=== PATIENT | female | born 1960 | race Caucasian/White ===

== ENCOUNTER 2023-12-21 09:52 | Inpatient (IN) | payer BC, MEDICARE ==
[2023-12-21 10:45] LABS: Anisocytosis Slight; Basophils # (A) 0.1 k/uL (0-0.2); Basophils % (A) 0 %; Eosinophils # (A) 0.1 k/uL (0-0.7); Eosinophils % (A) 1 %; HCT 49.1 % (34.0-46.0); HGB 14.2 gm/dL (11.4-16.0); Hypochromasia Marked; Lymphocytes # (A) 1.2 k/uL (1.0-4.8); Lymphocytes % (A) 9 %; MCH 24.4 pg (25.0-35.0); MCHC 28.9 g/dL (31.0-37.0); MCV 84.4 fL (80.0-100.0); Mean Platelet Volume 8.5; Monocytes # (A) 0.7 k/uL (0-1.0); Monocytes % (A) 5 %; Neutrophils % (A) 83 %; Platelet Count 255 k/uL (150-450); RBC 5.82 m/uL (3.80-5.40); RDW 16.3 % (11.5-15.5); WBC 13.3 k/uL (3.8-10.6)
[2023-12-21 11:00] LABS: ALT 11 U/L (4-34); AST 23 U/L (14-36); African American GFR (CKD) >90 (>60 ml/min/1.73 sqM); Albumin 3.6 g/dL (3.5-5.0); Alkaline Phosphatase 108 U/L (38-126); Anion Gap 3 mmol/L; Blood Urea Nitrogen 21 mg/dL (7-17); Calcium 8.9 mg/dL (8.4-10.2); Carbon Dioxide 36 mmol/L (22-30); Chloride 103 mmol/L (98-107); Glucose 134 mg/dL (74-99); Non-African American GFR(CKD) >90 (>60 ml/min/1.73 sqM); Potassium 4.2 mmol/L (3.5-5.1); Sodium 142 mmol/L (137-145); Total Bilirubin 0.7 mg/dL (0.2-1.3); Total Protein 6.9 g/dL (6.3-8.2)
[2023-12-21 11:03] LABS: INR 1.1 (<1.2)
[2023-12-21 11:04] LABS: Partial Thromboplastin Time 23.7 sec (22.0-30.0); Prothrombin Time 11.4 sec (10.0-12.5)
[2023-12-21 11:07] LABS: NT-Pro-B-Type Natriuretic Pept 2190 pg/mL
--- NOTE | 2023-12-21 11:08 | XR ---
EXAMINATION TYPE: XR chest 2V DATE OF EXAM: 12/21/2023 10:49 AM CLINICAL INDICATION:Female, 63 years old with history of difficulty breathing; [facility] COMPARISON: None TECHNIQUE: XR chest 2V Frontal and lateral views of the chest. FINDINGS: Lungs/Pleura: There is no evidence of pleural effusion, focal consolidation, or pneumothorax. Pulmonary vascularity: Pulmonary vascular congestion. Heart/mediastinum: Cardiomediastinal silhouette is enlarged and stable. Musculoskeletal: No acute osseous pathology. IMPRESSION: Cardiomegaly and mild pulmonary vascular congestion. Correlate with BNP for congestive heart failure.
--- NOTE | 2023-12-21 11:58 | XR ---
EXAMINATION TYPE: XR humerus LT DATE OF EXAM: 12/21/2023 11:45 AM CLINICAL INDICATION:Female, 63 years old with history of left arm pain; [facility] COMPARISON: None TECHNIQUE: XR humerus LT examined in frontal and lateral projections. FINDINGS: No evidence of acute osseous pathology, joint dislocation, or soft tissue swelling. The rem aining portions of the visualized chest are unremarkable. IMPRESSION: 1. No acute osseous pathology. 2. Mild left shoulder osteoarthrosis.
[2023-12-21] MEDS: LORazepam 2 MG/ML INJ IV STA ×2 (12:26→15:28)
--- NOTE | 2023-12-21 13:27 | CT ---
EXAMINATION TYPE: CT chest angio for PE DATE OF EXAM: 12/21/2023 COMPARISON: Radiograph same day HISTORY: 63-year-old female SOB, hypoxic 60% tachy. TECHNIQUE: Contiguous axial scanning of the chest performed with IV Contrast, patient injected with 1 00 mL of Isovue 300. Coronal and sagittal MIP reconstructions performed. CT DLP: 1176.4 mGycm Automated exposure control for dose reduction was used. FINDINGS: Partially visualized heterogeneous and nodular appearance to the thyroid gland. This can be further e valuated with dedicated thyroid ultrasound if indicated. There is generalized anasarca change. Heart is mildly enlarged without pericardial effusion. No flattening of the interventricular septum t brie there is refluxing contrast into the hepatic veins. Ascending aorta is ectatic at 3.9 cm with mild atherosclerotic arch calcifications and bovine configu ration to the aortic arch. Large caliber to the main right and left pulmonary arteries up to 3.1 cm suggesting underlying pulmon delma artery hypertension. No large central pulmonary embolus. No definite lobar branch pulmonary embol us. However, the exam is limited due to large body habitus, suboptimal contrast bolus, and breathing motion. Many of the segmental and more distal arterial branches are very limited to nondiagnostic emb addis in these locations cannot be adequately excluded on the basis of this exam. No thoracic lymphadenopathy by CT size criteria. Extensive dependent opacities in the lower lobes with additional reticular change. Additional septal lines in the upper lungs and dependent groundglass in the upper lobes. Prominent strandy areas of ate lectasis mid and lower lungs. Possible underlying fatty infiltration of the liver. Dependent sludge in the gallbladder. Mild diffus e thickening left adrenal gland without discrete nodularity. Advanced degenerative disc disease lower thoracic and upper lumbar spine. IMPRESSION: 1. A COMBINATION OF FACTORS INCLUDING LARGE BODY HABITUS, SUBOPTIMAL CONTRAST BOLUS, AND BREATHING MO TION LIMITS THE EXAM. NO LARGE PULMONARY EMBOLUS IS SEEN IN THE CENTRAL OR LOBAR BRANCHES. SEGMENTAL AND MORE DISTAL ARTERIAL BRANCHES ARE LIMITED TO NONDIAGNOSTIC AND EMBOLI IN THESE LOCATIONS CANNOT B E EXCLUDED ON THE BASIS OF THIS EXAM. 2. ANASARCA, MILD CARDIOMEGALY, PULMONARY ARTERIAL HYPERTENSION, AND UPPER LUNG SEPTAL LINES. CORRELA TE TO EXCLUDE MILD CHF. 3. PROMINENT DEPENDENT BIBASILAR OPACITIES. CORRELATE TO EXCLUDE INFECTIOUS OR ASPIRATION PNEUMONITIS .
--- NOTE | 2023-12-21 13:53 | ED ---
SOB HPI - General Chief Complaint: Shortness of Breath Stated Complaint: SOB Time Seen by Provider: 12/21/23 10:30 Source: patient Mode of arrival: ambulatory Limitations: no limitations - History of Present Illness Initial Comments: 63-year-old female with no reported past medical conditions who presents the emergency department short of breath. is at bedside and helps provide the history. States that the patient has not seen a doctor in years. She has been short of breath for the past couple of months that she does report to upper respiratory infections but states that her breathing got worse over the past couple of days. She denies any chest pain. Does admit to a nonproductive cough. Patient has lower extremity edema. Denies history of heart failure. No history of DVT or PE. No fevers. states that she has had some non sensical speech. upon arrival to the hospital the patient had an oxygen saturation of 63%. No other alleviating, precipitating or modifying factors - Related Data Home Medications Medication Instructions Recorded Confirmed Ascorbic Acid [Vitamin C] 1,000 mg PO DAILY 12/21/23 12/21/23 Ibuprofen [Motrin Ib] 200 - 400 mg PO Q8H PRN 12/21/23 12/21/23 Vitamin D3(Unknown Dose) 1 tab PO DAILY 12/21/23 12/21/23 Zinc Gluconate [Zinc] 50 mg PO DAILY 12/21/23 12/21/23 Previous Rx's Medication Instructions Recorded Apixaban [Eliquis] 5 mg PO BID #60 tab 12/23/23 Allergies Allergy/AdvReac Type Severity Reaction Status Date / Time No Known Allergies Allergy Verified 12/21/23 12:03 Review of Systems ROS Statement: Those systems with pertinent positive or pertinent negative responses have been documented in the HPI. ROS Other: All systems not noted in ROS Statement are negative. Past Medical History Past Medical History: No Reported History History of Any Multi-Drug Resistant Organisms: None Reported Past Surgical History: No Surgical Hx Reported Past Psychological History: No Psychological Hx Reported Smoking Status: Current every day smoker Past Alcohol Use History: None Reported Past Drug Use History: None Reported General Exam Limitations: no limitations General appearance: alert, in distress Head exam: Present: atraumatic, normocephalic, normal inspection Eye exam: Present: normal appearance, PERRL, EOMI. Absent: scleral icterus, conjunctival injection, periorbital swelling ENT exam: Present: normal exam, mucous membranes moist Neck exam: Present: normal inspection. Absent: tenderness, meningismus, lymphadenopathy Respiratory exam: Present: respiratory distress, rales, accessory muscle use Cardiovascular Exam: Present: normal rhythm, tachycardia, normal heart sounds. Absent: systolic murmur, diastolic murmur, rubs, gallop, clicks GI/Abdominal exam: Present: soft, normal bowel sounds. Absent: distended, tenderness, guarding, rebound, rigid Course Vital Signs 12/21/23 12/21/23 12/21/23 10:28 10:36 11:29 Temperature 98.0 F Pulse Rate 110 H 97 Respiratory 22 20 18 Rate Blood Pressure 126/71 111/93 O2 Sat by Pulse 63 L 98 Oximetry Fraction of Inspired Oxygen (FIO2) 12/21/23 12/21/23 12/21/23 12:00 14:00 14:31 Temperature Pulse Rate 93 110 H Respiratory 24 21 Rate Blood Pressure 135/92 153/105 O2 Sat by Pulse 97 92 L Oximetry Fraction of 100 Inspired Oxygen (FIO2) 12/21/23 12/21/23 12/21/23 15:00 15:45 16:02 Temperature Pulse Rate 98 105 H Respiratory 21 17 Rate Blood Pressure 134/107 122/72 O2 Sat by Pulse 95 96 Oximetry Fraction of 100 70 Inspired Oxygen (FIO2) 12/21/23 12/21/23 12/21/23 16:15 16:32 17:00 Temperature Pulse Rate 86 90 Respiratory 20 21 Rate Blood Pressure 149/62 97/52 O2 Sat by Pulse 92 L Oximetry Fraction of 70 100 Inspired Oxygen (FIO2) 12/21/23 12/21/23 17:45 18:00 Temperature 98.2 F Pulse Rate 100 98 Respiratory 21 21 Rate Blood Pressure 129/35 129/35 O2 Sat by Pulse 98 97 Oximetry Fraction of 100 Inspired Oxygen (FIO2) Procedures - ABG Interpretation Ph: 7.2 PCO2: 88 PO2: 46 Bicarbonate: 38 Interpretation: respiratory acidosis Medical Decision Making - Medical Decision Making Was pt. sent in by a medical professional or institution (, PA, AQUATIC HABITAT BIOLOGIST, urgent care, hospital, or custodial...) When possible be specific @ -No Did you speak to anyone other than the patient for history (EMS, parent, family, police, friend...)? What history was obtained from this source @ -Spoke with for history Did you review nursing and triage notes (agree or disagree)? Why? @ -I reviewed and agree with nursing and triage notes Were old charts reviewed (outside hosp., previous admission, EMS record, old EKG, old radiological studies, urgent care reports/EKG's, custodial records)? Report findings @ -No old charts were reviewed Differential Diagnosis (chest pain, altered mental status, abdominal pain women, abdominal pain men, vaginal bleeding, weakness, fever, dyspnea, syncope, headache, dizziness, GI bleed, back pain, seizure, CVA, palpatations, mental health, musculoskeletal)? @ -Differential Dyspnea: Coronary syndrome, arrhythmia, tamponade, asthma, COPD, pulmonary embolism, pneumonia, pneumothorax, pulmonary effusion, anaphylaxis, diabetic ketoacidosis, flailed chest, pulmonary contusion, diaphragmatic rupture, anemia, neuromuscular, this is not meant to be an all-inclusive list. EKG interpreted by me (3pts min.). @ -Yes and demonstrates sinus tachycardia with a rate of 109. PA interval 100. QRS 93. QTc of 395. No acute ST segment elevations or depression X-rays interpreted by me (1pt min.). @ -Yes and demonstrates pulmonary vascular congestion CT interpreted by me (1pt min.). @ -Yes and there is no large central PE U/S interpreted by me (1pt. min.). @ -None done What testing was considered but not performed or refused? (CT, X-rays, U/S, labs)? Why? @ -None What meds were considered but not given or refused? Why? @ -None Did you discuss the management of the patient with other professionals (professionals i.e. , PA, AQUATIC HABITAT BIOLOGIST, lab, RT, psych nurse, oncology social worker, beater and pulper feeder, teacher, highway patrol officer, field nurse case manager)? Give summary @ -Spoke with Sheet Was smoking cessation discussed for >3mins.? @ -No Was critical care preformed (if so, how long)? @ -40 minutes for BiPAP management Were there social determinants of health that impacted care today? How? (Homelessness, low income, unemployed, alcoholism, drug addiction, transportation, low edu. Level, literacy, decrease access to med. care, fdc, rehab)? @ -Patient refuses to see a doctor per the . Was there de-escalation of care discussed even if they declined (Discuss DNR or withdrawal of care, Hospice)? DNR status @ -No What co-morbidities impacted this encounter? (DM, HTN, Smoking, COPD, CAD, Cancer, CVA, ARF, Chemo, Hep., AIDS, mental health diagnosis, sleep apnea, morbid obesity)? @ -None known Was patient admitted / discharged? Hospital course, mention meds given and route, prescriptions, significant lab abnormalities, going to OR and other pertinent info. @ -Admitted. Upon arrival patient was placed in trauma two. She is saturating 63%. She was placed on a nonrebreather. IV is established. Laboratory studies are conducted. Chest x-ray was performed. Due to profound hypoxia, CTA was performed of the chest. Patient requesting sedating medications for procedure and therefore she did receive [address] demonstrates no central PE. Patient reevaluated and appears to be more encephalopathic. ABG performed which demonstrates high CO2. Because of this patient is placed on BiPAP. Patient remains anxious and continuing to ask for more sedation. 0.5 mg given as to not decrease respiratory drive but necessary to have patient keep the bipap on her face. Spoke with Dr. Miller for admission. Undiagnosed new problem with uncertain prognosis? @ -yes Drug Therapy requiring intensive monitoring for toxicity (Heparin, Nitro, Insulin, Cardizem)? @ -No Were any procedures done? @ -No Diagnosis/symptom? @ -acute bipap dependant resp failure, hypoxia, new onset chf Acute, or Chronic, or Acute on Chronic? @ -acute Uncomplicated (without systemic symptoms) or Complicated (systemic symptoms)? @ -complicated Side effects of treatment? @ -No Exacerbation, Progression, or Severe Exacerbation? @ -No Poses a threat to life or bodily function? How? (Chest pain, [place], [place], pneumonia, PE, COPD, DKA, ARF, appy, cholecystitis, CVA, Diverticulitis, Homicidal, Suicidal, threat to staff... and all critical care pts) @ -yes patient arrives significantly hypoxic - Lab Data Result diagrams: 12/23/23 04:05 12/23/23 04:05 Lab Results 12/21/23 12/21/23 12/21/23 Range/Units 10:28 10:28 10:28 WBC 13.3 H (3.8-10.6) k/uL RBC 5.82 H (3.80-5.40) m/uL Hgb 14.2 (11.4-16.0) gm/dL Hct 49.1 H (34.0-46.0) % MCV 84.4 (80.0-100.0) fL MCH 24.4 L (25.0-35.0) pg MCHC 28.9 L (31.0-37.0) g/dL RDW 16.3 H (11.5-15.5) % Plt Count 255 (150-450) k/uL MPV 8.5 Neutrophils % 83 % Lymphocytes % 9 % Monocytes % 5 % Eosinophils % 1 % Basophils % 0 % Neutrophils # 11.0 H (1.3-7.7) k/uL Lymphocytes # 1.2 (1.0-4.8) k/uL Monocytes # 0.7 (0-1.0) k/uL Eosinophils # 0.1 (0-0.7) k/uL Basophils # 0.1 (0-0.2) k/uL Hypochromasia Marked Anisocytosis Slight PT 11.4 (10.0-12.5) sec INR 1.1 (<1.2) APTT 23.7 (22.0-30.0) sec D-Dimer 0.92 H (<0.60) mg/L FEU Sample Site ABG pH (7.35-7.45) ABG pCO2 (35-45) mmHg ABG pO2 (83-108) mmHg ABG HCO3 (21-25) mmol/L ABG Total CO2 (19-24) mmol/L ABG O2 Saturation (94-97) % ABG Base Excess mmol/L Que Test FiO2 % Sodium 142 (137-145) mmol/L Potassium 4.2 (3.5-5.1) mmol/L Chloride 103 (98-107) mmol/L Carbon Dioxide 36 H (22-30) mmol/L Anion Gap 3 mmol/L BUN 21 H (7-17) mg/dL Creatinine 0.54 (0.52-1.04) mg/dL Est GFR (CKD-EPI)AfAm >90 (>60 ml/min/1.73 sqM) Est GFR (CKD-EPI)NonAf >90 (>60 ml/min/1.73 sqM) Glucose 134 H (74-99) mg/dL Plasma Lactic Acid Sher (0.7-2.0) mmol/L Calcium 8.9 (8.4-10.2) mg/dL Total Bilirubin 0.7 (0.2-1.3) mg/dL AST 23 (14-36) U/L ALT 11 (4-34) U/L Alkaline Phosphatase 108 (38-126) U/L Troponin I (0.000-0.034) ng/mL NT-Pro-B Natriuret Pep 2190 pg/mL Total Protein 6.9 (6.3-8.2) g/dL Albumin 3.6 (3.5-5.0) g/dL Influenza Type A (PCR) (Not Detectd) Influenza Type B (PCR) (Not Detectd) RSV (PCR) (Not Detectd) SARS-CoV-2 (PCR) (Not Detectd) 12/21/23 12/21/23 12/21/23 Range/Units 10:28 10:28 10:28 WBC (3.8-10.6) k/uL RBC (3.80-5.40) m/uL Hgb (11.4-16.0) gm/dL Hct (34.0-46.0) % MCV (80.0-100.0) fL MCH (25.0-35.0) pg MCHC (31.0-37.0) g/dL RDW (11.5-15.5) % Plt Count (150-450) k/uL MPV Neutrophils % % Lymphocytes % % Monocytes % % Eosinophils % % Basophils % % Neutrophils # (1.3-7.7) k/uL Lymphocytes # (1.0-4.8) k/uL Monocytes # (0-1.0) k/uL Eosinophils # (0-0.7) k/uL Basophils # (0-0.2) k/uL Hypochromasia Anisocytosis PT (10.0-12.5) sec INR (<1.2) APTT (22.0-30.0) sec D-Dimer (<0.60) mg/L FEU Sample Site ABG pH (7.35-7.45) ABG pCO2 (35-45) mmHg ABG pO2 (83-108) mmHg ABG HCO3 (21-25) mmol/L ABG Total CO2 (19-24) mmol/L ABG O2 Saturation (94-97) % ABG Base Excess mmol/L Que Test FiO2 % Sodium (137-145) mmol/L Potassium (3.5-5.1) mmol/L Chloride (98-107) mmol/L Carbon Dioxide (22-30) mmol/L Anion Gap mmol/L BUN (7-17) mg/dL Creatinine (0.52-1.04) mg/dL Est GFR (CKD-EPI)AfAm (>60 ml/min/1.73 sqM) Est GFR (CKD-EPI)NonAf (>60 ml/min/1.73 sqM) Glucose (74-99) mg/dL Plasma Lactic Acid Sher 1.4 (0.7-2.0) mmol/L Calcium (8.4-10.2) mg/dL Total Bilirubin (0.2-1.3) mg/dL AST (14-36) U/L ALT (4-34) U/L Alkaline Phosphatase (38-126) U/L Troponin I 0.022 (0.000-0.034) ng/mL NT-Pro-B Natriuret Pep pg/mL Total Protein (6.3-8.2) g/dL Albumin (3.5-5.0) g/dL Influenza Type A (PCR) Not Detected (Not Detectd) Influenza Type B (PCR) Not Detected (Not Detectd) RSV (PCR) Not Detected (Not Detectd) SARS-CoV-2 (PCR) Not Detected (Not Detectd) 12/21/23 Range/Units 14:16 WBC (3.8-10.6) k/uL RBC (3.80-5.40) m/uL Hgb (11.4-16.0) gm/dL Hct (34.0-46.0) % MCV (80.0-100.0) fL MCH (25.0-35.0) pg MCHC (31.0-37.0) g/dL RDW (11.5-15.5) % Plt Count (150-450) k/uL MPV Neutrophils % % Lymphocytes % % Monocytes % % Eosinophils % % Basophils % % Neutrophils # (1.3-7.7) k/uL Lymphocytes # (1.0-4.8) k/uL Monocytes # (0-1.0) k/uL Eosinophils # (0-0.7) k/uL Basophils # (0-0.2) k/uL Hypochromasia Anisocytosis PT (10.0-12.5) sec INR (<1.2) APTT (22.0-30.0) sec D-Dimer (<0.60) mg/L FEU Sample Site Right Radial ABG pH 7.24 L (7.35-7.45) ABG pCO2 88 H* (35-45) mmHg ABG pO2 47 L* (83-108) mmHg ABG HCO3 38 H (21-25) mmol/L ABG Total CO2 41 H (19-24) mmol/L ABG O2 Saturation 77.4 L (94-97) % ABG Base Excess 10.9 mmol/L Que Test Yes FiO2 100 % Sodium (137-145) mmol/L Potassium (3.5-5.1) mmol/L Chloride (98-107) mmol/L Carbon Dioxide (22-30) mmol/L Anion Gap mmol/L BUN (7-17) mg/dL Creatinine (0.52-1.04) mg/dL Est GFR (CKD-EPI)AfAm (>60 ml/min/1.73 sqM) Est GFR (CKD-EPI)NonAf (>60 ml/min/1.73 sqM) Glucose (74-99) mg/dL Plasma Lactic Acid Sher (0.7-2.0) mmol/L Calcium (8.4-10.2) mg/dL Total Bilirubin (0.2-1.3) mg/dL AST (14-36) U/L ALT (4-34) U/L Alkaline Phosphatase (38-126) U/L Troponin I (0.000-0.034) ng/mL NT-Pro-B Natriuret Pep pg/mL Total Protein (6.3-8.2) g/dL Albumin (3.5-5.0) g/dL Influenza Type A (PCR) (Not Detectd) Influenza Type B (PCR) (Not Detectd) RSV (PCR) (Not Detectd) SARS-CoV-2 (PCR) (Not Detectd) Critical Care Time Critical Care Time: Yes Disposition Clinical Impression: Hypoxia, BiPAP (biphasic positive airway pressure) dependence, New onset of congestive heart failure Disposition: ADMITTED IP TO THIS HOSP Condition: Serious Is patient prescribed a controlled substance at d/c from ED?: No Time of Disposition: 14:32 Decision to Admit Reason: Admit from EC Decision Date: 12/21/23 Decision Time: 14:32
[2023-12-21] MEDS: FUROSEMIDE 10 MG/ML 4 ML VIAL IV STA (14:00)
[2023-12-21 14:18] LABS: ABG Base Excess 10.9 mmol/L; ABG HCO3 38 mmol/L (21-25); ABG PH 7.24 (7.35-7.45); ABG TCO2 41 mmol/L (19-24); Allen Test Performed? Yes
[2023-12-21] MEDS ORDERED: NALOXONE 0.4 MG/ML 1 ML VIAL IV PRN (14:32)
--- NOTE | 2023-12-21 16:49 | CA ---
Transthoracic Echo Report Name: Karen Chew Age: 63 Gender: F : 1960 Exam Date: 12/21/2023 15:08 Exam Location: [facility] Ht (in): 62 Wt (lb): 225 Ordering Physician: Carole Frazier DO Attending/Referring Phys: [id number], Karin Tobacco Stripping Machine Operator Melissa Dunn RCS Procedure CPT: Indications: sob, new onset heart failure Cardiac Hx: Technical Quality: Very technically difficult study Contrast 1: Definity Total Dose (mL): 2 Contrast 2: Total Dose (mL): MEASUREMENTS (Male / Female) Normal Values FINDINGS Left Ventricle Left ventricular ejection fraction is estimated at 50-55 %. Left ventricle not well visualized. Right Ventricle Right ventricle not well visualized. Right Atrium Right atrium not well visualized. Left Atrium Left atrium not well visualized. Mitral Valve Mitral valve not well visualized. Aortic Valve Aortic valve not well visualized. Tricuspid Valve Tricuspid valve not well visualized. Pulmonic Valve Pulmonic valve not well visualized. Pericardium No pericardial effusion. Aorta Aortic root and proximal ascending aorta not well visualized. CONCLUSIONS Technically suboptimal study Left ventricular systolic function appears normal Previewed by: Dr. Agustín Moon MD (Electronically Signed) Final Date: 21 December 2023 16:48
[2023-12-21 17:11] LABS: ABG Base Excess 11.3 mmol/L; ABG HCO3 38 mmol/L (21-25); ABG Oxygen Saturation 97.1 % (94-97); ABG PH 7.28 (7.35-7.45); ABG PO2 104 mmHg (83-108); ABG TCO2 41 mmol/L (19-24); Allen Test Performed? Yes
[2023-12-21 17:17] LABS: ABG PCO2 81 mmHg (35-45)
[2023-12-21 17:19] LABS: ABG Oxygen Saturation 77.4 % (94-97); ABG PCO2 88 mmHg (35-45); ABG PO2 47 mmHg (83-108)
[2023-12-21 18:17] LABS: Glucose,Whole Blood 133 mg/dL (70-110)
[2023-12-21] MEDS ORDERED: Potassium Replacement Protocol 1 EACH MISC MISCELLANE PRN (18:22)
[2023-12-21] MEDS ORDERED: Magnesium Replacement Protocol 1 EACH MISC MISCELLANE PRN (18:22)
[2023-12-21] MEDS ORDERED: DEXTROSE 50% SYRINGE 50 ML IVP PRN ×2 (20:49)
[2023-12-21] MEDS ORDERED: HEPARIN SODIUM,PORCINE 5,000 UNIT/ML 1 ML VIAL SQ SCH (21:00)
--- NOTE | 2023-12-21 21:05 | P.HPIM ---
History of Present Illness This is a pleasant 63 years of with past medical history of multiple medical problems Presents emergency room because of dyspnea, she received 1 dose of Ativan to help her get through the CAT scan. After the test patient becomes more encephalopathic and required more respiratory support and she was placed on BiPAP. Patient provided information. She follows simple commands. She has decreased breath sounds on both sides with scattered wheezing. No chest pain. Abdomen soft. Tachypneic but afebrile Labs showed mild leukocytosis of 13.3. Patient with rest of CBC is unremarkable, INR 1.1 BMP and liver function tests are unremarkable as well. pH is low 7.24 and elevated pCO2 of 81. proBNP is elevated to 190. Troponin -0.02 Influenza A and type B, RSV, SARS (coronavirus) are and detected On the preserved normal left ventricle ejection fraction of 50 to 55% but other than that it was of suboptimal study and right ventricle could not be visualized CTA of the chest showing no pulmonary embolism. Bilateral basal consolidation suspicious for infectious process. Also with evidence of CHF and cardiomegaly. With pulmonary hypertension. Patient was started on Unasyn, IV vancomycin and Solu-Medrol. Review of Systems ROS unobtainable: due to mental status Past Medical History Past Medical History: No Reported History History of Any Multi-Drug Resistant Organisms: None Reported Past Surgical History: No Surgical Hx Reported Past Psychological History: No Psychological Hx Reported Smoking Status: Current every day smoker Past Alcohol Use History: None Reported Past Drug Use History: None Reported Medications and Allergies Home Medications Medication Instructions Recorded Confirmed Type Ascorbic Acid [Vitamin C] 1,000 mg PO DAILY 12/21/23 12/21/23 History Ibuprofen [Motrin Ib] 200 - 400 mg PO Q8H PRN 12/21/23 12/21/23 History Vitamin D3(Unknown Dose) 1 tab PO DAILY 12/21/23 12/21/23 History Zinc Gluconate [Zinc] 50 mg PO DAILY 12/21/23 12/21/23 History Allergies Allergy/AdvReac Type Severity Reaction Status Date / Time No Known Allergies Allergy Verified 12/21/23 12:03 Physical Exam Vitals: Vital Signs Temp Pulse Resp BP Pulse Ox FiO2 12/21/23 20:54 40 12/21/23 19:00 101 H 22 138/95 95 12/21/23 18:00 98.2 F 98 21 129/35 97 100 12/21/23 17:45 100 21 129/35 98 12/21/23 17:00 90 21 97/52 12/21/23 16:32 100 12/21/23 16:15 86 20 149/62 92 L 70 12/21/23 16:02 70 12/21/23 15:45 105 H 17 122/72 96 100 12/21/23 15:00 98 21 134/107 95 12/21/23 14:31 100 12/21/23 14:00 110 H 21 153/105 92 L 12/21/23 12:00 93 24 135/92 97 12/21/23 11:29 97 18 111/93 98 12/21/23 10:36 20 12/21/23 10:28 98.0 F 110 H 22 126/71 63 L Intake and Output 12/21/23 12/21/23 12/21/23 06:59 14:59 22:59 Output Total 1250 Balance -1250 Output: Urine 1250 Other: Weight 102.058 kg 102.058 kg -GENERAL: The patient is, awake on BiPAP machine and cannot provide information. Obese HEENT: Pupils are round and equally reacting to light. EOMI. No scleral icterus. No conjunctival pallor. Normocephalic, atraumatic. No pharyngeal erythema. No thyromegaly. CARDIOVASCULAR: S1 and S2 present. No murmurs, rubs, or gallops. -PULMONARY: Chest is clear to auscultation, no wheezing , no crackles. Decreased air entry on both sides ABDOMEN: Soft, nontender, nondistended, normoactive bowel sounds. No palpable organomegaly. MUSCULOSKELETAL: No joint swelling or deformity. EXTREMITIES: No cyanosis, clubbing, or pedal edema. NEUROLOGICAL: Gross neurological examination did not reveal any focal deficits. SKIN: No rashes. no petechiae. Results CBC & Chem 7: 12/21/23 10:28 12/21/23 10:28 Labs: Abnormal Lab Results - Last 24 Hours (Table) 12/21/23 12/21/23 12/21/23 Range/Units 10:28 10: 10:28 WBC 13.3 H (3.8-10.6) k/uL RBC 5.82 H (3.80-5.40) m/uL Hct 49.1 H (34.0-46.0) % MCH 24.4 L (25.0-35.0) pg MCHC 28.9 L (31.0-37.0) g/dL RDW 16.3 H (11.5-15.5) % Neutrophils # 11.0 H (1.3-7.7) k/uL D-Dimer 0.92 H (<0.60) mg/L FEU ABG pH (7.35-7.45) ABG pCO2 (35-45) mmHg ABG pO2 (83-108) mmHg ABG HCO3 (21-25) mmol/L ABG Total CO2 (19-24) mmol/L ABG O2 Saturation (94-97) % Carbon Dioxide 36 H (22-30) mmol/L BUN 21 H (7-17) mg/dL Glucose 134 H (74-99) mg/dL POC Glucose (mg/dL) (70-110) mg/dL 12/21/23 12/21/23 12/21/23 Range/Units 14:16 17:04 18:15 WBC (3.8-10.6) k/uL RBC (3.80-5.40) m/uL Hct (34.0-46.0) % MCH (25.0-35.0) pg MCHC (31.0-37.0) g/dL RDW (11.5-15.5) % Neutrophils # (1.3-7.7) k/uL D-Dimer (<0.60) mg/L FEU ABG pH 7.24 L 7.28 L (7.35-7.45) ABG pCO2 88 H* 81 H* (35-45) mmHg ABG pO2 47 L* (83-108) mmHg ABG HCO3 38 H 38 H (21-25) mmol/L ABG Total CO2 41 H 41 H (19-24) mmol/L ABG O2 Saturation 77.4 L 97.1 H (94-97) % Carbon Dioxide (22-30) mmol/L BUN (7-17) mg/dL Glucose (74-99) mg/dL POC Glucose (mg/dL) 133 H (70-110) mg/dL Assessment and Plan Assessment: Acute diastolic CHF with preserved ejection fraction Acute COPD exacerbation Bilateral basal pneumonia Obesity hypoventilation syndrome Pulmonary hypertension Metabolic encephalopathy Aspiratory failure Morbid obesity with BMI of more than 40 Respiratory acidosis Plan: Ortho Continue with antibiotic, Unasyn Continue with IV Solu-Medrol Continue with Lasix IV pulmonary team consult Labs and medication were reviewed.. Continue same treatment. Continue with symptomatic treatment. Resume home medication. Monitor labs and vitals. DVT and GI prophylaxis. Further recommendations as per clinical course of the patient DVT prophylaxis: Subcutaneous heparin GI Prophylaxis: Ppi Prognosis is guarded
[2023-12-21 21:11] LABS: Glucose,Whole Blood 106 mg/dL (70-110)
--- NOTE | 2023-12-21 21:16 | P.CNPUL ---
History of Present Illness Consult date: 12/21/23 Reason for consult: dyspnea, hypoxemia History of present illness: This is a morbidly obese 63-year-old female patient with typical features of obstructive sleep apnea and obesity hypoventilation syndrome. The patient came in to the emergency department because of worsening shortness of breath. While undergoing a CAT scan of the chest, the patient also was given a dose of Ativan. Subsequently, the patient became obtunded, lethargic and sleepy. Blood gas showed hypercapnic respiratory failure probably a component of an acute on top of chronic hypercapnic respiratory failure with a pH of 7.24 with a pCO2 of 88 and pO2 of 47. Based on that, the patient was placed on a BiPAP at a pressure of 12 over 5 cm of water. Currently, the BiPAP is running and the patient is on FiO2 100% which is gradually being weaned off. Most recent blood gas showed a pH of 7.28 with a pCO2 of 81 and pO2 of 104. She is able to generate a tidal volume of 3 50-400. She underwent a CT angiogram of the chest that was suboptimal and there was no evidence of any central pulmonary embolism. There was anasarca with mild cardiomegaly and pulmonary arterial hypertension and mild component of CHF as the patient had upper lung septal lines being more prominent and thickened. The patient also had some atelectatic changes and early pneumonitis in the lower lobes bilaterally. Echocardiogram was again suboptimal due to her body habitus. The patient had a preserved LV function without any valvular abnormalities. Blood work shows chronic metabolic alkalosis with a serum bicarb of 36 and a sodium level of 142 and a potassium level of 4.2. WBC count of 13.3 with a hemoglobin 14.2 and a platelet count of 255. The viral panel has been negative. proBNP level is 2190. Troponins are 0.02. Smoking status is not known. Review of Systems ROS unobtainable: due to mental status Past Medical History Past Medical History: No Reported History History of Any Multi-Drug Resistant Organisms: None Reported Past Surgical History: No Surgical Hx Reported, Unable to Obtain Past Anesthesia/Blood Transfusion Reactions: Unable to Obtain Past Psychological History: No Psychological Hx Reported Smoking Status: Current every day smoker Past Alcohol Use History: None Reported Past Drug Use History: None Reported Medications and Allergies Home Medications Medication Instructions Recorded Confirmed Type Ascorbic Acid [Vitamin C] 1,000 mg PO DAILY 12/21/23 12/21/23 History Ibuprofen [Motrin Ib] 200 - 400 mg PO Q8H PRN 12/21/23 12/21/23 History Vitamin D3(Unknown Dose) 1 tab PO DAILY 12/21/23 12/21/23 History Zinc Gluconate [Zinc] 50 mg PO DAILY 12/21/23 12/21/23 History Allergies Allergy/AdvReac Type Severity Reaction Status Date / Time No Known Allergies Allergy Verified 12/21/23 12:03 Physical Exam Vitals: Vital Signs Temp Pulse Resp BP Pulse Ox FiO2 12/21/23 20:54 40 12/21/23 19:00 101 H 22 138/95 95 12/21/23 18:00 98.2 F 98 21 129/35 97 100 12/21/23 17:45 100 21 129/35 98 12/21/23 17:00 90 21 97/52 12/21/23 16:32 100 12/21/23 16:15 86 20 149/62 92 L 70 12/21/23 16:02 70 12/21/23 15:45 105 H 17 122/72 96 100 12/21/23 15:00 98 21 134/107 95 12/21/23 14:31 100 12/21/23 14:00 110 H 21 153/105 92 L 12/21/23 12:00 93 24 135/92 97 12/21/23 11:29 97 18 111/93 98 12/21/23 10:36 20 12/21/23 10:28 98.0 F 110 H 22 126/71 63 L Intake and Output 12/21/23 12/21/23 12/21/23 06:59 14:59 22:59 Output Total 1250 Balance -1250 Output: Urine 1250 Other: Weight 102.058 kg 102.058 kg Morbidly obese with a BMI of 41.2, lethargic, sleepy and she is able to tolerate the BiPAP without having any major difficulties. Head exam was generally normal. There was no scleral icterus or corneal arcus. Mucous membranes were moist. Neck was supple and without jugular venous distension, thyromegaly, or carotid bruits. Carotids were easily palpable bilaterally. There was no adenopathy. Carotid a posterior pharynx with a Mallampati class IV Lung sounds are diminished bilaterally along with prolongation of the expiratory phase of breathing as Per wheezes Heart sounds are distant, positive S1-S2, no significant murmurs could be appreciated. Abdomen is obese and nontender. Organs cannot be accurately felt. No direct tenderness. No rebound tenderness. No guarding. Extremities reveal +1 pitting edema and there is no cyanosis or clubbing. Examination of the skin revealed no evidence of significant rashes, suspicious appearing nevi or other concerning lesions. Neurologic exam reveals that the patient is withdrawing only to painful stimulation. She is still encephalopathic related to hypercapnic respiratory failure and CO2 narcosis. Pupils are equal reactive to light. No focal neurological deficits. Results - Laboratory Findings CBC and BMP: 12/21/23 10:28 12/21/23 10:28 ABG ABG pH 7.28 (7.35-7.45) L 12/21/23 17:04 ABG pCO2 81 mmHg (35-45) H* 12/21/23 17:04 ABG pO2 104 mmHg (83-108) 12/21/23 17:04 ABG O2 Saturation 97.1 % (94-97) H 12/21/23 17:04 PT/INR, D-dimer PT 11.4 sec (10.0-12.5) 12/21/23 10:28 INR 1.1 (<1.2) 12/21/23 10:28 D-Dimer 0.92 mg/L FEU (<0.60) H 12/21/23 10:28 Abnormal lab findings: Abnormal Labs 12/21/23 12/21/23 12/21/23 10:28 10:28 10:28 WBC 13.3 H RBC 5.82 H Hct 49.1 H MCH 24.4 L MCHC 28.9 L RDW 16.3 H Neutrophils # 11.0 H D-Dimer 0.92 H ABG pH ABG pCO2 ABG pO2 ABG HCO3 ABG Total CO2 ABG O2 Saturation Carbon Dioxide 36 H BUN 21 H Glucose 134 H POC Glucose (mg/dL) 12/21/23 12/21/23 12/21/23 14:16 17:04 18:15 WBC RBC Hct MCH MCHC RDW Neutrophils # D-Dimer ABG pH 7.24 L 7.28 L ABG pCO2 88 H* 81 H* ABG pO2 47 L* ABG HCO3 38 H 38 H ABG Total CO2 41 H 41 H ABG O2 Saturation 77.4 L 97.1 H Carbon Dioxide BUN Glucose POC Glucose (mg/dL) 133 H - Diagnostic Findings Chest x-ray: image reviewed CT scan - chest: image reviewed Assessment and Plan Plan: Acute on chronic hypercapnic and hypoxic respiratory failure, currently on a BiPAP pressure of 12 over 8 cm of water and FiO2 is being titrated. Blood gas was noted. CT of the chest was noted Morbid obesity with a BMI of 41.2 Obstructive sleep apnea along with a component of obesity hypoventilation syndrome, clinically suspected and the patient has chronic metabolic alkalosis suggestive of chronic hypercapnic respiratory failure COPD with prolongation of exhalation of breathing is Explained wheezes CHF with preserved LV function and the patient is interstitial edema, pulmonary arterial hypertension with prominent pulmonary arteries on the CT of the chest and the patient is increased edema lower extremities. The proBNP level has been mildly elevated at 2190 CO2 narcosis with diminished level of consciousness secondary to above Plan Will start the patient on DuoNeb nebulized treatments [id number] Will continue BiPAP therapy at the same pressures and will wean down FiO2 as tolerated and will monitor the blood gases Will put the patient on Lasix 40 mg IV every 8 hours and monitor the fluid balance Will start the patient on IV Solu-Medrol 60 mg every 6 hours Cover the patient empiric antibiotic with Unasyn Will monitor mental status anticipate recovery of the patient's recovery from hypercapnic respiratory failure Will continue to follow up this patient closely in the intensive care unit. Avoid narcotics. Avoid benzodiazepines. Lovenox 40 mg subcu for DVT prophylaxis Aspiration precautions and keep the patient n.p.o. for now Sliding scale insulin coverage Will obtain further history once the patient is more alert and awake. Outpatient polysomnography and treatment accordingly at the later stage. Time with Patient: Greater than 30
[2023-12-21] MEDS: INSULIN ASPART (NovoLOG) 100 UNIT/ML VIAL SQ SCH ×2 (21:21→23:55)
[2023-12-21] MEDS: NICOTINE 21MG/24HR PATCH TRANSDERM SCH (21:22)
[2023-12-21] MEDS: AMPICILLIN-SULBACTAM 3 GM in SODIUM CHLORIDE 0.9% 100 ML IVPB SCH (23:36)
[2023-12-21] MEDS: FUROSEMIDE 10 MG/ML 4 ML VIAL IV SCH (23:37)
[2023-12-21] MEDS: methylPREDNISolone SOD SUCCI 125 MG/2 ML VIAL IV SCH (23:37)
[2023-12-21 23:54] LABS: Glucose,Whole Blood 105 mg/dL (70-110)
[2023-12-22] MEDS: IPRATROPIUM-ALBUTEROL 3 ML NEB INHALATION SCH (01:32)
[2023-12-22 04:34] LABS: Basophils % (A) 0 %; Eosinophils # (A) 0.1 k/uL (0-0.7); Eosinophils % (A) 0 %; HCT 47.5 % (34.0-46.0); HGB 13.6 gm/dL (11.4-16.0); Hypochromasia Marked; Lymphocytes # (A) 0.3 k/uL (1.0-4.8); Lymphocytes % (A) 2 %; MCH 24.9 pg (25.0-35.0); MCHC 28.6 g/dL (31.0-37.0); MCV 87.4 fL (80.0-100.0); Mean Platelet Volume 9.1; Monocytes # (A) 0.6 k/uL (0-1.0); Monocytes % (A) 4 %; Neutrophils # (A) 15.3 k/uL (1.3-7.7); Neutrophils % (A) 94 %; Platelet Count 207 k/uL (150-450); RBC 5.44 m/uL (3.80-5.40); WBC 16.3 k/uL (3.8-10.6)
[2023-12-22 05:00] LABS: African American GFR (CKD) >90 (>60 ml/min/1.73 sqM); Blood Urea Nitrogen 21 mg/dL (7-17); Calcium 8.3 mg/dL (8.4-10.2); Chloride 102 mmol/L (98-107); Glucose 124 mg/dL (74-99); Magnesium 1.8 mg/dL (1.6-2.3); Non-African American GFR(CKD) >90 (>60 ml/min/1.73 sqM); Potassium 4.7 mmol/L (3.5-5.1); Sodium 143 mmol/L (137-145)
[2023-12-22 05:07] LABS: Anion Gap 6 mmol/L; Carbon Dioxide 35 mmol/L (22-30)
[2023-12-22 05:13] LABS: Glucose,Whole Blood 131 mg/dL (70-110)
[2023-12-22] MEDS: PANTOPRAZOLE 40 MG/10 ML VIAL IV SCH (07:48)
[2023-12-22] MEDS: ENOXAPARIN 40 MG/0.4 ML SYRINGE SQ SCH (07:58)
--- NOTE | 2023-12-22 07:59 | P.CRDCN ---
History of Present Illness Consult date: 12/22/23 Chief complaint: SOB History of present illness: This is a 63-year-old female patient with a past medical history significant for smoking and COPD and morbid obesity. No prior history of coronary artery disease or congestive heart failure or cardiac arrhythmia. She is also morbidly obese. The patient is currently in the intensive care unit. She is on BiPAP and she is extremely poor historian and lethargic. History was taken from the chart as well as from the nurse taking care of the patient. The patient presented to the hospital with a few weeks progressive shortness of breath associated with bilateral lower extremities edema. No cough and no sputum production. No fever and no chills. No indication of any chest pain or chest d iscomfort. She was hypoxic when she presented with oxygen saturation in the 60s. She was started on BiPAP and she was admitted to the intensive care unit. Currently she is hemodynamically stable. She underwent further workup including an EKG and that showed sinus mechanism with no significant ST or T wave abnormalities and chest x-ray showed pulmonary vascular congestions and pleural effusion. CT scan of the chest came in to be unremarkable for pulmonary embolism after D-dimer came in to be abnormal. Beside that her WBC was elevated. Renal function and electrolytes were within normal limits. No troponin was performed. In the morning she was noted to be in "atrial fibrillation". Reviewing the EKG showed only sinus mechanism with PACs. The echo revealed normal LV systolic function but the echo was technically very difficult. On examination she has distant heart sounds with regular rhythm and diminished breathing sounds bilaterally and bilateral lower extremities edema. Currently she is on Lasix IV. Assessment Acute hypoxic respiratory failure likely secondary to COPD and CHF Heart failure exacerbation secondary to heart failure with a preserved ejection fraction Morbid obesity Cardiac arrhythmia with PACs at this point No atrial fibrillation was noted Multiple comorbid conditions Plan Continue the current dose of Lasix IV Continue monitoring the kidney function and electrolytes The echo was reviewed as described above Rule out acute coronary syndrome by obtaining serial cardiac enzymes Follow-up with the pt Past Medical History Past Medical History: No Reported History History of Any Multi-Drug Resistant Organisms: None Reported Past Surgical History: No Surgical Hx Reported, Unable to Obtain Past Anesthesia/Blood Transfusion Reactions: Unable to Obtain Past Psychological History: No Psychological Hx Reported Smoking Status: Current every day smoker Past Alcohol Use History: None Reported Past Drug Use History: None Reported Medications and Allergies Home Medications Medication Instructions Recorded Confirmed Type Ascorbic Acid [Vitamin C] 1,000 mg PO DAILY 12/21/23 12/21/23 History Ibuprofen [Motrin Ib] 200 - 400 mg PO Q8H PRN 12/21/23 12/21/23 History Vitamin D3(Unknown Dose) 1 tab PO DAILY 12/21/23 12/21/23 History Zinc Gluconate [Zinc] 50 mg PO DAILY 12/21/23 12/21/23 History Allergies Allergy/AdvReac Type Severity Reaction Status Date / Time No Known Allergies Allergy Verified 12/21/23 12:03 Physical Exam Vitals: Vital Signs Temp Pulse Resp BP Pulse Ox FiO2 12/22/23 07:00 98.6 F 111 H 24 136/69 88 L 12/22/23 06:00 110 H 15 127/76 88 L 100 12/22/23 05:14 110 H 12/22/23 05:00 101 H 18 120/84 89 L 100 12/22/23 04:00 98.9 F 106 H 23 123/67 90 L 40 12/22/23 03:00 94 27 H 115/61 93 L 12/22/23 02:00 99.3 F 94 25 H 127/70 90 L 12/22/23 01:43 90 12/22/23 01:32 93 90 12/22/23 01:00 109 H 25 H 135/67 91 L 12/22/23 00:01 94 27 H 135/67 93 L 12/22/23 00:00 112 H 27 H 126/70 94 L 90 12/21/23 23:00 100.0 F H 96 27 H 127/71 93 L 90 12/21/23 22:00 90 23 132/71 93 L 12/21/23 21:37 90 12/21/23 21:00 88 21 140/96 94 L 12/21/23 20:54 40 12/21/23 20:00 97.7 F 91 24 140/95 95 100 12/21/23 19:00 101 H 22 138/95 95 12/21/23 18:00 98.2 F 98 21 129/35 97 100 12/21/23 17:45 100 21 129/35 98 12/21/23 17:00 90 21 97/52 12/21/23 16:32 100 12/21/23 16:15 86 20 149/62 92 L 70 02/28/24 16:02 70 12/21/23 15:45 105 H 17 122/72 96 100 12/21/23 15:00 98 21 134/107 95 12/21/23 14:31 100 12/21/23 14:00 110 H 21 153/105 92 L 12/21/23 12:00 93 24 135/92 97 12/21/23 11:29 97 18 111/93 98 12/21/23 10:36 20 12/21/23 10:28 98.0 F 110 H 22 126/71 63 L Intake and Output 12/21/23 12/22/23 12/22/23 22:59 06:59 14:59 Intake Total 200 Output Total 1500 1445 50 Balance -1500 -1245 -50 Intake: Intake, IV Titration 200 Amount Ampicillin-Sulbactam 3 gm 200 In Sodium Chloride 0.9% 100 ml @ 200 mls/hr IVPB Q8HR [facility] Rx#:[id number] Output: Urine 1500 1445 50 Other: Voiding Method Indwelling Catheter Indwelling Catheter Weight 102.058 kg 117.8 kg Results 12/22/23 04:01 12/22/23 04:01 Cardiac Enzymes 12/21/23 12/21/23 Range/Units 10: 10: AST 23 (14-36) U/L Troponin I 0.022 (0.000-0.034) ng/mL Coagulation 12/21/23 Range/Units 10: PT 11.4 (10.0-12.5) sec APTT 23.7 (22.0-30.0) sec CBC 12/21/23 12/22/23 Range/Units 10:28 04:01 WBC 13.3 H 16.3 H (3.8-10.6) k/uL RBC 5.82 H 5.44 H (3.80-5.40) m/uL Hgb 14.2 13.6 (11.4-16.0) gm/dL Hct 49.1 H 47.5 H (34.0-46.0) % Plt Count 255 207 (150-450) k/uL Comprehensive Metabolic Panel 12/21/23 12/22/23 Range/Units 10:28 04:01 Sodium 142 143 (137-145) mmol/L Potassium 4.2 4.7 (3.5-5.1) mmol/L Chloride 103 102 (98-107) mmol/L Carbon Dioxide 36 H 35 H (22-30) mmol/L BUN 21 H 21 H (7-17) mg/dL Creatinine 0.54 0.62 (0.52-1.04) mg/dL Glucose 134 H 124 H (74-99) mg/dL Calcium 8.9 8.3 L (8.4-10.2) mg/dL AST 23 (14-36) U/L ALT 11 (4-34) U/L Alkaline Phosphatase 108 (38-126) U/L Total Protein 6.9 (6.3-8.2) g/dL Albumin 3.6 (3.5-5.0) g/dL Current Medications Generic Name Dose Route Start Last Admin Trade Name Freq PRN Reason Stop Dose Admin Albuterol/Ipratropium 3 ml 12/22/23 00:00 12/22/23 04:59 Ipratropium-Albuterol 3 Ml Neb INHALATION 3 ml RT-Q4H LUKASZ Administration Dextrose/Water 25 ml 12/21/23 20:49 Dextrose 50% Syringe 50 Ml IVP PER PROTOCOL PRN Hypoglycemia Protocol Dextrose/Water 50 ml 12/21/23 20:49 Dextrose 50% Syringe 50 Ml IVP PER PROTOCOL PRN Hypoglycemia Protocol Enoxaparin Sodium 40 mg 12/22/23 09:00 Enoxaparin 40 Mg/0.4 Ml Syringe SQ DAILY LUKASZ Furosemide 40 mg 12/22/23 00:00 12/22/23 07:45 Furosemide 10 Mg/Ml 4 Ml Vial IV 40 mg Q8HR LUKASZ Administration Ampicillin Sodium/Sulbactam 100 mls @ 200 mls/hr 12/22/23 00:00 12/21/23 23:36 Sodium 3 gm/ Sodium Chloride IVPB 200 mls/hr Q8HR LUKASZ Administration Protocol Insulin Aspart 0 unit 12/22/23 00:00 12/22/23 05:21 Insulin Aspart (Novolog) 100 Unit/Ml Vial SQ Not Given Q6H LUKASZ Protocol Methylprednisolone Sodium Succinate 60 mg 12/22/23 00:00 12/22/23 05:35 Methylprednisolone Sod Succi 125 Mg/2 Ml Vial IV 60 mg Q6HR [facility]UKAS[facility] Administration Miscellaneous Information 1 each 12/21/23 18:22 Potassium Replacement Protocol 1 Each Misc MISCELLANE DAILY PRN Per Protocol Miscellaneous Information 1 each 12/21/23 18:22 Magnesium Replacement Protocol 1 Each Mis MISCELLANE DAILY PRN Per Protocol Protocol Naloxone HCl 0.2 mg 12/21/23 14:32 Naloxone 0.4 Mg/Ml 1 Ml Vial IV Q2M PRN Opioid Reversal Nicotine 1 patch 12/21/23 20:45 12/21/23 21:22 Nicotine 21mg/24hr Patch TRANSDERM 1 patch DAILY LUKASZ Administration Pantoprazole Sodium 40 mg 12/22/23 09:00 12/22/23 07:48 Pantoprazole 40 Mg/10 Ml Vial IV 40 mg DAILY LUKASZ Administration Intake and Output 12/21/23 12/22/23 12/22/23 22:59 06:59 14:59 Intake Total 200 Output Total 1500 1445 50 Balance -1500 -1245 -50 Intake: Intake, IV Titration 200 Amount Ampicillin-Sulbactam 3 gm 200 In Sodium Chloride 0.9% 100 ml @ 200 mls/hr IVPB Q8HR [facility] Rx#:[id number] Output: Urine 1500 1445 50 Other: Voiding Method Indwelling Catheter Indwelling Catheter Weight 102.058 kg 117.8 kg 12/22/23 04:01 12/22/23 04:01
--- NOTE | 2023-12-22 08:42 | XR ---
EXAMINATION TYPE: XR chest 1V portable DATE OF EXAM: 12/22/2023 8:03 AM CLINICAL INDICATION:Female, 63 years old with history of on bipap, chf; [facility] COMPARISON: Chest radiographs from 12/13/2023 TECHNIQUE: XR chest 1V portable Frontal view of the chest. FINDINGS: Lungs/Pleura: No evidence of focal consolidation or pneumothorax. Blunting of the costophrenic angles is present. Pulmonary vascularity: Pulmonary vascular congestion. Heart/mediastinum: Cardiomediastinal silhouette is enlarged and stable. Musculoskeletal: No acute osseous pathology. Other findings: None IMPRESSION: Cardiomegaly, pulmonary vascular congestion and bilateral pleural effusions. Correlate with BNP for c ongestive heart failure.
[2023-12-22 09:21] LABS: ABG Base Excess 13.5 mmol/L; ABG HCO3 37 mmol/L (21-25); ABG Oxygen Saturation 92.3 % (94-97); ABG PCO2 51 mmHg (35-45); ABG PH 7.47 (7.35-7.45); ABG TCO2 39 mmol/L (19-24)
[2023-12-22 09:23] LABS: ABG PO2 56 mmHg (83-108); Allen Test Performed? y
--- NOTE | 2023-12-22 09:56 | P.PN ---
Subjective This is a pleasant 63 years of with past medical history of multiple medical problems Presents emergency room because of dyspnea, she received 1 dose of Ativan to help her get through the CAT scan. After the test patient becomes more encephalopathic and required more respiratory support and she was placed on BiPAP. Patient provided information. She follows simple commands. She has decreased breath sounds on both sides with scattered wheezing. No chest pain. Abdomen soft. Tachypneic but afebrile Labs showed mild leukocytosis of 13.3. Patient with rest of CBC is unremarkable, INR 1.1 BMP and liver function tests are unremarkable as well. pH is low 7.24 and elevated pCO2 of 81. proBNP is elevated to 190. Troponin -0.02 Influenza A and type B, RSV, SARS (coronavirus) are and detected On the preserved normal left ventricle ejection fraction of 50 to 55% but other than that it was of suboptimal study and right ventricle could not be visualized CTA of the chest showing no pulmonary embolism. Bilateral basal consolidation suspicious for infectious process. Also with evidence of CHF and cardiomegaly. With pulmonary hypertension. Patient was started on Unasyn, IV vancomycin and Solu-Medrol. 12/22/2023 Patient remains in the ICU in critical condition but improving Today his mentation improved significantly and she is awake alert but drowsy and is still mildly confused but she follows commands. She remains on BiPAP this morning with mild tachycardia and tachypnea, heart rate was 124 and a breathing rate 24. Her acidotic pH improved 7.48 and pCO2 back to reference range at 51. Repeat troponin this morning is -0.019. Chest x-ray showing cardiomegaly with CHF and pleural effusion. WBC 16.3 but patient is on steroids BMP is unremarkable Remains on Unasyn, IV Lasix 40 mg every 8 hours and Solu-Medrol 60 mg Review of systems CONSTITUTIONAL: No fever, no malaise, no fatigue. HEENT: No recent visual problems or hearing problems. Denied any sore throat. CARDIOVASCULAR: No orthopnea, PND, no palpitations, no syncope. GASTROINTESTINAL: No diarrhea, no nausea, no vomiting, no abdominal pain. Normoactive bowel sounds. MUSCULOSKELETAL/RHEUMATOLOGICAL: Denies any joint pain, swelling, or any muscle pain. ENDOCRINE: Denies any polyuria or polydipsia. Active Medications Generic Name Dose Route Start Last Admin Trade Name Freq PRN Reason Stop Dose Admin Albuterol/Ipratropium 3 ml 12/22/23 00:00 12/22/23 08:23 Ipratropium-Albuterol 3 Ml Neb INHALATION 3 ml RT-Q4H LUKASZ Administration Dextrose/Water 25 ml 12/21/23 20:49 Dextrose 50% Syringe 50 Ml IVP PER PROTOCOL PRN Hypoglycemia Protocol Dextrose/Water 50 ml 12/21/23 20:49 Dextrose 50% Syringe 50 Ml IVP PER PROTOCOL PRN Hypoglycemia Protocol Enoxaparin Sodium 40 mg 12/22/23 09:00 12/22/23 07:58 Enoxaparin 40 Mg/0.4 Ml Syringe SQ 40 mg DAILY LUKASZ Administration Furosemide 40 mg 12/22/23 00:00 12/22/23 07:45 Furosemide 10 Mg/Ml 4 Ml Vial IV 40 mg Q8HR LUKASZ Administration Ampicillin Sodium/Sulbactam 100 mls @ 200 mls/hr 12/22/23 00:00 12/22/23 07:58 Sodium 3 gm/ Sodium Chloride IVPB 200 mls/hr Q8HR LUKASZ Administration Protocol Insulin Aspart 0 unit 12/22/23 00:00 12/22/23 05:21 Insulin Aspart (Novolog) 100 Unit/Ml Vial SQ Not Given Q6H LUKASZ Protocol Methylprednisolone Sodium Succinate 60 mg 12/22/23 00:00 12/22/23 05:35 Methylprednisolone Sod Succi 125 Mg/2 Ml Vial IV 60 mg Q6HR LUKASZ Administration Miscellaneous Information 1 each 12/21/23 18:22 Potassium Replacement Protocol 1 Each Misc MISCELLANE DAILY PRN Per Protocol Miscellaneous Information 1 each 12/21/23 18:22 Magnesium Replacement Protocol 1 Each Misc MISCELLANE DAILY PRN Per Protocol Protocol Naloxone HCl 0.2 mg 12/21/23 14:32 Naloxone 0.4 Mg/Ml 1 Ml Vial IV Q2M PRN Opioid Reversal Nicotine 1 patch 12/21/23 20:45 12/22/23 07:59 Nicotine 21mg/24hr Patch TRANSDERM 1 patch DAILY LUKASZ Administration Pantoprazole Sodium 40 mg 12/22/23 09:00 12/22/23 07:48 Pantoprazole 40 Mg/10 Ml Vial IV 40 mg DAILY LUKASZ Administration Objective - Vital Signs Vital signs: Vital Signs Temp 99.3 F 12/22/23 08:00 Pulse 124 H 12/22/23 09:00 Resp 24 12/22/23 09:00 BP 126/74 12/22/23 09:00 Pulse Ox 87 L 12/22/23 09:00 FiO2 100 12/22/23 08:24 Intake & Output 12/21/23 12/22/23 12/22/23 18:59 06:59 18:59 Intake Total 200 110 Output Total 1200 1745 550 Balance -4990 -1545 -215 Weight 102.058 kg 117.8 kg Intake: IV 10 .9NS 10 Intake, IV Titration 200 100 Amount Ampicillin-Sulbactam 3 gm 200 100 In Sodium Chloride 0.9% 100 ml @ 200 mls/hr IVPB Q8HR [facility] Rx#:[id number] Output: Urine 1200 1745 550 Other: Voiding Method Indwelling Catheter - Exam -GENERAL: The patient is alert and oriented x3, not in any acute distress. Obese HEENT: Pupils are round and equally reacting to light. EOMI. No scleral icterus. No conjunctival pallor. Normocephalic, atraumatic. No pharyngeal erythema. No thyromegaly. CARDIOVASCULAR: S1 and S2 present. No murmurs, rubs, or gallops. -PULMONARY: Chest is clear to auscultation, bilateral scattered wheezing , no crackles. Decreased air entry on both sides ABDOMEN: Soft, nontender, nondistended, normoactive bowel sounds. No palpable o rganomegaly. MUSCULOSKELETAL: No joint swelling or deformity. EXTREMITIES: No cyanosis, clubbing, or pedal edema. NEUROLOGICAL: Gross neurological examination did not reveal any focal deficits. SKIN: No rashes. no petechiae. - Labs CBC & Chem 7: 12/22/23 04:01 12/22/23 04:01 Labs: Abnormal Lab Results - Last 24 Hours (Table) 12/21/23 12/21/23 12/21/23 Range/Units 10:28 10:28 10:28 WBC 13.3 H (3.8-10.6) k/uL RBC 5.82 H (3.80-5.40) m/uL Hct 49.1 H (34.0-46.0) % MCH 24.4 L (25.0-35.0) pg MCHC 28.9 L (31.0-37.0) g/dL RDW 16.3 H (11.5-15.5) % Neutrophils # 11.0 H (1.3-7.7) k/uL Lymphocytes # (1.0-4.8) k/uL D-Dimer 0.92 H (<0.60) mg/L FEU ABG pH (7.35-7.45) ABG pCO2 (35-45) mmHg ABG pO2 (83-108) mmHg ABG HCO3 (21-25) mmol/L ABG Total CO2 (19-24) mmol/L ABG O2 Saturation (94-97) % Carbon Dioxide 36 H (22-30) mmol/L BUN 21 H (7-17) mg/dL Glucose 134 H (74-99) mg/dL POC Glucose (mg/dL) (70-110) mg/dL Hemoglobin A1c (<=6.0) % Calcium (8.4-10.2) mg/dL 12/21/23 12/21/23 12/21/23 Range/Units 14:16 17:04 18:15 WBC (3.8-10.6) k/uL RBC (3.80-5.40) m/uL Hct (34.0-46.0) % MCH (25.0-35.0) pg MCHC (31.0-37.0) g/dL RDW (11.5-15.5) % Neutrophils # (1.3-7.7) k/uL Lymphocytes # (1.0-4.8) k/uL D-Dimer (<0.60) mg/L FEU ABG pH 7.24 L 7.28 L (7.35-7.45) ABG pCO2 88 H* 81 H* (35-45) mmHg ABG pO2 47 L* (83-108) mmHg ABG HCO3 38 H 38 H (21-25) mmol/L ABG Total CO2 41 H 41 H (19-24) mmol/L ABG O2 Saturation 77.4 L 97.1 H (94-97) % Carbon Dioxide (22-30) mmol/L BUN (7-17) mg/dL Glucose (74-99) mg/dL POC Glucose (mg/dL) 133 H (70-110) mg/dL Hemoglobin A1c (<=6.0) % Calcium (8.4-10.2) mg/dL 12/22/23 12/22/23 12/22/23 Range/Units 04:01 04:01 04:01 WBC 16.3 H (3.8-10.6) k/uL RBC 5.44 H (3.80-5.40) m/uL Hct 47.5 H (34.0-46.0) % MCH 24.9 L (25.0-35.0) pg MCHC 28.6 L (31.0-37.0) g/dL RDW 16.0 H (11.5-15.5) % Neutrophils # 15.3 H (1.3-7.7) k/uL Lymphocytes # 0.3 L (1.0-4.8) k/uL D-Dimer (<0.60) mg/L FEU ABG pH (7.35-7.45) ABG pCO2 (35-45) mmHg ABG pO2 (83-108) mmHg ABG HCO3 (21-25) mmol/L ABG Total CO2 (19-24) mmol/L ABG O2 Saturation (94-97) % Carbon Dioxide 35 H (22-30) mmol/L BUN 21 H (7-17) mg/dL Glucose 124 H (74-99) mg/dL POC Glucose (mg/dL) (70-110) mg/dL Hemoglobin A1c 6.7 H (<=6.0) % Calcium 8.3 L (8.4-10.2) mg/dL 12/22/23 12/22/23 Range/Units 05:12 09:18 WBC (3.8-10.6) k/uL RBC (3.80-5.40) m/uL Hct (34.0-46.0) % MCH (25.0-35.0) pg MCHC (31.0-37.0) g/dL RDW (11.5-15.5) % Neutrophils # (1.3-7.7) k/uL Lymphocytes # (1.0-4.8) k/uL D-Dimer (<0.60) mg/L FEU ABG pH 7.47 H (7.35-7.45) ABG pCO2 51 H (35-45) mmHg ABG pO2 56 L* (83-108) mmHg ABG HCO3 37 H (21-25) mmol/L ABG Total CO2 39 H (19-24) mmol/L ABG O2 Saturation 92.3 L (94-97) % Carbon Dioxide (22-30) mmol/L BUN (7-17) mg/dL Glucose (74-99) mg/dL POC Glucose (mg/dL) 131 H (70-110) mg/dL Hemoglobin A1c (<=6.0) % Calcium (8.4-10.2) mg/dL Assessment and Plan Assessment: Acute diastolic CHF with preserved ejection fraction Acute COPD exacerbation Bilateral basal pneumonia is suspected Obesity hypoventilation syndrome Pulmonary hypertension Metabolic encephalopathy Acute hypoxemic hypercapnic failure Morbid obesity with BMI of more than 40 Respiratory acidosis Plan: Continue with antibiotic, Unasyn Continue with IV Solu-Medrol Continue with Lasix IV Cardiology and pulmonary team consult Labs and medication were reviewed.. Continue same treatment. Continue with symptomatic treatment. Resume home medication. Monitor labs and vitals. DVT and GI prophylaxis. Further recommendations as per clinical course of the patient DVT prophylaxis: Subcutaneous heparin GI Prophylaxis: Ppi Prognosis is guarded
[2023-12-22 12:19] LABS: Glucose,Whole Blood 149 mg/dL (70-110)
--- NOTE | 2023-12-22 14:08 | P.PN ---
Subjective Progress Note Date: 12/22/23 This is a morbidly obese 63-year-old female patient with typical features of obstructive sleep apnea and obesity hypoventilation syndrome. The patient came in to the emergency department because of worsening shortness of breath. While undergoing a CAT scan of the chest, the patient also was given a dose of Ativan. Subsequently, the patient became obtunded, lethargic and sleepy. Blood gas showed hypercapnic respiratory failure probably a component of an acute on top of chronic hypercapnic respiratory failure with a pH of 7.24 with a pCO2 of 88 and pO2 of 47. Based on that, the patient was placed on a BiPAP at a pressure of 12 over 5 cm of water. Currently, the BiPAP is running and the patient is on FiO2 100% which is gradually being weaned off. Most recent blood gas showed a pH of 7.28 with a pCO2 of 81 and pO2 of 104. She is able to generate a tidal volume of 3 50-400. She underwent a CT angiogram of the chest that was suboptimal and there was no evidence of any central pulmonary embolism. There was anasarca with mild cardiomegaly and pulmonary arterial hypertension and mild component of CHF as the patient had upper lung septal lines being more prominent and thickened. The patient also had some atelectatic changes and early pneumonitis in the lower lobes bilaterally. Echocardiogram was again suboptimal due to her body habitus. The patient had a preserved LV function without any valvular abnormalities. Blood work shows chronic metabolic alkalosis with a serum bicarb of 36 and a sodium level of 142 and a potassium level of 4.2. WBC count of 13.3 with a hemoglobin 14.2 and a platelet count of 255. The viral panel has been negative. proBNP level is 2190. Troponins are 0.02. Smoking status is not known. On today's evaluation of 12/22/2023, the patient is being seen for a follow-up. The patient is more alert compared to yesterday. Overnight, the patient was kept on a BiPAP essentially on the same setting of 14 over 8 cm of water. FiO2 remains at 100% and the patient is not showing significant improvement in oxygenation. Nevertheless, neurologically she is more awake compared to yesterday. Follow-up blood gas was done And this was on the current BiPAP setting and it showed a pH of 7.47 with a pCO2 of 51 and a pO2 of 56 and there is improvement in the patient's hypercapnia. The patient is able to follow simple commands. She is able to communicate. The repeat chest x-ray from today was reviewed and there is cardiomegaly and pulm vascular congestion and small bilateral pleural effusion. The patient remains on diuretics and she is on Lasix 40 mg IV every 8 hours. Overall fluid balance is -2.7 L over the past 24 hours. Her white cell count today is at 16.3 with hemoglobin 15.6 and a platelet count of 207. Sodium is at 143, BUN is at 21 with a creatinine of 0.6 and a potassium level is at 4.7 and a serum bicarb is at 35. As mentioned, troponins are negative and the is at 0.02 and 0.01 respectively. The viral panel has been negative. She remains on bronchodilators. She remains on IV Solu-Medrol 60 mg every 6 hours and she is also on empiric antibiotic coverage with IV Unasyn. Objective - Vital Signs Vital signs: Vital Signs Temp 99.3 F 12/22/23 08:00 Pulse 100 12/22/23 08:37 Resp 20 12/22/23 08:37 BP 104/85 12/22/23 07:40 Pulse Ox 88 L 12/22/23 08:24 FiO2 100 12/22/23 08:24 Intake & Output 12/21/23 12/22/23 12/22/23 18:59 06:59 18:59 Intake Total 200 105 Output Total 1200 1745 400 Balance -1200 -1545 -295 Weight 102.058 kg 117.8 kg Intake: IV 5 .9NS 5 Intake, IV Titration 200 100 Amount Ampicillin-Sulbactam 3 gm 200 100 In Sodium Chloride 0.9% 100 ml @ 200 mls/hr IVPB Q8HR [facility] Rx#:[id number] Output: Urine 1200 1745 400 Other: Voiding Method Indwelling Catheter - Exam Morbidly obese with a BMI of 41.2, lethargic, sleepy and she is able to tolerate the BiPAP without having any major difficulties. The patient is currently on a BiPAP at a pressure of 14 over 8 cm of water with an FiO2 of 100% Head exam was generally normal. There was no scleral icterus or corneal arcus. Mucous membranes were moist. Neck was supple and without jugular venous distension, thyromegaly, or carotid bruits. Carotids were easily palpable bilaterally. There was no adenopathy. Carotid a posterior pharynx with a Mallampati class IV Lung sounds are diminished bilaterally along with prolongation of the expiratory phase of breathing as Per wheezes Heart sounds are distant, positive S1-S2, no significant murmurs could be appreciated. Abdomen is obese and nontender. Organs cannot be accurately felt. No direct tenderness. No rebound tenderness. No guarding. Extremities reveal +1 pitting edema and there is no cyanosis or clubbing. Examination of the skin revealed no evidence of significant rashes, suspicious appearing nevi or other concerning lesions. Neurologic exam reveals that the patient is arousable and more awake compared to yesterday and the patient continues to improve Pupils are equal reactive to light. No focal neurological deficits. She is following simple commands and moving all 4 extremities without any limitation - Labs CBC & Chem 7: 12/22/23 04:01 12/22/23 04:01 Labs: Abnormal Lab Results - Last 24 Hours (Table) 12/21/23 12/21/23 12/21/23 Range/Units 10:28 10:28 10:28 WBC 13.3 H (3.8-10.6) k/uL RBC 5.82 H (3.80-5.40) m/uL Hct 49.1 H (34.0-46.0) % MCH 24.4 L (25.0-35.0) pg MCHC 28.9 L (31.0-37.0) g/dL RDW 16.3 H (11.5-15.5) % Neutrophils # 11.0 H (1.3-7.7) k/uL Lymphocytes # (1.0-4.8) k/uL D-Dimer 0.92 H (<0.60) mg/L FEU ABG pH (7.35-7.45) ABG pCO2 (35-45) mmHg ABG pO2 (83-108) mmHg ABG HCO3 (21-25) mmol/L ABG Total CO2 (19-24) mmol/L ABG O2 Saturation (94-97) % Carbon Dioxide 36 H (22-30) mmol/L BUN 21 H (7-17) mg/dL Glucose 134 H (74-99) mg/dL POC Glucose (mg/dL) (70-110) mg/dL Hemoglobin A1c (<=6.0) % Calcium (8.4-10.2) mg/dL 12/21/23 12/21/23 12/21/23 Range/Units 14:16 17:04 18:15 WBC (3.8-10.6) k/uL RBC (3.80-5.40) m/uL Hct (34.0-46.0) % MCH (25.0-35.0) pg MCHC (31.0-37.0) g/dL RDW (11.5-15.5) % Neutrophils # (1.3-7.7) k/uL Lymphocytes # (1.0-4.8) k/uL D-Dimer (<0.60) mg/L FEU ABG pH 7.24 L 7.28 L (7.35-7.45) ABG pCO2 88 H* 81 H* (35-45) mmHg ABG pO2 47 L* (83-108) mmHg ABG HCO3 38 H 38 H (21-25) mmol/L ABG Total CO2 41 H 41 H (19-24) mmol/L ABG O2 Saturation 77.4 L 97.1 H (94-97) % Carbon Dioxide (22-30) mmol/L BUN (7-17) mg/dL Glucose (74-99) mg/dL POC Glucose (mg/dL) 133 H (70-110) mg/dL Hemoglobin A1c (<=6.0) % Calcium (8.4-10.2) mg/dL 12/22/23 12/22/23 12/22/23 Range/Units 04:01 04:01 04:01 WBC 16.3 H (3.8-10.6) k/uL RBC 5.44 H (3.80-5.40) m/uL Hct 47.5 H (34.0-46.0) % MCH 24.9 L (25.0-35.0) pg MCHC 28.6 L (31.0-37.0) g/dL RDW 16.0 H (11.5-15.5) % Neutrophils # 15.3 H (1.3-7.7) k/uL Lymphocytes # 0.3 L (1.0-4.8) k/uL D-Dimer (<0.60) mg/L FEU ABG pH (7.35-7.45) ABG pCO2 (35-45) mmHg ABG pO2 (83-108) mmHg ABG HCO3 (21-25) mmol/L ABG Total CO2 (19-24) mmol/L ABG O2 Saturation (94-97) % Carbon Dioxide 35 H (22-30) mmol/L BUN 21 H (7-17) mg/dL Glucose 124 H (74-99) mg/dL POC Glucose (mg/dL) (70-110) mg/dL Hemoglobin A1c 6.7 H (<=6.0) % Calcium 8.3 L (8.4-10.2) mg/dL 12/22/23 Range/Units 05:12 WBC (3.8-10.6) k/uL RBC (3.80-5.40) m/uL Hct (34.0-46.0) % MCH (25.0-35.0) pg MCHC (31.0-37.0) g/dL RDW (11.5-15.5) % Neutrophils # (1.3-7.7) k/uL Lymphocytes # (1.0-4.8) k/uL D-Dimer (<0.60) mg/L FEU ABG pH (7.35-7.45) ABG pCO2 (35-45) mmHg ABG pO2 (83-108) mmHg ABG HCO3 (21-25) mmol/L ABG Total CO2 (19-24) mmol/L ABG O2 Saturation (94-97) % Carbon Dioxide (22-30) mmol/L BUN (7-17) mg/dL Glucose (74-99) mg/dL POC Glucose (mg/dL) 131 H (70-110) mg/dL Hemoglobin A1c (<=6.0) % Calcium (8.4-10.2) mg/dL Assessment and Plan Plan: Acute on chronic hypercapnic and hypoxic respiratory failure, currently on a BiPAP pressure of 1 14/8 cm of water and FiO2 is being titrated. Blood gas was noted. CT of the chest was noted. The patient remains on FiO2 of 100%. The patient is still showing signs of hypoxemia on today's blood gas although the hypercapnia and acid-base status is improved on BiPAP therapy. She is also being treated with bronchodilators, steroids and diuretics. She is also on empiric antibiotic coverage with IV Unasyn suspecting bibasilar pneumonia. Morbid obesity with a BMI of 41.2 Obstructive sleep apnea along with a component of obesity hypoventilation syndrome, clinically suspected and the patient has chronic metabolic alkalosis suggestive of chronic hypercapnic respiratory failure COPD with prolongation of exhalation of breathing is Explained wheezes, currently on a combination of bronchodilators and steroids. CHF with preserved LV function and the patient is interstitial edema, pulmonary arterial hypertension with prominent pulmonary arteries on the CT of the chest and the patient is increased edema lower extremities. The proBNP level has been mildly elevated at 2190 CO2 narcosis with diminished level of consciousness secondary to above Smoker, 1 PPD Plan Continue BiPAP at the same setting, attempt to wean down FiO2 allowing the pulse ox as low as 88%. Continue DuoNeb nebulized treatments [id number] Continue diuresis with Lasix 40 mg IV every 8 hours and monitor the fluid balance Continue IV Solu-Medrol 60 mg every 6 hours Continue empiric antibiotic with Unasyn Will monitor mental status anticipate recovery of the patient's recovery from hypercapnic respiratory failure Will continue to follow up this patient closely in the intensive care unit. Avoid narcotics. Avoid benzodiazepines. Lovenox 40 mg subcu for DVT prophylaxis Neurologically more awake compared to yesterday. Will keep the patient n.p.o. for now as the patient is receiving continuous BiPAP therapy. Sliding scale insulin coverage Will keep the patient in the intensive care unit. Will continue to follow.
[2023-12-22] MEDS: MAGNESIUM SULFATE-D5W PMX 1 GM in DEXTROSE/WATER 1 100ML.BAG IVPB ONE (15:43)
[2023-12-22 17:55] LABS: Glucose,Whole Blood 154 mg/dL (70-110)
[2023-12-22] MEDS: DILTIAZEM 125 MG in SODIUM CHLORIDE 0.9% 100 ML IV SCH (18:32)
[2023-12-22] MEDS: DILTIAZEM DRIP BOLUS FROM BAG 1 MG SOLN IV STA (18:32)
[2023-12-22] MEDS: HEPARIN SOD,PORK IN 0.45% NACL 25,000 UNIT in 0.45% NACL 1 250ML.BAG IV SCH (18:39)
[2023-12-22] MEDS: HEPARIN SODIUM 1,000 UN/ML (10ML VL) IV ONE (18:43)
[2023-12-22 18:47] LABS: Anisocytosis Slight; Basophils % (A) 0 %; Eosinophils # (A) 0.1 k/uL (0-0.7); Eosinophils % (A) 0 %; HCT 47.7 % (34.0-46.0); HGB 13.7 gm/dL (11.4-16.0); Hypochromasia Marked; Lymphocytes # (A) 0.4 k/uL (1.0-4.8); Lymphocytes % (A) 2 %; MCH 24.4 pg (25.0-35.0); MCHC 28.8 g/dL (31.0-37.0); MCV 84.8 fL (80.0-100.0); Mean Platelet Volume 8.4; Monocytes # (A) 0.5 k/uL (0-1.0); Monocytes % (A) 3 %; Neutrophils # (A) 13.3 k/uL (1.3-7.7); Neutrophils % (A) 93 %; Platelet Count 208 k/uL (150-450); RBC 5.62 m/uL (3.80-5.40); RDW 16.2 % (11.5-15.5); WBC 14.3 k/uL (3.8-10.6)
[2023-12-22 19:44] LABS: INR 1.1 (<1.2); Partial Thromboplastin Time 23.9 sec (22.0-30.0); Prothrombin Time 12.1 sec (10.0-12.5)
[2023-12-22 23:17] LABS: Glucose,Whole Blood 170 mg/dL (70-110)
[2023-12-23] MEDS: HEPARIN SODIUM 1,000 UN/ML (10ML VL) IV PRN (01:37)
[2023-12-23 04:29] LABS: Anisocytosis Slight; Basophils % (A) 0 %; Eosinophils % (A) 0 %; HCT 44.7 % (34.0-46.0); Hypochromasia Marked; Lymphocytes # (A) 0.3 k/uL (1.0-4.8); Lymphocytes % (A) 2 %; MCH 24.4 pg (25.0-35.0); MCHC 29.1 g/dL (31.0-37.0); MCV 83.9 fL (80.0-100.0); Mean Platelet Volume 8.5; Monocytes # (A) 0.8 k/uL (0-1.0); Monocytes % (A) 6 %; Neutrophils # (A) 13.2 k/uL (1.3-7.7); Neutrophils % (A) 92 %; Platelet Count 180 k/uL (150-450); RBC 5.32 m/uL (3.80-5.40); RDW 16.4 % (11.5-15.5); WBC 14.4 k/uL (3.8-10.6)
[2023-12-23 04:37] LABS: African American GFR (CKD) >90 (>60 ml/min/1.73 sqM); Blood Urea Nitrogen 36 mg/dL (7-17); Calcium 8.2 mg/dL (8.4-10.2); Chloride 97 mmol/L (98-107); Glucose 164 mg/dL (74-99); Magnesium 2.1 mg/dL (1.6-2.3); Non-African American GFR(CKD) >90 (>60 ml/min/1.73 sqM); Potassium 3.9 mmol/L (3.5-5.1); Sodium 140 mmol/L (137-145)
[2023-12-23 04:38] LABS: INR 1.2 (<1.2); Partial Thromboplastin Time 51.3 sec (22.0-30.0); Prothrombin Time 12.5 sec (10.0-12.5)
[2023-12-23 05:16] LABS: Anion Gap 8 mmol/L; Carbon Dioxide 35 mmol/L (22-30)
[2023-12-23 05:28] LABS: Glucose,Whole Blood 162 mg/dL (70-110)
[2023-12-23] MEDS: POTASSIUM CHLORIDE ER 20 MEQ TAB.ER PO SCH (05:38)
--- NOTE | 2023-12-23 07:45 | P.PN ---
Subjective Progress Note Date: 12/23/23 Principal diagnosis: CHF This is a 63-year-old female patient with a past medical history significant for smoking and COPD and morbid obesity. No prior history of coronary artery disease or congestive heart failure or cardiac arrhythmia. She is also morbidly obese. The patient is currently in the intensive care unit. She is on BiPAP and she is extremely poor historian and lethargic. History was taken from the chart as well as from the nurse taking care of the patient. The patient presented to the hospital with a few weeks progressive shortness of breath associated with bilateral lower extremities edema. No cough and no sputum production. No fever and no chills. No indication of any chest pain or chest discomfort. She was hypoxic when she presented with oxygen saturation in the 60s. She was started on BiPAP and she was admitted to the intensive care unit. Currently she is hemodynamically stable. She underwent further workup including an EKG and that showed sinus mechanism with no significant ST or T wave abnormalities and chest x-ray showed pulmonary vascular congestions and pleural effusion. CT scan of the chest came in to be unremarkable for pulmonary embolism after D-dimer came in to be abnormal. Beside that her WBC was elevated. Renal function and electrolytes were within normal limits. No troponin was performed. In the morning she was noted to be in "atrial fibrillation". Reviewing the EKG showed only sinus mechanism with PACs. The echo revealed normal LV systolic function but the echo was technically very difficult. On examination she has distant heart sounds with regular rhythm and diminished breathing sounds bilaterally and bilateral lower extremities edema. Currently she is on Lasix IV. December 23, 2023 The patient was seen and evaluated this morning. She is on BiPAP at this point. She is hemodynamically stable. She went into atrial fibrillation/atrial flutter with overall controlled heart rate on the current dose of Cardizem IV. Beside that she is on heparin IV. She has been diuresing well on the current dose of Lasix IV. From the cardiovascular standpoint of view, we will continue the current medical regimen and continue heparin IV and consider switching the patient to oral anticoagulation down the line as well as start the patient on beta-silvia and try to wean her from Cardizem IV. The examination is remarkable for bilateral lower extremities edema with diminished breathing sounds bilaterally and irregular rhythm. Assessment Acute hypoxic respiratory failure likely secondary to COPD and CHF Heart failure exacerbation secondary to heart failure with a preserved ejection fraction Morbid obesity Cardiac arrhythmia with PACs at this point Atrial fibrillation which is new Multiple comorbid cond She has been diuresing well on the current dose of Lasix IV.itions Plan Continue the current dose of Lasix IV Continue monitoring the kidney function and electrolytes The echo was reviewed as described above Continue heparin IV and consider switching the patient to oral anticoagulation Start beta-silvia and try to wean the patient from Cardizem IV Follow-up with the patient Objective - Vital Signs Vital signs: Vital Signs Temp 98.6 F 12/23/23 00:00 Pulse 79 12/23/23 07:00 Resp 18 12/23/23 07:00 BP 132/68 12/23/23 07:00 Pulse Ox 88 L 12/23/23 07:00 FiO2 70 12/23/23 04:53 Intake & Output 12/22/23 12/23/23 12/23/23 18:59 06:59 18:59 Intake Total 255 322.833 Output Total 1210 975 Balance -195 -732.167 Weight 144.2 kg Intake: IV 55 165 .9NS 55 65 Ampicillin-Sulbactam 3 gm 100 In Sodium Chloride 0.9% 100 ml @ 200 mls/hr IVPB Q8HR [facility] Rx#:[id number] Intake, IV Titration 200 157.833 Amount Ampicillin-Sulbactam 3 gm 100 In Sodium Chloride 0.9% 100 ml @ 200 mls/hr IVPB Q8HR [facility] Rx#:[id number] Diltiazem 125 mg In 88 Sodium Chloride 0.9% 100 ml @ 10 MG/HR 10 mls/hr IV .[id number] [facility] Rx#: [id number] Heparin Sod,Pork in 0.45% 69.833 NaCl 25,000 unit In 0.45 % NaCl 1 250ml.bag @ 8.49 UNITS/KG/HR 10.001 mls/ hr IV .Q24H [facility] Rx#: [id number] Magnesium Sulfate-D5w Pmx 100 1 gm In Dextrose/Water 1 100ml.bag @ 100 mls/hr IVPB ONCE ONE Rx#: [id number] Output: Urine 1210 975 Other: Voiding Method Indwelling Catheter Indwelling Catheter - Labs CBC & Chem 7: 12/23/23 04:05 12/23/23 04:05 Labs: Abnormal Lab Results - Last 24 Hours (Table) 12/22/23 12/22/23 12/22/23 Range/Units 04:01 09:18 12:17 WBC (3.8-10.6) k/uL RBC (3.80-5.40) m/uL Hct (34.0-46.0) % MCH (25.0-35.0) pg MCHC (31.0-37.0) g/dL RDW (11.5-15.5) % Neutrophils # (1.3-7.7) k/uL Lymphocytes # (1.0-4.8) k/uL INR (<1.2) APTT (22.0-30.0) sec ABG pH 7.47 H (7.35-7.45) ABG pCO2 51 H (35-45) mmHg ABG pO2 56 L* (83-108) mmHg ABG HCO3 37 H (21-25) mmol/L ABG Total CO2 39 H (19-24) mmol/L ABG O2 Saturation 92.3 L (94-97) % Chloride (98-107) mmol/L Carbon Dioxide (22-30) mmol/L BUN (7-17) mg/dL Glucose (74-99) mg/dL POC Glucose (mg/dL) 149 H (70-110) mg/dL Hemoglobin A1c 6.7 H (<=6.0) % Calcium (8.4-10.2) mg/dL 12/22/23 12/22/23 12/22/23 Range/Units 17:53 18:22 23:16 WBC 14.3 H (3.8-10.6) k/uL RBC 5.62 H (3.80-5.40) m/uL Hct 47.7 H (34.0-46.0) % MCH 24.4 L (25.0-35.0) pg MCHC 28.8 L (31.0-37.0) g/dL RDW 16.2 H (11.5-15.5) % Neutrophils # 13.3 H (1.3-7.7) k/uL Lymphocytes # 0.4 L (1.0-4.8) k/uL INR (<1.2) APTT (22.0-30.0) sec ABG pH (7.35-7.45) ABG pCO2 (35-45) mmHg ABG pO2 (83-108) mmHg ABG HCO3 (21-25) mmol/L ABG Total CO2 (19-24) mmol/L ABG O2 Saturation (94-97) % Chloride (98-107) mmol/L Carbon Dioxide (22-30) mmol/L BUN (7-17) mg/dL Glucose (74-99) mg/dL POC Glucose (mg/dL) 154 H 170 H (70-110) mg/dL Hemoglobin A1c (<=6.0) % Calcium (8.4-10.2) mg/dL 12/23/23 12/23/23 12/23/23 Range/Units 04:05 04:05 04:05 WBC 14.4 H (3.8-10.6) k/uL RBC (3.80-5.40) m/uL Hct (34.0-46.0) % MCH 24.4 L (25.0-35.0) pg MCHC 29.1 L (31.0-37.0) g/dL RDW 16.4 H (11.5-15.5) % Neutrophils # 13.2 H (1.3-7.7) k/uL Lymphocytes # 0.3 L (1.0-4.8) k/uL INR 1.2 H (<1.2) APTT 51.3 H (22.0-30.0) sec ABG pH (7.35-7.45) ABG pCO2 (35-45) mmHg ABG pO2 (83-108) mmHg ABG HCO3 (21-25) mmol/L ABG Total CO2 (19-24) mmol/L ABG O2 Saturation (94-97) % Chloride 97 L (98-107) mmol/L Carbon Dioxide 35 H (22-30) mmol/L BUN 36 H (7-17) mg/dL Glucose 164 H (74-99) mg/dL POC Glucose (mg/dL) (70-110) mg/dL Hemoglobin A1c (<=6.0) % Calcium 8.2 L (8.4-10.2) mg/dL 12/23/23 Range/Units 05:27 WBC (3.8-10.6) k/uL RBC (3.80-5.40) m/uL Hct (34.0-46.0) % MCH (25.0-35.0) pg MCHC (31.0-37.0) g/dL RDW (11.5-15.5) % Neutrophils # (1.3-7.7) k/uL Lymphocytes # (1.0-4.8) k/uL INR (<1.2) APTT (22.0-30.0) sec ABG pH (7.35-7.45) ABG pCO2 (35-45) mmHg ABG pO2 (83-108) mmHg ABG HCO3 (21-25) mmol/L ABG Total CO2 (19-24) mmol/L ABG O2 Saturation (94-97) % Chloride (98-107) mmol/L Carbon Dioxide (22-30) mmol/L BUN (7-17) mg/dL Glucose (74-99) mg/dL POC Glucose (mg/dL) 162 H (70-110) mg/dL Hemoglobin A1c (<=6.0) % Calcium (8.4-10.2) mg/dL
[2023-12-23] MEDS: METOPROLOL TARTRATE 25 MG TAB PO SCH (08:50)
--- NOTE | 2023-12-23 08:51 | XR ---
EXAMINATION TYPE: XR chest 1V portable DATE OF EXAM: 12/23/2023 4:25 AM CLINICAL INDICATION:Female, 63 years old with history of assess lungs; [facility] COMPARISON: Chest radiographs from 12/22/2023 TECHNIQUE: XR chest 1V portable Frontal view of the chest. FINDINGS: Lungs/Pleura: There is no evidence of pleural effusion, focal consolidation, or pneumothorax. Pulmonary vascularity: Pulmonary vascular congestion. Heart/mediastinum: Cardiomediastinal silhouette is enlarged and stable. Musculoskeletal: No acute osseous pathology. Other findings: None IMPRESSION: Cardiomegaly and mild pulmonary vascular congestion. Correlate with BNP for congestive heart failure.
--- NOTE | 2023-12-23 14:30 | P.PN ---
Subjective Progress Note Date: 12/23/23 This is a morbidly obese 63-year-old female patient with typical features of obstructive sleep apnea and obesity hypoventilation syndrome. The patient came in to the emergency department because of worsening shortness of breath. While undergoing a CAT scan of the chest, the patient also was given a dose of Ativan. Subsequently, the patient became obtunded, lethargic and sleepy. Blood gas showed hypercapnic respiratory failure probably a component of an acute on top of chronic hypercapnic respiratory failure with a pH of 7.24 with a pCO2 of 88 and pO2 of 47. Based on that, the patient was placed on a BiPAP at a pressure of 12 over 5 cm of water. Currently, the BiPAP is running and the patient is on FiO2 100% which is gradually being weaned off. Most recent blood gas showed a pH of 7.28 with a pCO2 of 81 and pO2 of 104. She is able to generate a tidal volume of 3 50-400. She underwent a CT angiogram of the chest that was suboptimal and there was no evidence of any central pulmonary embolism. There was anasarca with mild cardiomegaly and pulmonary arterial hypertension and mild component of CHF as the patient had upper lung septal lines being more prominent and thickened. The patient also had some atelectatic changes and early pneumonitis in the lower lobes bilaterally. Echocardiogram was again suboptimal due to her body habitus. The patient had a preserved LV function without any valvular abnormalities. Blood work shows chronic metabolic alkalosis with a serum bicarb of 36 and a sodium level of 142 and a potassium level of 4.2. WBC count of 13.3 with a hemoglobin 14.2 and a platelet count of 255. The viral panel has been negative. proBNP level is 2190. Troponins are 0.02. Smoking status is not known. On today's evaluation of 12/22/2023, the patient is being seen for a follow-up. The patient is more alert compared to yesterday. Overnight, the patient was kept on a BiPAP essentially on the same setting of 14 over 8 cm of water. FiO2 remains at 100% and the patient is not showing significant improvement in oxygenation. Nevertheless, neurologically she is more awake compared to yesterday. Follow-up blood gas was done And this was on the current BiPAP setting and it showed a pH of 7.47 with a pCO2 of 51 and a pO2 of 56 and there is improvement in the patient's hypercapnia. The patient is able to follow simple commands. She is able to communicate. The repeat chest x-ray from today was reviewed and there is cardiomegaly and pulm vascular congestion and small bilateral pleural effusion. The patient remains on diuretics and she is on Lasix 40 mg IV every 8 hours. Overall fluid balance is -2.7 L over the past 24 hours. Her white cell count today is at 16.3 with hemoglobin 15.6 and a platelet count of 207. Sodium is at 143, BUN is at 21 with a creatinine of 0.6 and a potassium level is at 4.7 and a serum bicarb is at 35. As mentioned, troponins are negative and the is at 0.02 and 0.01 respectively. The viral panel has been negative. She remains on bronchodilators. She remains on IV Solu-Medrol 60 mg every 6 hours and she is also on empiric antibiotic coverage with IV Unasyn. On today's evaluation of 12/23/2023, I am seeing the patient for a follow-up. The patient is awake and alert and communicating at this point in time. Note that she was in hypercapnic respiratory failure and initially the patient was treated with a BiPAP at a pressure of 14 over 8 cm of water and subsequently the patient was transitioned to high flow oxygen at 15 L/min nasal cannula. Her current pulse ox is around 87 to 88%. She remains on diuretics and the patient remains in negative fluid balance of 2.7 L over the past 24 hours. She remains also on bronchodilators and steroids. She seems to be less bronchospastic and wheezy. She is arousable and she is communicating at this point in time. Note that the patient also had an episode of A-fib RVR at around 5 PM yesterday afternoon. The patient was started on Cardizem and the patient is currently on metoprolol for rate control and the dose of 25 mg p.o. twice a day. The patient was also started on IV heparin. The patient remains on IV Unasyn. WBC count is 14.5 with hemoglobin 13 and a platelet count of 180. BUN is 36 with a creatinine of 0.69 and his sodium levels at 140. Procalcitonin level was at 0.06, essentially nonelevated. Echocardiogram that was limited showed a preserved LV function. No signs of any hypercapnic respiratory failure. She is awake and alert and c ommunicating at this point in time. Objective - Vital Signs Vital signs: Vital Signs Temp 98 F 12/23/23 12:00 Pulse 106 H 12/23/23 13:08 Resp 16 12/23/23 13:00 BP 117/84 12/23/23 13:00 Pulse Ox 88 L 12/23/23 13:00 FiO2 70 12/23/23 10:00 Intake & Output 12/22/23 12/23/23 12/23/23 18:59 06:59 18:59 Intake Total 255 322.833 746.334 Output Total 1210 975 430 Balance -955 -652.167 316.334 Weight 144.2 kg Intake: IV 55 165 185 .9NS 55 65 85 Ampicillin-Sulbactam 3 gm 100 100 In Sodium Chloride 0.9% 100 ml @ 200 mls/hr IVPB Q8HR [facility] Rx#:[id number] Intake, IV Titration 200 157.833 61.334 Amount Ampicillin-Sulbactam 3 gm 100 In Sodium Chloride 0.9% 100 ml @ 200 mls/hr IVPB Q8HR [facility] Rx#:[id number] Diltiazem 125 mg In 88 61.334 Sodium Chloride 0.9% 100 ml @ 10 MG/HR 10 mls/hr IV .[id number] [facility] Rx#: [id number] Heparin Sod,Pork in 0.45% 69.833 NaCl 25,000 unit In 0.45 % NaCl 1 250ml.bag @ 8.49 UNITS/KG/HR 10.001 mls/ hr IV .Q24H [facility] Rx#: [id number] Magnesium Sulfate-D5w Pmx 100 1 gm In Dextrose/Water 1 100ml.bag @ 100 mls/hr IVPB ONCE ONE Rx#: [id number] Oral 500 Output: Urine 1210 975 430 Other: Voiding Method Indwelling Catheter Indwelling Catheter Indwelling Catheter - Exam Morbidly obese with a BMI of 41.2, awake and alert and communicating on 15 L of oxygen by nasal cannula Head exam was generally normal. There was no scleral icterus or corneal arcus. Mucous membranes were moist. Neck was supple and without jugular venous distension, thyromegaly, or carotid bruits. Carotids were easily palpable bilaterally. There was no adenopathy. Carotid a posterior pharynx with a Mallampati class IV Lung sounds are diminished bilaterally along with prolongation of the expiratory phase of breathing as Per wheezes Heart sounds are distant, positive S1-S2, no significant murmurs could be appreciated. Abdomen is obese and nontender. Organs cannot be accurately felt. No direct tenderness. No rebound tenderness. No guarding. Extremities reveal +1 pitting edema and there is no cyanosis or clubbing. Examination of the skin revealed no evidence of significant rashes, suspicious appearing nevi or other concerning lesions. Neurologic exam reveals that the patient is arousable and more awake compared to yesterday and the patient continues to improve Pupils are equal reactive to light. No focal neurological deficits. Awake and alert and communicating and the patient is alert and awake x 3 - Labs CBC & Chem 7: 12/23/23 04:05 12/23/23 04:05 Labs: Abnormal Lab Results - Last 24 Hours (Table) 12/22/23 12/22/23 12/22/23 Range/Units 17:53 18:22 23:16 WBC 14.3 H (3.8-10.6) k/uL RBC 5.62 H (3.80-5.40) m/uL Hct 47.7 H (34.0-46.0) % MCH 24.4 L (25.0-35.0) pg MCHC 28.8 L (31.0-37.0) g/dL RDW 16.2 H (11.5-15.5) % Neutrophils # 13.3 H (1.3-7.7) k/uL Lymphocytes # 0.4 L (1.0-4.8) k/uL INR (<1.2) APTT (22.0-30.0) sec Chloride (98-107) mmol/L Carbon Dioxide (22-30) mmol/L BUN (7-17) mg/dL Glucose (74-99) mg/dL POC Glucose (mg/dL) 154 H 170 H (70-110) mg/dL Calcium (8.4-10.2) mg/dL 12/23/23 12/23/23 12/23/23 Range/Units 04:05 04:05 04:05 WBC 14.4 H (3.8-10.6) k/uL RBC (3.80-5.40) m/uL Hct (34.0-46.0) % MCH 24.4 L (25.0-35.0) pg MCHC 29.1 L (31.0-37.0) g/dL RDW 16.4 H (11.5-15.5) % Neutrophils # 13.2 H (1.3-7.7) k/uL Lymphocytes # 0.3 L (1.0-4.8) k/uL INR 1.2 H (<1.2) APTT 51.3 H (22.0-30.0) sec Chloride 97 L (98-107) mmol/L Carbon Dioxide 35 H (22-30) mmol/L BUN 36 H (7-17) mg/dL Glucose 164 H (74-99) mg/dL POC Glucose (mg/dL) (70-110) mg/dL Calcium 8.2 L (8.4-10.2) mg/dL 12/23/23 Range/Units 05:27 WBC (3.8-10.6) k/uL RBC (3.80-5.40) m/uL Hct (34.0-46.0) % MCH (25.0-35.0) pg MCHC (31.0-37.0) g/dL RDW (11.5-15.5) % Neutrophils # (1.3-7.7) k/uL Lymphocytes # (1.0-4.8) k/uL INR (<1.2) APTT (22.0-30.0) sec Chloride (98-107) mmol/L Carbon Dioxide (22-30) mmol/L BUN (7-17) mg/dL Glucose (74-99) mg/dL POC Glucose (mg/dL) 162 H (70-110) mg/dL Calcium (8.4-10.2) mg/dL Assessment and Plan Plan: Acute on chronic hypercapnic and hypoxic respiratory failure, currently off BiPAP and the patient has been transitioned to 15 L of oxygen by nasal cannula. Respiratory failure is multifactorial. The patient has chronic hypercapnic and hypoxic jaylon failure due to COPD/obesity hypoventilation syndrome and obstructive sleep apnea. Obstructive sleep apnea has not been officially diagnosed on this patient. Nevertheless, she has atypical features. She was supported with BiPAP and the patient is currently on 15 L nasal cannula. She was treated with a combination of bronchodilators and steroids and antibiotic and the patient is also on Lasix as the patient has obvious signs of fluid overload. Morbid obesity with a BMI of 41.2 Obstructive sleep apnea along with a component of obesity hypoventilation syndrome, clinically suspected and the patient has chronic metabolic alkalosis suggestive of chronic hypercapnic respiratory failure COPD with prolongation of exhalation of breathing is Explained wheezes, currently on a combination of bronchodilators and steroids. CHF with preserved LV function and the patient is interstitial edema, pulmonary arterial hypertension with prominent pulmonary arteries on the CT of the chest and the patient is increased edema lower extremities. The proBNP level has been mildly elevated at 2190 CO2 narcosis with diminished level of consciousness secondary to above Smoker, 1 PPD New onset A-fib with RVR, rate is controlled and the patient is currently on metoprolol off Cardizem drip and the patient is also on IV heparin. Plan Continue oxygen and high flow at 15 L/min nasal cannula. May utilize Airvo if needed. Continue DuoNeb nebulized treatments [id number] Continue diuresis with Lasix 40 mg IV every 8 hours and monitor the fluid balance, the patient remains in negative fluid balance. Continue IV Solu-Medrol 60 mg every 6 hours Continue empiric antibiotic with Unasyn Management of atrial fibrillation per cardiology. The patient is currently on metoprolol and IV heparin. She would likely be transition to Eliquis within the next 24 to 48 hours, will wean off the Cardizem drip and discontinue Labs were noted Echo was noted Neurologically more awake compared to yesterday. Sliding scale insulin coverage Smoking cessation counseling Will keep the patient in the intensive care unit. Will continue to follow.
[2023-12-23 17:57] LABS: Glucose,Whole Blood 204 mg/dL (70-110)
[2023-12-23] MEDS: CHLORHEXIDINE GLUCONATE 15 ML CUP MUCOUS MEM SCH (18:02)
--- NOTE | 2023-12-23 21:20 | P.PN ---
Subjective This is a pleasant 63 years of with past medical history of multiple medical problems Presents emergency room because of dyspnea, she received 1 dose of Ativan to help her get through the CAT scan. After the test patient becomes more encephalopathic and required more respiratory support and she was placed on BiPAP. Patient provided information. She follows simple commands. She has decreased breath sounds on both sides with scattered wheezing. No chest pain. Abdomen soft. Tachypneic but afebrile Labs showed mild leukocytosis of 13.3. Patient with rest of CBC is unremarkable, INR 1.1 BMP and liver function tests are unremarkable as well. pH is low 7.24 and elevated pCO2 of 81. proBNP is elevated to 190. Troponin -0.02 Influenza A and type B, RSV, SARS (coronavirus) are and detected On the preserved normal left ventricle ejection fraction of 50 to 55% but other than that it was of suboptimal study and right ventricle could not be visualized CTA of the chest showing no pulmonary embolism. Bilateral basal consolidation suspicious for infectious process. Also with evidence of CHF and cardiomegaly. With pulmonary hypertension. Patient was started on Unasyn, IV vancomycin and Solu-Medrol. 12/22/2023 Patient remains in the ICU in critical condition but improving Today his mentation improved significantly and she is awake alert but drowsy and is still mildly confused but she follows commands. She remains on BiPAP this morning with mild tachycardia and tachypnea, heart rate was 124 and a breathing rate 24. Her acidotic pH improved 7.48 and pCO2 back to reference range at 51. Repeat troponin this morning is -0.019. Chest x-ray showing cardiomegaly with CHF and pleural effusion. WBC 16.3 but patient is on steroids BMP is unremarkable Remains on Unasyn, IV Lasix 40 mg every 8 hours and Solu-Medrol 60 mg She is still on BiPAP machine 40/8 with FiO2 of 70% Patient is getting more awake she follows commands. She denies chest pain. She developed atrial fibrillation, which is a new onset. Monitor showing atrial flutter with a 3-1 block Patient currently on Cardizem drip at 10 mg and heparin drip Patient eventually oxygen saturation improved and she switched to 15 L/min via high flow nasal cannula and patient was transferred out of the ICU to the third floor at [facility] Patient remains on IV Solu-Medrol and IV Lasix and Unasyn Review of systems CONSTITUTIONAL: No fever, no malaise, no fatigue. HEENT: No recent visual problems or hearing problems. Denied any sore throat. CARDIOVASCULAR: No orthopnea, PND, no palpitations, no syncope. GASTROINTESTINAL: No diarrhea, no nausea, no vomiting, no abdominal pain. Normoactive bowel sounds. MUSCULOSKELETAL/RHEUMATOLOGICAL: Denies any joint pain, swelling, or any muscle pain. ENDOCRINE: Denies any polyuria or polydipsia. Active Medications Generic Name Dose Route Start Last Admin Trade Name Rahulq PRN Reason Stop Dose Admin Albuterol/Ipratropium 3 ml 12/22/23 00:00 12/23/23 16:16 Ipratropium-Albuterol 3 Ml Neb INHALATION 3 ml RT-Q4H [facility] Administration Dextrose/Water 25 ml 12/21/23 20:49 Dextrose 50% Syringe 50 Ml IVP PER PROTOCOL PRN Hypoglycemia Protocol Dextrose/Water 50 ml 12/21/23 20:49 Dextrose 50% Syringe 50 Ml IVP PER PROTOCOL PRN Hypoglycemia Protocol Furosemide 40 mg 12/22/23 00:00 12/23/23 15:44 Furosemide 10 Mg/Ml 4 Ml Vial IV 40 mg Q8HR [facility] Administration Heparin Sodium (Porcine) 0 unit 12/22/23 17:56 12/23/23 01:37 Heparin Sodium 1,000 Un/Ml (10ml Vl) IV 4,000 unit PER PROTOCOL PRN Administration Low PTT Protocol Ampicillin Sodium/Sulbactam 100 mls @ 200 mls/hr 12/22/23 00:00 12/23/23 15:44 Sodium 3 gm/ Sodium Chloride IVPB 200 mls/hr Q8HR [facility] Administration Protocol Heparin Sodium/Sodium Chloride 250 mls @ 10.001 mls/hr 12/22/23 18:00 12/23/23 16:38 25,000 unit/ Sodium Chloride IV 11.49 units/kg/hr .Q24H [facility] 13.535 mls/hr Administration Protocol 8.49 UNITS/KG/HR Diltiazem HCl 125 mg/ Sodium 125 mls @ 10 mls/hr 12/22/23 18:15 12/23/23 09:50 Chloride IV 0 mg/hr .[id number] [facility] 0 mls/hr Infusion 10 MG/HR Insulin Aspart 0 unit 12/22/23 00:00 12/23/23 17:59 Insulin Aspart (Novolog) 100 Unit/Ml Vial SQ 4 unit Q6H [facility] Administration Protocol Methylprednisolone Sodium Succinate 60 mg 12/22/23 00:00 12/23/23 17:55 Methylprednisolone Sod Succi 125 Mg/2 Ml Vial IV 60 mg Q6HR [facility] Administration Metoprolol Tartrate 25 mg 12/23/23 09:00 12/23/23 20:10 Metoprolol Tartrate 25 Mg Tab PO 25 mg BID [facility] Administration Miscellaneous Information 1 each 12/21/23 18:22 Potassium Replacement Protocol 1 Each Misc MISCELLANE DAILY PRN Per Protocol Miscellaneous Information 1 each 12/21/23 18:22 Magnesium Replacement Protocol 1 Each Misc MISCELLANE DAILY PRN Per Protocol Protocol Naloxone HCl 0.2 mg 12/21/23 14:32 Naloxone 0.4 Mg/Ml 1 Ml Vial IV Q2M PRN Opioid Reversal Nicotine 1 patch 12/21/23 20:45 12/23/23 08:49 Nicotine 21mg/24hr Patch TRANSDERM 1 patch DAILY [facility] Administration Pantoprazole Sodium 40 mg 12/22/23 09:00 12/23/23 08:49 Pantoprazole 40 Mg/10 Ml Vial IV 40 mg DAILY [facility] Administration Objective - Vital Signs Vital signs: Vital Signs Temp 98.1 F 12/23/23 16:00 Pulse 67 12/23/23 20:00 Resp 20 12/23/23 20:00 BP 117/77 12/23/23 20:00 Pulse Ox 89 L 12/23/23 20:00 FiO2 70 12/23/23 10:00 Intake & Output 12/23/23 12/23/23 12/24/23 06:59 18:59 06:59 Intake Total 377.354 1531.501 Output Total 975 780 Balance -652.167 246.501 Weight 144.2 kg Intake: IV 165 285 .9NS 65 185 Ampicillin-Sulbactam 3 gm 100 100 In Sodium Chloride 0.9% 100 ml @ 200 mls/hr IVPB Q8HR [facility] Rx#:[id number] Intake, IV Titration 157.833 241.501 Amount Diltiazem 125 mg In 88 61.334 Sodium Chloride 0.9% 100 ml @ 10 MG/HR 10 mls/hr IV .[id number] [facility] Rx#: [id number] Heparin Sod,Pork in 0.45% 69.833 180.167 NaCl 25,000 unit In 0.45 % NaCl 1 250ml.bag @ 8.49 UNITS/KG/HR 10.001 mls/ hr IV .Q24H [facility] Rx#: [id number] Oral 500 Output: Urine 975 780 Other: Voiding Method Indwelling Catheter Indwelling Catheter Indwelling Catheter - Exam -GENERAL: The patient is alert and oriented x3, not in any acute distress. Obese HEENT: Pupils are round and equally reacting to light. EOMI. No scleral icterus. No conjunctival pallor. Normocephalic, atraumatic. No pharyngeal erythema. No thyromegaly. CARDIOVASCULAR: S1 and S2 present. No murmurs, rubs, or gallops. -PULMONARY: Chest is clear to auscultation, bilateral scattered wheezing , no crackles. Decreased air entry on both sides ABDOMEN: Soft, nontender, nondistended, normoactive bowel sounds. No palpable organomegaly. MUSCULOSKELETAL: No joint swelling or deformity. EXTREMITIES: No cyanosis, clubbing, or pedal edema. NEUROLOGICAL: Gross neurological examination did not reveal any focal deficits. SKIN: No rashes. no petechiae. - Labs CBC & Chem 7: 12/23/23 04:05 12/23/23 04:05 Labs: Abnormal Lab Results - Last 24 Hours (Table) 12/22/23 12/23/23 12/23/23 Range/Units 23:16 04:05 04:05 WBC 14.4 H (3.8-10.6) k/uL MCH 24.4 L (25.0-35.0) pg MCHC 29.1 L (31.0-37.0) g/dL RDW 16.4 H (11.5-15.5) % Neutrophils # 13.2 H (1.3-7.7) k/uL Lymphocytes # 0.3 L (1.0-4.8) k/uL INR (<1.2) APTT (22.0-30.0) sec Chloride 97 L (98-107) mmol/L Carbon Dioxide 35 H (22-30) mmol/L BUN 36 H (7-17) mg/dL Glucose 164 H (74-99) mg/dL POC Glucose (mg/dL) 170 H (70-110) mg/dL Calcium 8.2 L (8.4-10.2) mg/dL 12/23/23 12/23/23 12/23/23 Range/Units 04:05 05:27 17:56 WBC (3.8-10.6) k/uL MCH (25.0-35.0) pg MCHC (31.0-37.0) g/dL RDW (11.5-15.5) % Neutrophils # (1.3-7.7) k/uL Lymphocytes # (1.0-4.8) k/uL INR 1.2 H (<1.2) APTT 51.3 H (22.0-30.0) sec Chloride (98-107) mmol/L Carbon Dioxide (22-30) mmol/L BUN (7-17) mg/dL Glucose (74-99) mg/dL POC Glucose (mg/dL) 162 H 204 H (70-110) mg/dL Calcium (8.4-10.2) mg/dL Assessment and Plan Assessment: Acute diastolic CHF with preserved ejection fraction Atrial fibrillation/Flutter, new onset Acute COPD exacerbation Bilateral basal pneumonia is suspected Obesity hypoventilation syndrome Pulmonary hypertension Metabolic encephalopathy Acute hypoxemic hypercapnic failure Morbid obesity with BMI of more than 40 Respiratory acidosis Plan: continue with Cardizem, anticoagulation heparin and switch to oral when appropriate Continue with antibiotic, Unasyn Continue with IV Solu-Medrol Continue with Lasix IV Cardiology and pulmonary team consult Labs and medication were reviewed.. Continue same treatment. Continue with symptomatic treatment. Resume home medication. Monitor labs and vitals. DVT and GI prophylaxis. Further recommendations as per clinical course of the patient DVT prophylaxis: Subcutaneous heparin GI Prophylaxis: Ppi Prognosis is guarded
[2023-12-23 23:28] LABS: Glucose,Whole Blood 183 mg/dL (70-110)
[2023-12-24 05:34] LABS: Anisocytosis Slight; Basophils % (A) 0 %; Eosinophils # (A) 0.1 k/uL (0-0.7); Eosinophils % (A) 1 %; HCT 45.9 % (34.0-46.0); HGB 13.2 gm/dL (11.4-16.0); Hypochromasia Marked; Lymphocytes # (A) 0.3 k/uL (1.0-4.8); Lymphocytes % (A) 2 %; MCH 24.1 pg (25.0-35.0); MCHC 28.7 g/dL (31.0-37.0); MCV 83.8 fL (80.0-100.0); Mean Platelet Volume 8.7; Monocytes # (A) 0.8 k/uL (0-1.0); Monocytes % (A) 5 %; Neutrophils # (A) 15.5 k/uL (1.3-7.7); Neutrophils % (A) 92 %; Platelet Count 152 k/uL (150-450); RBC 5.48 m/uL (3.80-5.40); RDW 16.2 % (11.5-15.5); WBC 16.9 k/uL (3.8-10.6)
[2023-12-24 06:02] LABS: Glucose,Whole Blood 156 mg/dL (70-110)
--- NOTE | 2023-12-24 09:44 | P.PN ---
Subjective Progress Note Date: 12/24/23 Principal diagnosis: CHF This is a 63-year-old female patient with a past medical history significant for smoking and COPD and morbid obesity. No prior history of coronary artery disease or congestive heart failure or cardiac arrhythmia. She is also morbidly obese. The patient is currently in the intensive care unit. She is on BiPAP and she is extremely poor historian and lethargic. History was taken from the chart as well as from the nurse taking care of the patient. The patient presented to the hospital with a few weeks progressive shortness of breath associated with bilateral lower extremities edema. No cough and no sputum production. No fever and no chills. No indication of any chest pain or chest discomfort. She was hypoxic when she presented with oxygen saturation in the 60s. She was started on BiPAP and she was admitted to the intensive care unit. Currently she is hemodynamically stable. She underwent further workup including an EKG and that showed sinus mechanism with no significant ST or T wave abnormalities and chest x-ray showed pulmonary vascular congestions and pleural effusion. CT scan of the chest came in to be unremarkable for pulmonary embolism after D-dimer came in to be abnormal. Beside that her WBC was elevated. Renal function and electrolytes were within normal limits. No troponin was performed. In the morning she was noted to be in "atrial fibrillation". Reviewing the EKG showed only sinus mechanism with PACs. The echo revealed normal LV systolic function but the echo was technically very difficult. On examination she has distant heart sounds with regular rhythm and diminished breathing sounds bilaterally and bilateral lower extremities edema. Currently she is on Lasix IV. December 23, 2023 The patient was seen and evaluated this morning. She is on BiPAP at this point. She is hemodynamically stable. She went into atrial fibrillation/atrial flutter with overall controlled heart rate on the current dose of Cardizem IV. Beside that she is on heparin IV. She has been diuresing well on the current dose of Lasix IV. From the cardiovascular standpoint of view, we will continue the current medical regimen and continue heparin IV and consider switching the patient to oral anticoagulation down the line as well as start the patient on beta-silvia and try to wean her from Cardizem IV. The examination is remarkable for bilateral lower extremities edema with diminished breathing sounds bilaterally and irregular rhythm. December 24, 2023 The patient was seen and evaluated this morning. She continues to be hypoxic requiring high flow oxygen. She continues to be in failure in addition to COPD exacerbation. She is in sinus mechanism. The echo showed normal LV systolic function with examination showed distant heart sounds with diminished breathing sounds bilaterally and bilateral lower extremities edema Assessment Acute hypoxic respiratory failure likely secondary to COPD and CHF Heart failure exacerbation secondary to heart failure with a preserved ejection fraction Morbid obesity Cardiac arrhythmia with PACs at this point Atrial fibrillation which is new Multiple comorbid cond She has been diuresing well on the current dose of Lasix IV.itions Plan Continue the current dose of Lasix IV Continue monitoring the kidney function and electrolytes The echo was reviewed as described above DC heparin and switch the patient to oral anticoagulation Objective - Vital Signs Vital signs: Vital Signs Temp 97.9 F 12/24/23 08:15 Pulse 58 L 12/24/23 08:15 Resp 20 12/24/23 08:15 BP 148/84 12/24/23 08:15 Pulse Ox 91 L 12/24/23 08:15 FiO2 70 12/24/23 02:37 Intake & Output 12/23/23 12/24/23 12/24/23 18:59 06:59 18:59 Intake Total 1026.501 719.339 Output Total 780 1600 Balance 246.501 -880.661 Weight 140 kg Intake: IV 285 .9NS 185 Ampicillin-Sulbactam 3 gm 100 In Sodium Chloride 0.9% 100 ml @ 200 mls/hr IVPB Q8HR [facility] Rx#:[id number] Intake, IV Titration 241.501 179.339 Amount Diltiazem 125 mg In 61.334 Sodium Chloride 0.9% 100 ml @ 10 MG/HR 10 mls/hr IV .[id number] [facility] Rx#: [id number] Heparin Sod,Pork in 0.45% 180.167 179.339 NaCl 25,000 unit In 0.45 % NaCl 1 250ml.bag @ 8.49 UNITS/KG/HR 10.001 mls/ hr IV .Q24H [facility] Rx#: [id number] Oral 500 540 Output: Urine 780 1600 Uretheral (Watkins) 600 Other: Voiding Method Indwelling Catheter Indwelling Catheter - Labs CBC & Chem 7: 12/24/23 05:21 12/23/23 04:05 Labs: Abnormal Lab Results - Last 24 Hours (Table) 12/23/23 12/23/23 12/24/23 Range/Units 17:56 23:25 05:16 WBC (3.8-10.6) k/uL RBC (3.80-5.40) m/uL MCH (25.0-35.0) pg MCHC (31.0-37.0) g/dL RDW (11.5-15.5) % Neutrophils # (1.3-7.7) k/uL Lymphocytes # (1.0-4.8) k/uL APTT 123.4 H* (22.0-30.0) sec POC Glucose (mg/dL) 204 H 183 H (70-110) mg/dL TSH (0.465-4.680) mIU/L 12/24/23 12/24/23 12/24/23 Range/Units 05:21 05:21 06:01 WBC 16.9 H (3.8-10.6) k/uL RBC 5.48 H (3.80-5.40) m/uL MCH 24.1 L (25.0-35.0) pg MCHC 28.7 L (31.0-37.0) g/dL RDW 16.2 H (11.5-15.5) % Neutrophils # 15.5 H (1.3-7.7) k/uL Lymphocytes # 0.3 L (1.0-4.8) k/uL APTT (22.0-30.0) sec POC Glucose (mg/dL) 156 H (70-110) mg/dL TSH <0.015 L (0.465-4.680) mIU/L
[2023-12-24] MEDS: APIXABAN 5 MG TAB PO SCH (09:58)
--- NOTE | 2023-12-24 11:29 | P.PN ---
Subjective This is a pleasant 63 years of with past medical history of multiple medical problems Presents emergency room because of dyspnea, she received 1 dose of Ativan to help her get through the CAT scan. After the test patient becomes more encephalopathic and required more respiratory support and she was placed on BiPAP. Patient provided information. She follows simple commands. She has decreased breath sounds on both sides with scattered wheezing. No chest pain. Abdomen soft. Tachypneic but afebrile Labs showed mild leukocytosis of 13.3. Patient with rest of CBC is unremarkable, INR 1.1 BMP and liver function tests are unremarkable as well. pH is low 7.24 and elevated pCO2 of 81. proBNP is elevated to 190. Troponin -0.02 Influenza A and type B, RSV, SARS (coronavirus) are and detected On the preserved normal left ventricle ejection fraction of 50 to 55% but other than that it was of suboptimal study and right ventricle could not be visualized CTA of the chest showing no pulmonary embolism. Bilateral basal consolidation suspicious for infectious process. Also with evidence of CHF and cardiomegaly. With pulmonary hypertension. Patient was started on Unasyn, IV vancomycin and Solu-Medrol. 12/22/2023 Patient remains in the ICU in critical condition but improving Today his mentation improved significantly and she is awake alert but drowsy and is still mildly confused but she follows commands. She remains on BiPAP this morning with mild tachycardia and tachypnea, heart rate was 124 and a breathing rate 24. Her acidotic pH improved 7.48 and pCO2 back to reference range at 51. Repeat troponin this morning is -0.019. Chest x-ray showing cardiomegaly with CHF and pleural effusion. WBC 16.3 but patient is on steroids BMP is unremarkable Remains on Unasyn, IV Lasix 40 mg every 8 hours and Solu-Medrol 60 mg She is still on BiPAP machine 40/8 with FiO2 of 70% Patient is getting more awake she follows commands. She denies chest pain. She developed atrial fibrillation, which is a new onset. Monitor showing atrial flutter with a 3-1 block Patient currently on Cardizem drip at 10 mg and heparin drip Patient eventually oxygen saturation improved and she switched to 15 L/min via high flow nasal cannula and patient was transferred out of the ICU to the third floor at [facility] Patient remains on IV Solu-Medrol and IV Lasix and Unasyn 12/24/2023 Patient breathing stable since yesterday on 15 L oxygen via nasal cannula She is coughing a lot and Robitussin added today No chest pain She feels a little anxious and Xanax are provided for her Heart rate is better controlled and Cardizem drip was stopped and heparin drip was switched to Eliquis. Her TSH is low, we added T4 Objective - Vital Signs Vital signs: Vital Signs Temp 97.9 F 12/24/23 08:15 Pulse 57 L 12/24/23 11:16 Resp 19 12/24/23 11:16 BP 129/77 12/24/23 11:16 Pulse Ox 87 L 12/24/23 11:16 FiO2 70 12/24/23 08:25 Intake & Output 12/23/23 12/24/23 12/24/23 18:59 06:59 18:59 Intake Total 1026.501 719.339 120 Output Total 780 1600 Balance 246.501 -880.661 120 Weight 140 kg Intake: IV 285 .9NS 185 Ampicillin-Sulbactam 3 gm 100 In Sodium Chloride 0.9% 100 ml @ 200 mls/hr IVPB Q8HR [facility] Rx#:[id number] Intake, IV Titration 241.501 179.339 Amount Diltiazem 125 mg In 61.334 Sodium Chloride 0.9% 100 ml @ 10 MG/HR 10 mls/hr IV .[id number] [facility] Rx#: [id number] Heparin Sod,Pork in 0.45% 180.167 179.339 NaCl 25,000 unit In 0.45 % NaCl 1 250ml.bag @ 8.49 UNITS/KG/HR 10.001 mls/ hr IV .Q24H [facility] Rx#: [id number] Oral 500 540 120 Output: Urine 780 1600 Uretheral (Watkins) 600 Other: Voiding Method Indwelling Catheter Indwelling Catheter Indwelling Catheter - Exam -GENERAL: The patient is alert and oriented x3, not in any acute distress. Obese HEENT: Pupils are round and equally reacting to light. EOMI. No scleral icterus. No conjunctival pallor. Normocephalic, atraumatic. No pharyngeal erythema. No thyromegaly. CARDIOVASCULAR: S1 and S2 present. No murmurs, rubs, or gallops. -PULMONARY: Chest is clear to auscultation, bilateral scattered wheezing , no crackles. Decreased air entry on both sides ABDOMEN: Soft, nontender, nondistended, normoactive bowel sounds. No palpable organomegaly. MUSCULOSKELETAL: No joint swelling or deformity. EXTREMITIES: No cyanosis, clubbing, or pedal edema. NEUROLOGICAL: Gross neurological examination did not reveal any focal deficits. SKIN: No rashes. no petechiae. - Labs CBC & Chem 7: 12/24/23 05:21 12/23/23 04:05 Labs: Abnormal Lab Results - Last 24 Hours (Table) 12/23/23 12/23/23 12/24/23 Range/Units 17:56 23:25 05:16 WBC (3.8-10.6) k/uL RBC (3.80-5.40) m/uL MCH (25.0-35.0) pg MCHC (31.0-37.0) g/dL RDW (11.5-15.5) % Neutrophils # (1.3-7.7) k/uL Lymphocytes # (1.0-4.8) k/uL APTT 123.4 H* (22.0-30.0) sec POC Glucose (mg/dL) 204 H 183 H (70-110) mg/dL TSH (0.465-4.680) mIU/L 12/24/23 12/24/23 12/24/23 Range/Units 05:21 05:21 06:01 WBC 16.9 H (3.8-10.6) k/uL RBC 5.48 H (3.80-5.40) m/uL MCH 24.1 L (25.0-35.0) pg MCHC 28.7 L (31.0-37.0) g/dL RDW 16.2 H (11.5-15.5) % Neutrophils # 15.5 H (1.3-7.7) k/uL Lymphocytes # 0.3 L (1.0-4.8) k/uL APTT (22.0-30.0) sec POC Glucose (mg/dL) 156 H (70-110) mg/dL TSH <0.015 L (0.465-4.680) mIU/L Assessment and Plan Assessment: Acute diastolic CHF with preserved ejection fraction Atrial fibrillation/Flutter, new onset Acute COPD exacerbation Bilateral basal pneumonia is suspected Obesity hypoventilation syndrome Pulmonary hypertension Metabolic encephalopathy Acute hypoxemic hypercapnic failure Morbid obesity with BMI of more than 40 Respiratory acidosis Plan: continue with metoprolol and Eliquis a Continue with antibiotic, Unasyn Change IV Solu-Medrol to prednisone Continue with Lasix IV into prednisone Cardiology and pulmonary team consult Labs and medication were reviewed.. Continue same treatment. Continue with symptomatic treatment. Resume home medication. Monitor labs and vitals. DVT and GI prophylaxis. Further recommendations as per clinical course of the p atient DVT prophylaxis: Subcutaneous heparin GI Prophylaxis: Ppi Prognosis is guarded
[2023-12-24 11:44] LABS: Glucose,Whole Blood 144 mg/dL (70-110)
--- NOTE | 2023-12-24 11:44 | P.PN ---
Subjective Progress Note Date: 12/24/23 This is a morbidly obese 63-year-old female patient with typical features of obstructive sleep apnea and obesity hypoventilation syndrome. The patient came in to the emergency department because of worsening shortness of breath. While undergoing a CAT scan of the chest, the patient also was given a dose of Ativan. Subsequently, the patient became obtunded, lethargic and sleepy. Blood gas showed hypercapnic respiratory failure probably a component of an acute on top of chronic hypercapnic respiratory failure with a pH of 7.24 with a pCO2 of 88 and pO2 of 47. Based on that, the patient was placed on a BiPAP at a pressure of 12 over 5 cm of water. Currently, the BiPAP is running and the patient is on FiO2 100% which is gradually being weaned off. Most recent blood gas showed a pH of 7.28 with a pCO2 of 81 and pO2 of 104. She is able to generate a tidal volume of 3 50-400. She underwent a CT angiogram of the chest that was suboptimal and there was no evidence of any central pulmonary embolism. There was anasarca with mild cardiomegaly and pulmonary arterial hypertension and mild component of CHF as the patient had upper lung septal lines being more prominent and thickened. The patient also had some atelectatic changes and early pneumonitis in the lower lobes bilaterally. Echocardiogram was again suboptimal due to her body habitus. The patient had a preserved LV function without any valvular abnormalities. Blood work shows chronic metabolic alkalosis with a serum bicarb of 36 and a sodium level of 142 and a potassium level of 4.2. WBC count of 13.3 with a hemoglobin 14.2 and a platelet count of 255. The viral panel has been negative. proBNP level is 2190. Troponins are 0.02. Smoking status is not known. On today's evaluation of 12/22/2023, the patient is being seen for a follow-up. The patient is more alert compared to yesterday. Overnight, the patient was kept on a BiPAP essentially on the same setting of 14 over 8 cm of water. FiO2 remains at 100% and the patient is not showing significant improvement in oxygenation. Nevertheless, neurologically she is more awake compared to yesterday. Follow-up blood gas was done And this was on the current BiPAP setting and it showed a pH of 7.47 with a pCO2 of 51 and a pO2 of 56 and there is improvement in the patient's hypercapnia. The patient is able to follow simple commands. She is able to communicate. The repeat chest x-ray from today was reviewed and there is cardiomegaly and pulm vascular congestion and small bilateral pleural effusion. The patient remains on diuretics and she is on Lasix 40 mg IV every 8 hours. Overall fluid balance is -2.7 L over the past 24 hours. Her white cell count today is at 16.3 with hemoglobin 15.6 and a platelet count of 207. Sodium is at 143, BUN is at 21 with a creatinine of 0.6 and a potassium level is at 4.7 and a serum bicarb is at 35. As mentioned, troponins are negative and the is at 0.02 and 0.01 respectively. The viral panel has been negative. She remains on bronchodilators. She remains on IV Solu-Medrol 60 mg every 6 hours and she is also on empiric antibiotic coverage with IV Unasyn. On today's evaluation of 12/23/2023, I am seeing the patient for a follow-up. The patient is awake and alert and communicating at this point in time. Note that she was in hypercapnic respiratory failure and initially the patient was treated with a BiPAP at a pressure of 14 over 8 cm of water and subsequently the patient was transitioned to high flow oxygen at 15 L/min nasal cannula. Her current pulse ox is around 87 to 88%. She remains on diuretics and the patient remains in negative fluid balance of 2.7 L over the past 24 hours. She remains also on bronchodilators and steroids. She seems to be less bronchospastic and wheezy. She is arousable and she is communicating at this point in time. Note that the patient also had an episode of A-fib RVR at around 5 PM yesterday afternoon. The patient was started on Cardizem and the patient is currently on metoprolol for rate control and the dose of 25 mg p.o. twice a day. The patient was also started on IV heparin. The patient remains on IV Unasyn. WBC count is 14.5 with hemoglobin 13 and a platelet count of 180. BUN is 36 with a creatinine of 0.69 and his sodium levels at 140. Procalcitonin level was at 0.06, essentially nonelevated. Echocardiogram that was limited showed a preserved LV function. No signs of any hypercapnic respiratory failure. She is awake and alert and c ommunicating at this point in time. On today's evaluation of 12/24/2023, the patient is being seen for a follow-up. Awake and alert. No signs of any CO2 narcosis. She remains on high flow oxygen at 15 L with a pulse ox barely above 88%. She continues to have lower extremity edema. She did have bouts of delirium and hallucinations yesterday. This is attributed to systemic steroids and the patient will be taken off the IV Solu- Medrol and started on a prednisone burst taper. She remains on Unasyn. She remains on Lasix 40 mg IV every 8 hours. She is also on beta-blockers with metoprolol 25 mg p.o. twice daily. Blood work from today shows a WBC count of 16.9 with a hemoglobin 13 and a platelet count of 152. Her TSH was also low. Will need to check a free T4. Her cardiac rhythm is sinus at this point in time. LV function was normal. She reports some improvement in lower extremity edema. She is obviously this bronchospastic and wheezy. Objective - Vital Signs Vital signs: Vital Signs Temp 97.9 F 12/24/23 08:15 Pulse 58 L 12/24/23 08:15 Resp 20 12/24/23 08:15 BP 148/84 12/24/23 08:15 Pulse Ox 91 L 12/24/23 08:15 FiO2 70 12/24/23 02:37 Intake & Output 12/23/23 12/24/23 12/24/23 18:59 06:59 18:59 Intake Total 1026.501 719.339 Output Total 780 1600 Balance 246.501 -880.661 Weight 140 kg Intake: IV 285 .9NS 185 Ampicillin-Sulbactam 3 gm 100 In Sodium Chloride 0.9% 100 ml @ 200 mls/hr IVPB Q8HR [facility] Rx#:[id number] Intake, IV Titration 241.501 179.339 Amount Diltiazem 125 mg In 61.334 Sodium Chloride 0.9% 100 ml @ 10 MG/HR 10 mls/hr IV .[id number] [facility] Rx#: [id number] Heparin Sod,Pork in 0.45% 180.167 179.339 NaCl 25,000 unit In 0.45 % NaCl 1 250ml.bag @ 8.49 UNITS/KG/HR 10.001 mls/ hr IV .Q24H [facility] Rx#: [id number] Oral 500 540 Output: Urine 780 1600 Uretheral (Watkins) 600 Other: Voiding Method Indwelling Catheter Indwelling Catheter - Exam Morbidly obese with a BMI of 41.2, awake and alert and communicating on 15 L of oxygen by nasal cannula Head exam was generally normal. There was no scleral icterus or corneal arcus. Mucous membranes were moist. Neck was supple and without jugular venous distension, thyromegaly, or carotid bruits. Carotids were easily palpable bilaterally. There was no adenopathy. Carotid a posterior pharynx with a Mallampati class IV Lung sounds are diminished bilaterally along with prolongation of the expiratory phase of breathing as Per wheezes Heart sounds are distant, positive S1-S2, no significant murmurs could be appreciated. Abdomen is obese and nontender. Organs cannot be accurately felt. No direct tenderness. No rebound tenderness. No guarding. Extremities reveal +1 pitting edema and there is no cyanosis or clubbing. Examination of the skin revealed no evidence of significant rashes, suspicious appearing nevi or other concerning lesions. Neurologic exam reveals that the patient is arousable and more awake compared to yesterday and the patient continues to improve Pupils are equal reactive to light. No focal neurological deficits. Awake and alert and communicating and the patient is alert and awake x 3 - Labs CBC & Chem 7: 12/24/23 05:21 12/23/23 04:05 Labs: Abnormal Lab Results - Last 24 Hours (Table) 12/23/23 12/23/23 12/24/23 Range/Units 17:56 23:25 05:16 WBC (3.8-10.6) k/uL RBC (3.80-5.40) m/uL MCH (25.0-35.0) pg MCHC (31.0-37.0) g/dL RDW (11.5-15.5) % Neutrophils # (1.3-7.7) k/uL Lymphocytes # (1.0-4.8) k/uL APTT 123.4 H* (22.0-30.0) sec POC Glucose (mg/dL) 204 H 183 H (70-110) mg/dL TSH (0.465-4.680) mIU/L 12/24/23 12/24/23 12/24/23 Range/Units 05:21 05:21 06:01 WBC 16.9 H (3.8-10.6) k/uL RBC 5.48 H (3.80-5.40) m/uL MCH 24.1 L (25.0-35.0) pg MCHC 28.7 L (31.0-37.0) g/dL RDW 16.2 H (11.5-15.5) % Neutrophils # 15.5 H (1.3-7.7) k/uL Lymphocytes # 0.3 L (1.0-4.8) k/uL APTT (22.0-30.0) sec POC Glucose (mg/dL) 156 H (70-110) mg/dL TSH <0.015 L (0.465-4.680) mIU/L Assessment and Plan Plan: Acute on chronic hypercapnic and hypoxic respiratory failure, currently off BiPAP and the patient has been transitioned to 15 L of oxygen by nasal cannula. Respiratory failure is multifactorial. The patient has chronic hypercapnic and hypoxic jaylon failure due to COPD/obesity hypoventilation syndrome and obstructive sleep apnea. Obstructive sleep apnea has not been officially diagnosed on this patient. Nevertheless, she has atypical features. She was supported with BiPAP and the patient is currently on 15 L nasal cannula. She was treated with a combination of bronchodilators and steroids and antibiotic and the patient is also on Lasix as the patient has obvious signs of fluid overload. Oxygenation remains unchanged since yesterday and the patient continues to have some hypoxemia even on 15 L of O2 nasal cannula. Morbid obesity with a BMI of 41.2 Obstructive sleep apnea along with a component of obesity hypoventilation syndrome, clinically suspected and the patient has chronic metabolic alkalosis suggestive of chronic hypercapnic respiratory failure COPD with prolongation of exhalation of breathing is Explained wheezes, currently on a combination of bronchodilators and steroids. CHF with preserved LV function and the patient is interstitial edema, pulmonary arterial hypertension with prominent pulmonary arteries on the CT of the chest and the patient is increased edema lower extremities. The proBNP level has been mildly elevated at 2190 CO2 narcosis with diminished level of consciousness secondary to above Smoker, 1 PPD New onset A-fib with RVR, converted to normal sinus mechanism the patient is currently on oral metoprolol and anticoagulation with Eliquis. Plan Continue oxygen and high flow at 15 L/min nasal cannula. May utilize Airvo if needed. Continue DuoNeb nebulized treatments [id number] Continue diuresis with Lasix 40 mg IV every 8 hours and monitor the fluid balance, the patient remains in negative fluid balance. Discontinue IV Solu-Medrol and start the patient on prednisone burst taper Continue empiric antibiotic with Unasyn Management of atrial fibrillation per cardiology. The patient is currently on metoprolol and anticoagulation with Eliquis. IV heparin has been discontinued. Cardiac rhythm is sinus Labs were noted Echo was noted Neurologically more awake compared to yesterday. Sliding scale insulin coverage Smoking cessation counseling
[2023-12-24] MEDS: guaiFENesin-DM 100-10MG/5ML 10 ML CUP PO PRN (17:47)
[2023-12-24 17:58] LABS: Glucose,Whole Blood 185 mg/dL (70-110)
[2023-12-24] MEDS ORDERED: IPRATROPIUM-ALBUTEROL 3 ML NEB INHALATION PRN (21:12)
[2023-12-24 23:21] LABS: Glucose,Whole Blood 168 mg/dL (70-110)
[2023-12-24] MEDS: ALPRAZolam 0.5 MG TAB PO PRN (23:24)
[2023-12-25 06:05] LABS: Glucose,Whole Blood 138 mg/dL (70-110)
[2023-12-25] MEDS: predniSONE 20 MG TAB PO SCH (08:00)
[2023-12-25] MEDS: IPRATROPIUM-ALBUTEROL 3 ML NEB INHALATION SCH (08:58)
--- NOTE | 2023-12-25 10:35 | P.PN ---
Subjective Progress Note Date: 12/25/23 Principal diagnosis: CHF This is a 63-year-old female patient with a past medical history significant for smoking and COPD and morbid obesity. No prior history of coronary artery disease or congestive heart failure or cardiac arrhythmia. She is also morbidly obese. The patient is currently in the intensive care unit. She is on BiPAP and she is extremely poor historian and lethargic. History was taken from the chart as well as from the nurse taking care of the patient. The patient presented to the hospital with a few weeks progressive shortness of breath associated with bilateral lower extremities edema. No cough and no sputum production. No fever and no chills. No indication of any chest pain or chest discomfort. She was hypoxic when she presented with oxygen saturation in the 60s. She was started on BiPAP and she was admitted to the intensive care unit. Currently she is hemodynamically stable. She underwent further workup including an EKG and that showed sinus mechanism with no significant ST or T wave abnormalities and chest x-ray showed pulmonary vascular congestions and pleural effusion. CT scan of the chest came in to be unremarkable for pulmonary embolism after D-dimer came in to be abnormal. Beside that her WBC was elevated. Renal function and electrolytes were within normal limits. No troponin was performed. In the morning she was noted to be in "atrial fibrillation". Reviewing the EKG showed only sinus mechanism with PACs. The echo revealed normal LV systolic function but the echo was technically very difficult. On examination she has distant heart sounds with regular rhythm and diminished breathing sounds bilaterally and bilateral lower extremities edema. Currently she is on Lasix IV. December 23, 2023 The patient was seen and evaluated this morning. She is on BiPAP at this point. She is hemodynamically stable. She went into atrial fibrillation/atrial flutter with overall controlled heart rate on the current dose of Cardizem IV. Beside that she is on heparin IV. She has been diuresing well on the current dose of Lasix IV. From the cardiovascular standpoint of view, we will continue the current medical regimen and continue heparin IV and consider switching the patient to oral anticoagulation down the line as well as start the patient on beta-silvia and try to wean her from Cardizem IV. The examination is remarkable for bilateral lower extremities edema with diminished breathing sounds bilaterally and irregular rhythm. December 24, 2023 The patient was seen and evaluated this morning. She continues to be hypoxic requiring high flow oxygen. She continues to be in failure in addition to COPD exacerbation. She is in sinus mechanism. The echo showed normal LV systolic function with examination showed distant heart sounds with diminished breathing sounds bilaterally and bilateral lower extremities edema December 25, 2023 The patient was seen and evaluated this morning. She continues to be hypoxic. Her shortness of breath has been somewhat better. No pain in the chest. She did have an episode of A-fib with RVR yesterday and subsequently converted to normal sinus mechanism. She has been maintaining normal sinus mechanism. She has been on oral anticoagulation with I am going to increase the dose of metoprolol to 50 mg p.o. twice daily. Meanwhile continue the current dose of Lasix IV and consider obtaining a blood work in the morning. The examination is remarkable for regular rhythm with a distant heart sounds and mild bilateral expiratory wheezing and mild bilateral upper and lower extremities edema. Assessment Acute hypoxic respiratory failure likely secondary to COPD and CHF Heart failure exacerbation secondary to heart failure with a preserved ejection fraction Morbid obesity Cardiac arrhythmia with PACs at this point Atrial fibrillation which is new Multiple comorbid cond She has been diuresing well on the current dose of Lasix IV.itions Plan Continue the current dose of Lasix IV Continue monitoring the kidney function and electrolytes Increase the dose of beta-silvia Objective - Vital Signs Vital signs: Vital Signs Temp 98.2 F 12/25/23 07:58 Pulse 64 12/25/23 09:19 Resp 18 12/25/23 09:12 BP 130/83 12/25/23 07:58 Pulse Ox 92 L 12/25/23 08:58 FiO2 70 12/25/23 03:58 Intake & Output 12/24/23 12/25/23 12/25/23 18:59 06:59 18:59 Intake Total 660 540 240 Output Total 1475 1000 Balance -815 -460 240 Weight 135.5 kg Intake: Oral 660 540 240 Output: Urine 1475 1000 Other: Voiding Method Indwelling Catheter Indwelling Catheter Indwelling Catheter - Labs CBC & Chem 7: 12/24/23 05:21 12/23/23 04:05 Labs: Abnormal Lab Results - Last 24 Hours (Table) 12/24/23 12/24/23 12/24/23 Range/Units 11:43 17:56 23:20 POC Glucose (mg/dL) 144 H 185 H 168 H (70-110) mg/dL 12/25/23 Range/Units 06:03 POC Glucose (mg/dL) 138 H (70-110) mg/dL
[2023-12-25 11:59] LABS: Glucose,Whole Blood 138 mg/dL (70-110)
[2023-12-25 12:44] LABS: African American GFR (CKD) 89 (>60 ml/min/1.73 sqM); Anion Gap 7 mmol/L; Blood Urea Nitrogen 42 mg/dL (7-17); Calcium 8.3 mg/dL (8.4-10.2); Chloride 95 mmol/L (98-107); Glucose 138 mg/dL (74-99); Non-African American GFR(CKD) 77 (>60 ml/min/1.73 sqM); Potassium 3.7 mmol/L (3.5-5.1); Sodium 142 mmol/L (137-145)
[2023-12-25 12:52] LABS: Carbon Dioxide 40 mmol/L (22-30)
--- NOTE | 2023-12-25 15:39 | P.PN ---
Subjective This is a pleasant 63 years of with past medical history of multiple medical problems Presents emergency room because of dyspnea, she received 1 dose of Ativan to help her get through the CAT scan. After the test patient becomes more encephalopathic and required more respiratory support and she was placed on BiPAP. Patient provided information. She follows simple commands. She has decreased breath sounds on both sides with scattered wheezing. No chest pain. Abdomen soft. Tachypneic but afebrile Labs showed mild leukocytosis of 13.3. Patient with rest of CBC is unremarkable, INR 1.1 BMP and liver function tests are unremarkable as well. pH is low 7.24 and elevated pCO2 of 81. proBNP is elevated to 190. Troponin -0.02 Influenza A and type B, RSV, SARS (coronavirus) are and detected On the preserved normal left ventricle ejection fraction of 50 to 55% but other than that it was of suboptimal study and right ventricle could not be visualized CTA of the chest showing no pulmonary embolism. Bilateral basal consolidation suspicious for infectious process. Also with evidence of CHF and cardiomegaly. With pulmonary hypertension. Patient was started on Unasyn, IV vancomycin and Solu-Medrol. 12/22/2023 Patient remains in the ICU in critical condition but improving Today his mentation improved significantly and she is awake alert but drowsy and is still mildly confused but she follows commands. She remains on BiPAP this morning with mild tachycardia and tachypnea, heart rate was 124 and a breathing rate 24. Her acidotic pH improved 7.48 and pCO2 back to reference range at 51. Repeat troponin this morning is -0.019. Chest x-ray showing cardiomegaly with CHF and pleural effusion. WBC 16.3 but patient is on steroids BMP is unremarkable Remains on Unasyn, IV Lasix 40 mg every 8 hours and Solu-Medrol 60 mg She is still on BiPAP machine 40/8 with FiO2 of 70% Patient is getting more awake she follows commands. She denies chest pain. She developed atrial fibrillation, which is a new onset. Monitor showing atrial flutter with a 3-1 block Patient currently on Cardizem drip at 10 mg and heparin drip Patient eventually oxygen saturation improved and she switched to 15 L/min via high flow nasal cannula and patient was transferred out of the ICU to the third floor at [facility] Patient remains on IV Solu-Medrol and IV Lasix and Unasyn 12/24/2023 Patient breathing stable since yesterday on 15 L oxygen via nasal cannula She is coughing a lot and Robitussin added today No chest pain She feels a little anxious and Xanax are provided for her Heart rate is better controlled and Cardizem drip was stopped and heparin drip was switched to Eliquis. Her TSH is low, we added T4 12/25/2023 Patient awake and alert Breathing is improving and oxygen requirement down to 13 L/min. No chest pain. No other new complaints She is currently on prednisone 40 mg a and IV Lasix 40 mg and Unasyn Objective - Vital Signs Vital signs: Vital Signs Temp 98.2 F 12/25/23 07:58 Pulse 64 12/25/23 09:19 Resp 18 12/25/23 09:12 BP 130/83 12/25/23 07:58 Pulse Ox 92 L 12/25/23 08:58 FiO2 70 12/25/23 03:58 Intake & Output 12/24/23 12/25/23 12/25/23 18:59 06:59 18:59 Intake Total 660 540 240 Output Total 1475 1000 Balance -815 -460 240 Weight 135.5 kg Intake: Oral 660 540 240 Output: Urine 1475 1000 Other: Voiding Method Indwelling Catheter Indwelling Catheter Indwelling Catheter - Exam -GENERAL: The patient is alert and oriented x3, not in any acute distress. Obese HEENT: Pupils are round and equally reacting to light. EOMI. No scleral icterus. No conjunctival pallor. Normocephalic, atraumatic. No pharyngeal erythema. No thyromegaly. CARDIOVASCULAR: S1 and S2 present. No murmurs, rubs, or gallops. -PULMONARY: Chest is clear to auscultation, bilateral scattered wheezing , no crackles. Decreased air entry on both sides ABDOMEN: Soft, nontender, nondistended, normoactive bowel sounds. No palpable organomegaly. MUSCULOSKELETAL: No joint swelling or deformity. EXTREMITIES: No cyanosis, clubbing, or pedal edema. NEUROLOGICAL: Gross neurological examination did not reveal any focal deficits. SKIN: No rashes. no petechiae. - Labs CBC & Chem 7: 12/24/23 05:21 12/25/23 11:35 Labs: Abnormal Lab Results - Last 24 Hours (Table) 12/24/23 12/24/23 12/24/23 Range/Units 11:43 17:56 23:20 POC Glucose (mg/dL) 144 H 185 H 168 H (70-110) mg/dL 12/25/23 Range/Units 06:03 POC Glucose (mg/dL) 138 H (70-110) mg/dL Assessment and Plan Assessment: Acute diastolic CHF with preserved ejection fraction Atrial fibrillation/Flutter, new onset Acute COPD exacerbation Bilateral basal pneumonia is suspected Obesity hypoventilation syndrome Pulmonary hypertension Metabolic encephalopathy Acute hypoxemic hypercapnic failure Morbid obesity with BMI of more than 40 Respiratory acidosis Plan: continue with metoprolol and Eliquis a Continue with antibiotic, Unasyn Change IV Solu-Medrol to prednisone Continue with Lasix IV into prednisone Cardiology and pulmonary team consult Labs and medication were reviewed.. Continue same treatment. Continue with symptomatic treatment. Resume home medication. Monitor labs and vitals. DVT and GI prophylaxis. Further recommendations as per clinical course of the patient DVT prophylaxis: Subcutaneous heparin GI Prophylaxis: Ppi Prognosis is guarded
--- NOTE | 2023-12-25 16:34 | P.PN ---
Subjective Progress Note Date: 12/25/23 This is a morbidly obese 63-year-old female patient with typical features of obstructive sleep apnea and obesity hypoventilation syndrome. The patient came in to the emergency department because of worsening shortness of breath. While undergoing a CAT scan of the chest, the patient also was given a dose of Ativan. Subsequently, the patient became obtunded, lethargic and sleepy. Blood gas showed hypercapnic respiratory failure probably a component of an acute on top of chronic hypercapnic respiratory failure with a pH of 7.24 with a pCO2 of 88 and pO2 of 47. Based on that, the patient was placed on a BiPAP at a pressure of 12 over 5 cm of water. Currently, the BiPAP is running and the patient is on FiO2 100% which is gradually being weaned off. Most recent blood gas showed a pH of 7.28 with a pCO2 of 81 and pO2 of 104. She is able to generate a tidal volume of 3 50-400. She underwent a CT angiogram of the chest that was suboptimal and there was no evidence of any central pulmonary embolism. There was anasarca with mild cardiomegaly and pulmonary arterial hypertension and mild component of CHF as the patient had upper lung septal lines being more prominent and thickened. The patient also had some atelectatic changes and early pneumonitis in the lower lobes bilaterally. Echocardiogram was again suboptimal due to her body habitus. The patient had a preserved LV function without any valvular abnormalities. Blood work shows chronic metabolic alkalosis with a serum bicarb of 36 and a sodium level of 142 and a potassium level of 4.2. WBC count of 13.3 with a hemoglobin 14.2 and a platelet count of 255. The viral panel has been negative. proBNP level is 2190. Troponins are 0.02. Smoking status is not known. On today's evaluation of 12/22/2023, the patient is being seen for a follow-up. The patient is more alert compared to yesterday. Overnight, the patient was kept on a BiPAP essentially on the same setting of 14 over 8 cm of water. FiO2 remains at 100% and the patient is not showing significant improvement in oxygenation. Nevertheless, neurologically she is more awake compared to yesterday. Follow-up blood gas was done And this was on the current BiPAP setting and it showed a pH of 7.47 with a pCO2 of 51 and a pO2 of 56 and there is improvement in the patient's hypercapnia. The patient is able to follow simple commands. She is able to communicate. The repeat chest x-ray from today was reviewed and there is cardiomegaly and pulm vascular congestion and small bilateral pleural effusion. The patient remains on diuretics and she is on Lasix 40 mg IV every 8 hours. Overall fluid balance is -2.7 L over the past 24 hours. Her white cell count today is at 16.3 with hemoglobin 15.6 and a platelet count of 207. Sodium is at 143, BUN is at 21 with a creatinine of 0.6 and a potassium level is at 4.7 and a serum bicarb is at 35. As mentioned, troponins are negative and the is at 0.02 and 0.01 respectively. The viral panel has been negative. She remains on bronchodilators. She remains on IV Solu-Medrol 60 mg every 6 hours and she is also on empiric antibiotic coverage with IV Unasyn. On today's evaluation of 12/23/2023, I am seeing the patient for a follow-up. The patient is awake and alert and communicating at this point in time. Note that she was in hypercapnic respiratory failure and initially the patient was treated with a BiPAP at a pressure of 14 over 8 cm of water and subsequently the patient was transitioned to high flow oxygen at 15 L/min nasal cannula. Her current pulse ox is around 87 to 88%. She remains on diuretics and the patient remains in negative fluid balance of 2.7 L over the past 24 hours. She remains also on bronchodilators and steroids. She seems to be less bronchospastic and wheezy. She is arousable and she is communicating at this point in time. Note that the patient also had an episode of A-fib RVR at around 5 PM yesterday afternoon. The patient was started on Cardizem and the patient is currently on metoprolol for rate control and the dose of 25 mg p.o. twice a day. The patient was also started on IV heparin. The patient remains on IV Unasyn. WBC count is 14.5 with hemoglobin 13 and a platelet count of 180. BUN is 36 with a creatinine of 0.69 and his sodium levels at 140. Procalcitonin level was at 0.06, essentially nonelevated. Echocardiogram that was limited showed a preserved LV function. No signs of any hypercapnic respiratory failure. She is awake and alert and c ommunicating at this point in time. On today's evaluation of 12/24/2023, the patient is being seen for a follow-up. Awake and alert. No signs of any CO2 narcosis. She remains on high flow oxygen at 15 L with a pulse ox barely above 88%. She continues to have lower extremity edema. She did have bouts of delirium and hallucinations yesterday. This is attributed to systemic steroids and the patient will be taken off the IV Solu- Medrol and started on a prednisone burst taper. She remains on Unasyn. She remains on Lasix 40 mg IV every 8 hours. She is also on beta-blockers with metoprolol 25 mg p.o. twice daily. Blood work from today shows a WBC count of 16.9 with a hemoglobin 13 and a platelet count of 152. Her TSH was also low. Will need to check a free T4. Her cardiac rhythm is sinus at this point in time. LV function was normal. She reports some improvement in lower extremity edema. She is obviously this bronchospastic and wheezy. On today's evaluation of 12/25/2023, the patient is still requiring oxygen and her FiO2 gradually being weaned off and the patient is currently on 30 L of O2 nasal cannula. Fluid balance remains -1.2 L over the past 24 hours. Still has lower extremity edema the patient remains on IV Lasix 40 mg every 8 hours. Remains on Unasyn. Remains on bronchodilators. Remains on steroids and the patient is currently on a prednisone burst taper. Sodium is at 142 with a potassium level of 3.7, chloride is 95 with a bicarb level is at 40. The patient has developed some metabolic alkalosis. Will add 2 doses of Diamox for the next 24 hours. No altered mentation. Objective - Vital Signs Vital signs: Vital Signs Temp 98.2 F 12/25/23 07:58 Pulse 64 12/25/23 09:19 Resp 18 12/25/23 09:12 BP 130/83 12/25/23 07:58 Pulse Ox 92 L 12/25/23 08:58 FiO2 70 12/25/23 03:58 Intake & Output 12/24/23 12/25/23 12/25/23 18:59 06:59 18:59 Intake Total 660 540 240 Output Total 1475 1000 Balance -815 -460 240 Weight 135.5 kg Intake: Oral 660 540 240 Output: Urine 1475 1000 Other: Voiding Method Indwelling Catheter Indwelling Catheter Indwelling Catheter - Exam Morbidly obese with a BMI of 41.2, awake and alert and communicating on 15 L of oxygen by nasal cannula Head exam was generally normal. There was no scleral icterus or corneal arcus. Mucous membranes were moist. Neck was supple and without jugular venous distension, thyromegaly, or carotid bruits. Carotids were easily palpable bilaterally. There was no adenopathy. Carotid a posterior pharynx with a Mallampati class IV Lung sounds are diminished bilaterally along with prolongation of the expiratory phase of breathing as Per wheezes Heart sounds are distant, positive S1-S2, no significant murmurs could be apprec iated. Abdomen is obese and nontender. Organs cannot be accurately felt. No direct tenderness. No rebound tenderness. No guarding. Extremities reveal +1 pitting edema and there is no cyanosis or clubbing. Examination of the skin revealed no evidence of significant rashes, suspicious appearing nevi or other concerning lesions. Neurologic exam reveals that the patient is arousable and more awake compared to yesterday and the patient continues to improve Pupils are equal reactive to light. No focal neurological deficits. Awake and alert and communicating and the patient is alert and awake x 3 - Labs CBC & Chem 7: 12/24/23 05:21 12/25/23 11:35 Labs: Abnormal Lab Results - Last 24 Hours (Table) 12/24/23 12/24/23 12/24/23 Range/Units 11:43 17:56 23:20 POC Glucose (mg/dL) 144 H 185 H 168 H (70-110) mg/dL 12/25/23 Range/Units 06:03 POC Glucose (mg/dL) 138 H (70-110) mg/dL Assessment and Plan Plan: Acute on chronic hypercapnic and hypoxic respiratory failure, currently off BiPAP and the patient has been transitioned to 15 L of oxygen by nasal cannula. Respiratory failure is multifactorial. The patient has chronic hypercapnic and hypoxic jaylon failure due to COPD/obesity hypoventilation syndrome and obstructive sleep apnea. Obstructive sleep apnea has not been officially diagnosed on this patient. Nevertheless, she has atypical features. She was supported with BiPAP and the patient is currently on 13 L nasal cannula. She was treated with a combination of bronchodilators and steroids and antibiotic and the patient is also on Lasix as the patient has obvious signs of fluid overload. Oxygenation remains unchanged since yesterday and the patient continues to have some hypoxemia even on 15 L of O2 nasal cannula Morbid obesity with a BMI of 41.2 Obstructive sleep apnea along with a component of obesity hypoventilation s yndrome, clinically suspected and the patient has chronic metabolic alkalosis suggestive of chronic hypercapnic respiratory failure COPD with prolongation of exhalation of breathing is Explained wheezes, currently on a combination of bronchodilators and steroids. CHF with preserved LV function and the patient is interstitial edema, pulmonary arterial hypertension with prominent pulmonary arteries on the CT of the chest and the patient is increased edema lower extremities. The proBNP level has been mildly elevated at 2190 CO2 narcosis with diminished level of consciousness secondary to above Smoker, 1 PPD New onset A-fib with RVR, converted to normal sinus mechanism the patient is currently on oral metoprolol and anticoagulation with Eliquis. Worsening metabolic alkalosis secondary to diuresis Plan Continue oxygen and high flow at 13 L of O2 nasal cannula Continue DuoNeb nebulized treatments [id number] Continue diuresis with Lasix 40 mg IV every 8 hours and monitor the fluid balance, the patient remains in negative fluid balance. Discontinue IV Solu-Medrol and start the patient on prednisone burst taper Continue empiric antibiotic with Unasyn Management of atrial fibrillation per cardiology. The patient is currently on metoprolol and anticoagulation with Eliquis. IV heparin has been discontinued. Cardiac rhythm is sinus Labs were noted Echo was noted Neurologically more awake compared to yesterday. Sliding scale insulin coverage Smoking cessation counseling Given to patient Diamox 250 mg IV every 12 hours x 2
[2023-12-25 18:20] LABS: Glucose,Whole Blood 184 mg/dL (70-110)
[2023-12-25] MEDS: METOPROLOL TARTRATE 50 MG TAB PO SCH (21:03)
[2023-12-25 23:50] LABS: Glucose,Whole Blood 158 mg/dL (70-110)
[2023-12-26 06:06] LABS: Glucose,Whole Blood 93 mg/dL (70-110)
[2023-12-26 12:03] LABS: Glucose,Whole Blood 152 mg/dL (70-110)
[2023-12-26] MEDS: SPIRONOLACTONE 25 MG TAB PO SCH (12:27)
[2023-12-26 12:33] LABS: African American GFR (CKD) 69 (>60 ml/min/1.73 sqM); Blood Urea Nitrogen 36 mg/dL (7-17); Calcium 8.2 mg/dL (8.4-10.2); Chloride 93 mmol/L (98-107); Glucose 128 mg/dL (74-99); Non-African American GFR(CKD) 60 (>60 ml/min/1.73 sqM); Potassium 3.8 mmol/L (3.5-5.1); Sodium 142 mmol/L (137-145)
[2023-12-26 12:40] LABS: Anion Gap 5 mmol/L
[2023-12-26 12:43] LABS: Carbon Dioxide 44 mmol/L (22-30)
--- NOTE | 2023-12-26 14:32 | P.PN ---
Subjective HISTORY OF PRESENT ILLNESS: This is a 63-year-old female patient with a past medical history significant for smoking and COPD and morbid obesity. No prior history of coronary artery disease or congestive heart failure or cardiac arrhythmia. She is also morbidly obese. The patient is currently in the intensive care unit. She is on BiPAP and she is extremely poor historian and lethargic. History was taken from the chart as well as from the nurse taking care of the patient. The patient presented to the hospital with a few weeks progressive shortness of breath associated with bilateral lower extremities edema. No cough and no sputum pr oduction. No fever and no chills. No indication of any chest pain or chest discomfort. She was hypoxic when she presented with oxygen saturation in the 60s. She was started on BiPAP and she was admitted to the intensive care unit. Currently she is hemodynamically stable. She underwent further workup including an EKG and that showed sinus mechanism with no significant ST or T wave abnormalities and chest x-ray showed pulmonary vascular congestions and pleural effusion. CT scan of the chest came in to be unremarkable for pulmonary embolism after D-dimer came in to be abnormal. Beside that her WBC was elevated. Renal function and electrolytes were within normal limits. No troponin was performed. In the morning she was noted to be in "atrial fibrillation". Reviewing the EKG showed only sinus mechanism with PACs. The echo revealed normal LV systolic function but the echo was technically very difficult. On examination she has distant heart sounds with regular rhythm and diminished breathing sounds bilaterally and bilateral lower extremities edema. Currently she is on Lasix IV. December 23, 2023 The patient was seen and evaluated this morning. She is on BiPAP at this point. She is hemodynamically stable. She went into atrial fibrillation/atrial flutter with overall controlled heart rate on the current dose of Cardizem IV. Beside that she is on heparin IV. She has been diuresing well on the current dose of Lasix IV. From the cardiovascular standpoint of view, we will continue the current medical regimen and continue heparin IV and consider switching the patient to oral anticoagulation down the line as well as start the patient on beta-silvia and try to wean her from Cardizem IV. The examination is remarkable for bilateral lower extremities edema with diminished breathing sounds bilaterally and irregular rhythm. December 24, 2023 The patient was seen and evaluated this morning. She continues to be hypoxic requiring high flow oxygen. She continues to be in failure in addition to COPD exacerbation. She is in sinus mechanism. The echo showed normal LV systolic function with examination showed distant heart sounds with diminished breathing sounds bilaterally and bilateral lower extremities edema December 25, 2023 The patient was seen and evaluated this morning. She continues to be hypoxic. Her shortness of breath has been somewhat better. No pain in the chest. She did have an episode of A-fib with RVR yesterday and subsequently converted to normal sinus mechanism. She has been maintaining normal sinus mechanism. She has been on oral anticoagulation with I am going to increase the dose of metoprolol to 50 mg p.o. twice daily. Meanwhile continue the current dose of Lasix IV and consider obtaining a blood work in the morning. The examination is remarkable for regular rhythm with a distant heart sounds and mild bilateral expiratory wheezing and mild bilateral upper and lower extremities edema. 12/26/2023 Patient examined this morning at the bedside. Patient currently denies chest pain or pressure. She currently denies shortness of breath. Patient is currently on 8 L nasal cannula. Telemetry reveals sinus mechanism with heart rate in the 70s. She is currently on IV Lasix 40 mg every 8 hours. Urine output over the last 24 hours is over 5 L. PHYSICAL EXAM: VITAL SIGNS: Reviewed. GENERAL: Well-developed in no acute distress. NECK: Supple. No JVD or thyromegaly LUNGS: Respirations even and unlabored. Lungs diminished at the bases HEART: Regular rate and rhythm. S1 and S2 heard. EXTREMITIES: Normal range of motion. No clubbing or cyanosis. Peripheral pulses intact. Bilateral lower extremity edema noted ASSESSMENT: Shortness of breath Acute hypoxic respiratory failure requiring supplemental oxygen Acute COPD exacerbation Acute on chronic heart failure with preserved EF New onset paroxysmal atrial fibrillation, currently maintaining sinus mechanism Hypertension Hyperlipidemia Morbid obesity: BMI 55.1 Obstructive sleep apnea Nicotine dependence PLAN: Continue current cardiac medications Discontinue IV Lasix. Begin oral Bumex 1 mg twice a day Daily weights, accurate intake and output, and monitoring of kidney function Wean oxygen as tolerated to maintain oxygen saturations greater than 92% Patient may need to be evaluated for home O2 Continue telemetry monitoring Discharge planning underway for DC to [facility] when stable Further recommendations pending patient course Nurse practitioner note has been reviewed by physician. Signing provider agrees with the documented findings, assessment, and plan of care documented by [employer] as a scribe. Objective - Vital Signs Vital signs: Vital Signs Temp 97.9 F 12/26/23 11:50 Pulse 64 12/26/23 14:00 Resp 17 12/26/23 14:00 BP 108/66 12/26/23 11:50 Pulse Ox 92 L 12/26/23 11:50 FiO2 70 12/26/23 04:00 Intake & Output 12/25/23 12/26/23 12/26/23 18:59 06:59 18:59 Intake Total 678 240 Output Total 1450 4100 Balance -772 -4100 240 Weight 136.7 kg Intake: IV 200 Ampicillin-Sulbactam 3 gm 200 In Sodium Chloride 0.9% 100 ml @ 200 mls/hr IVPB Q8HR [facility] Rx#:[id number] Oral 478 240 Output: Urine 1450 4100 Other: Voiding Method Indwelling Catheter Indwelling Catheter Indwelling Catheter # Bowel Movements 1 - Labs CBC & Chem 7: 12/24/23 05:21 12/26/23 11:27 Labs: Abnormal Lab Results - Last 24 Hours (Table) 12/25/23 12/25/23 12/26/23 Range/Units 18:17 23:47 11:27 Chloride 93 L (98-107) mmol/L Carbon Dioxide 44 H* (22-30) mmol/L BUN 36 H (7-17) mg/dL Glucose 128 H (74-99) mg/dL POC Glucose (mg/dL) 184 H 158 H (70-110) mg/dL Calcium 8.2 L (8.4-10.2) mg/dL 12/26/23 Range/Units 12:01 Chloride (98-107) mmol/L Carbon Dioxide (22-30) mmol/L BUN (7-17) mg/dL Glucose (74-99) mg/dL POC Glucose (mg/dL) 152 H (70-110) mg/dL Calcium (8.4-10.2) mg/dL
[2023-12-26] MEDS: BUMETANIDE 1 MG TAB PO SCH (16:04)
--- NOTE | 2023-12-26 16:18 | P.PN ---
Subjective Progress Note Date: 12/26/23 This is a morbidly obese 63-year-old female patient with typical features of obstructive sleep apnea and obesity hypoventilation syndrome. The patient came in to the emergency department because of worsening shortness of breath. While undergoing a CAT scan of the chest, the patient also was given a dose of Ativan. Subsequently, the patient became obtunded, lethargic and sleepy. Blood gas showed hypercapnic respiratory failure probably a component of an acute on top of chronic hypercapnic respiratory failure with a pH of 7.24 with a pCO2 of 88 and pO2 of 47. Based on that, the patient was placed on a BiPAP at a pressure of 12 over 5 cm of water. Currently, the BiPAP is running and the patient is on FiO2 100% which is gradually being weaned off. Most recent blood gas showed a pH of 7.28 with a pCO2 of 81 and pO2 of 104. She is able to generate a tidal volume of 3 50-400. She underwent a CT angiogram of the chest that was suboptimal and there was no evidence of any central pulmonary embolism. There was anasarca with mild cardiomegaly and pulmonary arterial hypertension and mild component of CHF as the patient had upper lung septal lines being more prominent and thickened. The patient also had some atelectatic changes and early pneumonitis in the lower lobes bilaterally. Echocardiogram was again suboptimal due to her body habitus. The patient had a preserved LV function without any valvular abnormalities. Blood work shows chronic metabolic alkalosis with a serum bicarb of 36 and a sodium level of 142 and a potassium level of 4.2. WBC count of 13.3 with a hemoglobin 14.2 and a platelet count of 255. The viral panel has been negative. proBNP level is 2190. Troponins are 0.02. Smoking status is not known. On today's evaluation of 12/22/2023, the patient is being seen for a follow-up. The patient is more alert compared to yesterday. Overnight, the patient was k ept on a BiPAP essentially on the same setting of 14 over 8 cm of water. FiO2 remains at 100% and the patient is not showing significant improvement in oxygenation. Nevertheless, neurologically she is more awake compared to yesterday. Follow-up blood gas was done And this was on the current BiPAP setting and it showed a pH of 7.47 with a pCO2 of 51 and a pO2 of 56 and there is improvement in the patient's hypercapnia. The patient is able to follow simple commands. She is able to communicate. The repeat chest x-ray from today was reviewed and there is cardiomegaly and pulm vascular congestion and small bilateral pleural effusion. The patient remains on diuretics and she is on Lasix 40 mg IV every 8 hours. Overall fluid balance is -2.7 L over the past 24 hours. Her white cell count today is at 16.3 with hemoglobin 15.6 and a platelet count of 207. Sodium is at 143, BUN is at 21 with a creatinine of 0.6 and a potassium level is at 4.7 and a serum bicarb is at 35. As mentioned, troponins are negative and the is at 0.02 and 0.01 respectively. The viral panel has been negative. She remains on bronchodilators. She remains on IV Solu-Medrol 60 mg every 6 hours and she is also on empiric antibiotic coverage with IV Unasyn. On today's evaluation of 12/23/2023, I am seeing the patient for a follow-up. The patient is awake and alert and communicating at this point in time. Note that she was in hypercapnic respiratory failure and initially the patient was treated with a BiPAP at a pressure of 14 over 8 cm of water and subsequently the patient was transitioned to high flow oxygen at 15 L/min nasal cannula. Her current pulse ox is around 87 to 88%. She remains on diuretics and the patient remains in negative fluid balance of 2.7 L over the past 24 hours. She remains also on bronchodilators and steroids. She seems to be less bronchospastic and wheezy. She is arousable and she is communicating at this point in time. Note that the patient also had an episode of A-fib RVR at around 5 PM yesterday afternoon. The patient was started on Cardizem and the patient is currently on metoprolol for rate control and the dose of 25 mg p.o. twice a day. The patient was also started on IV heparin. The patient remains on IV Unasyn. WBC count is 14.5 with hemoglobin 13 and a platelet count of 180. BUN is 36 with a creatinine of 0.69 and his sodium levels at 140. Procalcitonin level was at 0.06, essentially nonelevated. Echocardiogram that was limited showed a preserved LV function. No signs of any hypercapnic respiratory failure. She is awake and alert and co mmunicating at this point in time. On today's evaluation of 12/24/2023, the patient is being seen for a follow-up. Awake and alert. No signs of any CO2 narcosis. She remains on high flow oxygen at 15 L with a pulse ox barely above 88%. She continues to have lower extremity edema. She did have bouts of delirium and hallucinations yesterday. This is attributed to systemic steroids and the patient will be taken off the IV Solu- Medrol and started on a prednisone burst taper. She remains on Unasyn. She remains on Lasix 40 mg IV every 8 hours. She is also on beta-blockers with metoprolol 25 mg p.o. twice daily. Blood work from today shows a WBC count of 16.9 with a hemoglobin 13 and a platelet count of 152. Her TSH was also low. Will need to check a free T4. Her cardiac rhythm is sinus at this point in time. LV function was normal. She reports some improvement in lower extremity edema. She is obviously this bronchospastic and wheezy. On today's evaluation of 12/25/2023, the patient is still requiring oxygen and her FiO2 gradually being weaned off and the patient is currently on 30 L of O2 nasal cannula. Fluid balance remains -1.2 L over the past 24 hours. Still has lower extremity edema the patient remains on IV Lasix 40 mg every 8 hours. Remains on Unasyn. Remains on bronchodilators. Remains on steroids and the patient is currently on a prednisone burst taper. Sodium is at 142 with a potassium level of 3.7, chloride is 95 with a bicarb level is at 40. The patient has developed some metabolic alkalosis. Will add 2 doses of Diamox for the next 24 hours. No altered mentation. The patient is seen today December 26, 2023 in follow-up on the selective care unit. She is currently sitting up in a chair at the bedside. Awake and alert in no acute distress. She is currently on 10 L high flow nasal cannula to maintain O2 saturations in the 90s. She is alternating with BiPAP 14/8 and 70% FiO2. Sodium 142. Potassium 3.8. Bicarb 44. BUN 36. Creatinine 1.07. Glucose 128. She is continued on DuoNeb ventilations, prednisone taper. Anticoagulated with Eliquis. Antibiotics in the form of Unasyn. NicoDerm patch in place. Remains on oral diuretics. Currently in a -4.8 L balance. Objective - Vital Signs Vital signs: Vital Signs Temp 98.2 F 12/26/23 15:05 Pulse 74 12/26/23 15:05 Resp 18 12/26/23 15:05 BP 113/59 12/26/23 15:05 Pulse Ox 93 L 12/26/23 15:05 FiO2 70 12/26/23 04:00 Intake & Output 12/25/23 12/26/23 12/26/23 18:59 06:59 18:59 Intake Total 678 240 Output Total 1450 4100 900 Balance -772 -4100 -660 Weight 136.7 kg Intake: IV 200 Ampicillin-Sulbactam 3 gm 200 In Sodium Chloride 0.9% 100 ml @ 200 mls/hr IVPB Q8HR [id number] Rx#:[id number] Oral 478 240 Output: Urine 1450 4100 900 Other: Voiding Method Indwelling Catheter Indwelling Catheter Indwelling Catheter # Bowel Movements 1 2 - Exam GENERAL EXAM: Alert, active, 63-year-old female, on 10 L nasal cannula, comfortable in no apparent distress. HEAD: Normocephalic. EYES: Normal reaction of pupils, equal size. NOSE: Clear with pink turbinates. THROAT: No erythema or exudates. NECK: No masses, no JVD. CHEST: No chest wall deformity. LUNGS: Equal air entry with bilateral scattered rhonchi. CVS: S1 and S2 normal with no audible murmur, regular rhythm. ABDOMEN: No hepatosplenomegaly, normal bowel sounds, no guarding or rigidity. SPINE: No scoliosis or deformity SKIN: No rashes CENTRAL NERVOUS SYSTEM: No focal deficits, tone is normal in all 4 extremities. EXTREMITIES: There is no peripheral edema. No clubbing, no cyanosis. Peripheral pulses are intact. - Labs CBC & Chem 7: 12/24/23 05:21 12/26/23 11:27 Labs: Abnormal Lab Results - Last 24 Hours (Table) 12/25/23 12/25/23 12/26/23 Range/Units 18:17 23:47 11:27 Chloride 93 L (98-107) mmol/L Carbon Dioxide 44 H* (22-30) mmol/L BUN 36 H (7-17) mg/dL Glucose 128 H (74-99) mg/dL POC Glucose (mg/dL) 184 H 158 H (70-110) mg/dL Calcium 8.2 L (8.4-10.2) mg/dL 12/26/23 Range/Units 12:01 Chloride (98-107) mmol/L Carbon Dioxide (22-30) mmol/L BUN (7-17) mg/dL Glucose (74-99) mg/dL POC Glucose (mg/dL) 152 H (70-110) mg/dL Calcium (8.4-10.2) mg/dL Assessment and Plan Assessment: Acute on chronic hypercapnic and hypoxic respiratory failure, currently off BiPAP and the patient has been transitioned to 10 L of oxygen by nasal cannula. Respiratory failure is multifactorial. The patient has chronic hypercapnic and hypoxic jaylon failure due to COPD/obesity hypoventilation syndrome and obstructive sleep apnea. Obstructive sleep apnea has not been officially diagnosed on this patient. Nevertheless, she has atypical features. She was supported with BiPAP and the patient is currently on 10 L nasal cannula. She was treated with a combination of bronchodilators and steroids and antibiotic and the patient is also on Lasix as the patient has obvious signs of fluid overload. Morbid obesity with a BMI of 55.1 Obstructive sleep apnea along with a component of obesity hypoventilation syndrome, clinically suspected and the patient has chronic metabolic alkalosis suggestive of chronic hypercapnic respiratory failure COPD with prolongation of exhalation of breathing is Explained wheezes, currently on a combination of bronchodilators and steroids. CHF with preserved LV function and the patient is interstitial edema, pulmonary arterial hypertension with prominent pulmonary arteries on the CT of the chest and the patient is increased edema lower extremities. The proBNP level has been mildly elevated at 2190 CO2 narcosis with diminished level of consciousness secondary to above Smoker, 1 PPD New onset A-fib with RVR, converted to normal sinus mechanism the patient is currently on oral metoprolol and anticoagulation with Eliquis. Worsening metabolic alkalosis secondary to diuresis Plan: The patient was seen and evaluated Labs and medications reviewed Continue bronchodilators, steroids Continue Unasyn Anticoagulated with Eliquis Remains on diuretics Titrate down the FiO2 as tolerated Educated regarding the importance of smoking cessation NicoDerm patch in place We will continue to follow I have personally seen and examined the patient, performed the documentation and the assessment and plan as written. Number of minutes spent on the visit: 10.
[2023-12-26 17:11] LABS: Glucose,Whole Blood 209 mg/dL (70-110)
--- NOTE | 2023-12-26 20:33 | P.PN ---
Subjective This is a pleasant 63 years of with past medical history of multiple medical problems Presents emergency room because of dyspnea, she received 1 dose of Ativan to help her get through the CAT scan. After the test patient becomes more encephalopathic and required more respiratory support and she was placed on BiPAP. Patient provided information. She follows simple commands. She has decreased breath sounds on both sides with scattered wheezing. No chest pain. Abdomen soft. Tachypneic but afebrile Labs showed mild leukocytosis of 13.3. Patient with rest of CBC is unremarkable, INR 1.1 BMP and liver function tests are unremarkable as well. pH is low 7.24 and elevated pCO2 of 81. proBNP is elevated to 190. Troponin -0.02 Influenza A and type B, RSV, SARS (coronavirus) are and detected On the preserved normal left ventricle ejection fraction of 50 to 55% but other than that it was of suboptimal study and right ventricle could not be visualized CTA of the chest showing no pulmonary embolism. Bilateral basal consolidation suspicious for infectious process. Also with evidence of CHF and cardiomegaly. With pulmonary hypertension. Patient was started on Unasyn, IV vancomycin and Solu-Medrol. 12/22/2023 Patient remains in the ICU in critical condition but improving Today his mentation improved significantly and she is awake alert but drowsy and is still mildly confused but she follows commands. She remains on BiPAP this morning with mild tachycardia and tachypnea, heart rate was 124 and a breathing rate 24. Her acidotic pH improved 7.48 and pCO2 back to reference range at 51. Repeat troponin this morning is -0.019. Chest x-ray showing cardiomegaly with CHF and pleural effusion. WBC 16.3 but patient is on steroids BMP is unremarkable Remains on Unasyn, IV Lasix 40 mg every 8 hours and Solu-Medrol 60 mg She is still on BiPAP machine 40/8 with FiO2 of 70% Patient is getting more awake she follows commands. She denies chest pain. She developed atrial fibrillation, which is a new onset. Monitor showing atrial flutter with a 3-1 block Patient currently on Cardizem drip at 10 mg and heparin drip Patient eventually oxygen saturation improved and she switched to 15 L/min via high flow nasal cannula and patient was transferred out of the ICU to the third floor at [facility] Patient remains on IV Solu-Medrol and IV Lasix and Unasyn 12/24/2023 Patient breathing stable since yesterday on 15 L oxygen via nasal cannula She is coughing a lot and Robitussin added today No chest pain She feels a little anxious and Xanax are provided for her Heart rate is better controlled and Cardizem drip was stopped and heparin drip was switched to Eliquis. Her TSH is low, we added T4 12/25/2023 Patient awake and alert Breathing is improving and oxygen requirement down to 13 L/min. No chest pain. No other new complaints She is currently on prednisone 40 mg a and IV Lasix 40 mg and Unasyn 12/26/2023 Patient awake alert, today keep to improve significantly every day with her oxygen down to 8 L/min No chest pain no other new complaint Her IV Lasix was stopped and switched to Bumex 1 mg twice daily with creatinine 0.8 went up to 1.0 and carbon dioxide was little high at 44 Patient remains on IV Unasyn and prednisone 40 mg Objective - Vital Signs Vital signs: Vital Signs Temp 97.7 F 12/26/23 08:10 Pulse 75 12/26/23 08:10 Resp 18 12/26/23 08:10 BP 107/55 12/26/23 08:10 Pulse Ox 92 L 12/26/23 08:10 FiO2 70 12/26/23 04:00 Intake & Output 12/25/23 12/26/23 12/26/23 18:59 06:59 18:59 Intake Total 678 240 Output Total 1450 4100 Balance -772 -4100 240 Weight 136.7 kg Intake: IV 200 Ampicillin-Sulbactam 3 gm 200 In Sodium Chloride 0.9% 100 ml @ 200 mls/hr IVPB Q8HR [facility] Rx#:[id number] Oral 478 240 Output: Urine 1450 4100 Other: Voiding Method Indwelling Catheter Indwelling Catheter Indwelling Catheter # Bowel Movements 1 - Exam -GENERAL: The patient is alert and oriented x3, not in any acute distress. Obese HEENT: Pupils are round and equally reacting to light. EOMI. No scleral icterus. No conjunctival pallor. Normocephalic, atraumatic. No pharyngeal erythema. No thyromegaly. CARDIOVASCULAR: S1 and S2 present. No murmurs, rubs, or gallops. -PULMONARY: Chest is clear to auscultation, bilateral scattered wheezing , no crackles. Decreased air entry on both sides ABDOMEN: Soft, nontender, nondistended, normoactive bowel sounds. No palpable o rganomegaly. MUSCULOSKELETAL: No joint swelling or deformity. EXTREMITIES: No cyanosis, clubbing, or pedal edema. NEUROLOGICAL: Gross neurological examination did not reveal any focal deficits. SKIN: No rashes. no petechiae. - Labs CBC & Chem 7: 12/24/23 05:21 12/26/23 11:27 Labs: Abnormal Lab Results - Last 24 Hours (Table) 12/25/23 12/25/23 12/26/23 Range/Units 18:17 23:47 11:27 Chloride 93 L (98-107) mmol/L Carbon Dioxide 44 H* (22-30) mmol/L BUN 36 H (7-17) mg/dL Glucose 128 H (74-99) mg/dL POC Glucose (mg/dL) 184 H 158 H (70-110) mg/dL Calcium 8.2 L (8.4-10.2) mg/dL 12/26/23 Range/Units 12:01 Chloride (98-107) mmol/L Carbon Dioxide (22-30) mmol/L BUN (7-17) mg/dL Glucose (74-99) mg/dL POC Glucose (mg/dL) 152 H (70-110) mg/dL Calcium (8.4-10.2) mg/dL Assessment and Plan Assessment: Acute diastolic CHF with preserved ejection fraction Atrial fibrillation/Flutter, new onset Acute COPD exacerbation Bilateral basal pneumonia is suspected Obesity hypoventilation syndrome Pulmonary hypertension Metabolic encephalopathy Acute hypoxemic hypercapnic failure Morbid obesity with BMI of more than 40 Respiratory acidosis Plan: continue with metoprolol and Eliquis a Continue with antibiotic, Unasyn Change IV Solu-Medrol to prednisone Continue with Lasix IV into the [facility] and pulmonary team consult Labs and medication were reviewed.. Continue same treatment. Continue with symptomatic treatment. Resume home medication. Monitor labs and vitals. DVT and GI prophylaxis. Further recommendations as per clinical course of the patient DVT prophylaxis: Subcutaneous heparin GI Prophylaxis: Ppi Prognosis is guarded
[2023-12-26 20:57] LABS: Glucose,Whole Blood 188 mg/dL (70-110)
[2023-12-26 23:36] LABS: Glucose,Whole Blood 126 mg/dL (70-110)
[2023-12-27 06:15] LABS: Glucose,Whole Blood 105 mg/dL (70-110)
[2023-12-27 09:53] LABS: African American GFR (CKD) 84 (>60 ml/min/1.73 sqM); Blood Urea Nitrogen 34 mg/dL (7-17); Calcium 8.4 mg/dL (8.4-10.2); Chloride 98 mmol/L (98-107); Glucose 100 mg/dL (74-99); Non-African American GFR(CKD) 72 (>60 ml/min/1.73 sqM); Potassium 3.7 mmol/L (3.5-5.1); Sodium 140 mmol/L (137-145)
[2023-12-27 09:59] LABS: Anion Gap 5 mmol/L
[2023-12-27 10:00] LABS: Carbon Dioxide 37 mmol/L (22-30)
--- NOTE | 2023-12-27 10:54 | P.PN ---
Subjective This is a pleasant 63 years of with past medical history of multiple medical problems Presents emergency room because of dyspnea, she received 1 dose of Ativan to help her get through the CAT scan. After the test patient becomes more encephalopathic and required more respiratory support and she was placed on BiPAP. Patient provided information. She follows simple commands. She has decreased breath sounds on both sides with scattered wheezing. No chest pain. Abdomen soft. Tachypneic but afebrile Labs showed mild leukocytosis of 13.3. Patient with rest of CBC is unremarkable, INR 1.1 BMP and liver function tests are unremarkable as well. pH is low 7.24 and elevated pCO2 of 81. proBNP is elevated to 190. Troponin -0.02 Influenza A and type B, RSV, SARS (coronavirus) are and detected On the preserved normal left ventricle ejection fraction of 50 to 55% but other than that it was of suboptimal study and right ventricle could not be visualized CTA of the chest showing no pulmonary embolism. Bilateral basal consolidation suspicious for infectious process. Also with evidence of CHF and cardiomegaly. With pulmonary hypertension. Patient was started on Unasyn, IV vancomycin and Solu-Medrol. 12/22/2023 Patient remains in the ICU in critical condition but improving Today his mentation improved significantly and she is awake alert but drowsy and is still mildly confused but she follows commands. She remains on BiPAP this morning with mild tachycardia and tachypnea, heart rate was 124 and a breathing rate 24. Her acidotic pH improved 7.48 and pCO2 back to reference range at 51. Repeat troponin this morning is -0.019. Chest x-ray showing cardiomegaly with CHF and pleural effusion. WBC 16.3 but patient is on steroids BMP is unremarkable Remains on Unasyn, IV Lasix 40 mg every 8 hours and Solu-Medrol 60 mg She is still on BiPAP machine 40/8 with FiO2 of 70% Patient is getting more awake she follows commands. She denies chest pain. She developed atrial fibrillation, which is a new onset. Monitor showing atrial flutter with a 3-1 block Patient currently on Cardizem drip at 10 mg and heparin drip Patient eventually oxygen saturation improved and she switched to 15 L/min via high flow nasal cannula and patient was transferred out of the ICU to the third floor at [facility] Patient remains on IV Solu-Medrol and IV Lasix and Unasyn 12/24/2023 Patient breathing stable since yesterday on 15 L oxygen via nasal cannula She is coughing a lot and Robitussin added today No chest pain She feels a little anxious and Xanax are provided for her Heart rate is better controlled and Cardizem drip was stopped and heparin drip was switched to Eliquis. Her TSH is low, we added T4 12/25/2023 Patient awake and alert Breathing is improving and oxygen requirement down to 13 L/min. No chest pain. No other new complaints She is currently on prednisone 40 mg a and IV Lasix 40 mg and Unasyn 12/26/2023 Patient awake alert, today keep to improve significantly every day with her oxygen down to 8 L/min No chest pain no other new complaint Her IV Lasix was stopped and switched to Bumex 1 mg twice daily with creatinine 0.8 went up to 1.0 and carbon dioxide was little high at 44 Patient remains on IV Unasyn and prednisone 40 mg 12/27/[address], her oxygen requirements keep improvement down to 7 L today with saturation of 94% No chest pain No new complaint Patient remains on oral Bumex 1 mg twice daily, IV Unasyn and prednisone 40 mg Objective - Vital Signs Vital signs: Vital Signs Temp 98.0 F 12/27/23 08:05 Pulse 77 12/27/23 10:28 Resp 18 12/27/23 10:28 BP 104/58 12/27/23 08:05 Pulse Ox 94 L 12/27/23 08:05 FiO2 70 12/27/23 03:51 Intake & Output 12/26/23 12/27/23 12/27/23 18:59 06:59 18:59 Intake Total 480 20 Output Total 1350 950 Balance -870 -930 Weight 139.9 kg Intake: IV 20 Invasive Line 3 20 Oral 480 Output: Urine 1350 950 Other: Voiding Method Indwelling Catheter Indwelling Catheter Indwelling Catheter # Bowel Movements 2 - Exam -GENERAL: The patient is alert and oriented x3, not in any acute distress. Obese HEENT: Pupils are round and equally reacting to light. EOMI. No scleral icterus. No conjunctival pallor. Normocephalic, atraumatic. No pharyngeal erythema. No thyromegaly. CARDIOVASCULAR: S1 and S2 present. No murmurs, rubs, or gallops. -PULMONARY: Chest is clear to auscultation, bilateral scattered wheezing , no crackles. Decreased air entry on both sides ABDOMEN: Soft, nontender, nondistended, normoactive bowel sounds. No palpable o rganomegaly. MUSCULOSKELETAL: No joint swelling or deformity. EXTREMITIES: No cyanosis, clubbing, or pedal edema. NEUROLOGICAL: Gross neurological examination did not reveal any focal deficits. SKIN: No rashes. no petechiae. - Labs CBC & Chem 7: 12/24/23 05:21 12/27/23 09:07 Labs: Abnormal Lab Results - Last 24 Hours (Table) 12/26/23 12/26/23 12/26/23 Range/Units 11:27 12:01 17:09 Chloride 93 L (98-107) mmol/L Carbon Dioxide 44 H* (22-30) mmol/L BUN 36 H (7-17) mg/dL Glucose 128 H (74-99) mg/dL POC Glucose (mg/dL) 152 H 209 H (70-110) mg/dL Calcium 8.2 L (8.4-10.2) mg/dL 12/26/23 12/26/23 12/27/23 Range/Units 20:55 23:33 09:07 Chloride (98-107) mmol/L Carbon Dioxide 37 H (22-30) mmol/L BUN 34 H (7-17) mg/dL Glucose 100 H (74-99) mg/dL POC Glucose (mg/dL) 188 H 126 H (70-110) mg/dL Calcium (8.4-10.2) mg/dL Assessment and Plan Assessment: Acute diastolic CHF with preserved ejection fraction Atrial fibrillation/Flutter, new onset Acute COPD exacerbation Bilateral basal pneumonia is suspected Obesity hypoventilation syndrome Pulmonary hypertension Metabolic encephalopathy Acute hypoxemic hypercapnic failure Morbid obesity with BMI of more than 40 Respiratory acidosis Plan: continue with metoprolol and Eliquis a Continue with antibiotic, Unasyn Change IV Solu-Medrol to prednisone Continue with Lasix IV into the [facility] and pulmonary team consult Labs and medication were reviewed.. Continue same treatment. Continue with symptomatic treatment. Resume home medication. Monitor labs and vitals. DVT and GI prophylaxis. Further recommendations as per clinical course of the patient DVT prophylaxis: Subcutaneous heparin GI Prophylaxis: Ppi Prognosis is guarded
[2023-12-27 11:54] LABS: Glucose,Whole Blood 128 mg/dL (70-110)
--- NOTE | 2023-12-27 12:49 | P.PN ---
Subjective HISTORY OF PRESENT ILLNESS: This is a 63-year-old female patient with a past medical history significant for smoking and COPD and morbid obesity. No prior history of coronary artery disease or congestive heart failure or cardiac arrhythmia. She is also morbidly obese. The patient is currently in the intensive care unit. She is on BiPAP and she is extremely poor historian and lethargic. History was taken from the chart as well as from the nurse taking care of the patient. The patient presented to the hospital with a few weeks progressive shortness of breath associated with bilateral lower extremities edema. No cough and no sputum pr oduction. No fever and no chills. No indication of any chest pain or chest discomfort. She was hypoxic when she presented with oxygen saturation in the 60s. She was started on BiPAP and she was admitted to the intensive care unit. Currently she is hemodynamically stable. She underwent further workup including an EKG and that showed sinus mechanism with no significant ST or T wave abnormalities and chest x-ray showed pulmonary vascular congestions and pleural effusion. CT scan of the chest came in to be unremarkable for pulmonary embolism after D-dimer came in to be abnormal. Beside that her WBC was elevated. Renal function and electrolytes were within normal limits. No troponin was performed. In the morning she was noted to be in "atrial fibrillation". Reviewing the EKG showed only sinus mechanism with PACs. The echo revealed normal LV systolic function but the echo was technically very difficult. On examination she has distant heart sounds with regular rhythm and diminished breathing sounds bilaterally and bilateral lower extremities edema. Currently she is on Lasix IV. December 23, 2023 The patient was seen and evaluated this morning. She is on BiPAP at this point. She is hemodynamically stable. She went into atrial fibrillation/atrial flutter with overall controlled heart rate on the current dose of Cardizem IV. Beside that she is on heparin IV. She has been diuresing well on the current dose of Lasix IV. From the cardiovascular standpoint of view, we will continue the current medical regimen and continue heparin IV and consider switching the patient to oral anticoagulation down the line as well as start the patient on beta-silvia and try to wean her from Cardizem IV. The examination is remarkable for bilateral lower extremities edema with diminished breathing sounds bilaterally and irregular rhythm. December 24, 2023 The patient was seen and evaluated this morning. She continues to be hypoxic requiring high flow oxygen. She continues to be in failure in addition to COPD exacerbation. She is in sinus mechanism. The echo showed normal LV systolic function with examination showed distant heart sounds with diminished breathing sounds bilaterally and bilateral lower extremities edema December 25, 2023 The patient was seen and evaluated this morning. She continues to be hypoxic. Her shortness of breath has been somewhat better. No pain in the chest. She did have an episode of A-fib with RVR yesterday and subsequently converted to normal sinus mechanism. She has been maintaining normal sinus mechanism. She has been on oral anticoagulation with I am going to increase the dose of metoprolol to 50 mg p.o. twice daily. Meanwhile continue the current dose of Lasix IV and consider obtaining a blood work in the morning. The examination is remarkable for regular rhythm with a distant heart sounds and mild bilateral expiratory wheezing and mild bilateral upper and lower extremities edema. 12/26/2023 Patient examined this morning at the bedside. Patient currently denies chest pain or pressure. She currently denies shortness of breath. Patient is currently on 8 L nasal cannula. Telemetry reveals sinus mechanism with heart rate in the 70s. She is currently on IV Lasix 40 mg every 8 hours. Urine output over the last 24 hours is over 5 L. 12/27/2023 Patient examined this morning at the bedside. Patient's family is present. Patient denies chest pain or pressure. She denies shortness of breath. She is resting comfortably at the time of examination. She remains on oral diuretics. Vital signs are stable. She remains on 7 L high flow nasal cannula PHYSICAL EXAM: VITAL SIGNS: Reviewed. GENERAL: Well-developed in no acute distress. NECK: Supple. No JVD or thyromegaly LUNGS: Respirations even and unlabored. Lungs diminished at the bases HEART: Regular rate and rhythm. S1 and S2 heard. EXTREMITIES: Normal range of motion. No clubbing or cyanosis. Peripheral pulses intact. Bilateral lower extremity edema noted ASSESSMENT: Shortness of breath Acute hypoxic respiratory failure requiring supplemental oxygen Acute COPD exacerbation Acute on chronic heart failure with preserved EF New onset paroxysmal atrial fibrillation, currently maintaining sinus mechanism Hypertension Hyperlipidemia Morbid obesity: BMI 55.1 Obstructive sleep apnea Nicotine dependence PLAN: Continue current cardiac medications Wean oxygen as tolerated to maintain oxygen saturations greater than 92% Patient may need to be evaluated for home O2 Continue telemetry monitoring [facility] Patient is currently stable from a cardiac standpoint with no further inpatient recommendations We will sign off. Please reconsult if needed. Nurse practitioner note has been reviewed by physician. Signing provider agrees with the documented findings, assessment, and plan of care documented by [facility] as a scribe. Objective - Vital Signs Vital signs: Vital Signs Temp 98.0 F 12/27/23 08:05 Pulse 72 12/27/23 11:57 Resp 18 12/27/23 11:47 BP 111/76 12/27/23 11:47 Pulse Ox 92 L 12/27/23 11:47 FiO2 70 12/27/23 03:51 Intake & Output 12/26/23 12/27/23 12/27/23 18:59 06:59 18:59 Intake Total 480 20 Output Total 1350 950 Balance -870 -930 Weight 139.9 kg Intake: IV 20 Invasive Line 3 20 Oral 480 Output: Urine 1350 950 Other: Voiding Method Indwelling Catheter Indwelling Catheter Indwelling Catheter # Bowel Movements 2 - Labs CBC & Chem 7: 12/24/23 05:21 12/27/23 09:07 Labs: Abnormal Lab Results - Last 24 Hours (Table) 12/26/23 12/26/23 12/26/23 Range/Units 17:09 20:55 23:33 Carbon Dioxide (22-30) mmol/L BUN (7-17) mg/dL Glucose (74-99) mg/dL POC Glucose (mg/dL) 209 H 188 H 126 H (70-110) mg/dL 12/27/23 12/27/23 Range/Units 09:07 11:52 Carbon Dioxide 37 H (22-30) mmol/L BUN 34 H (7-17) mg/dL Glucose 100 H (74-99) mg/dL POC Glucose (mg/dL) 128 H (70-110) mg/dL
[2023-12-27 13:18] VITALS: BMI 56.4
--- NOTE | 2023-12-27 15:02 | P.PN ---
Subjective Progress Note Date: 12/27/23 Principal diagnosis: Acute on chronic hypoxic and hypercapnic respiratory failure This is a morbidly obese 63-year-old female patient with typical features of obstructive sleep apnea and obesity hypoventilation syndrome. The patient came in to the emergency department because of worsening shortness of breath. While undergoing a CAT scan of the chest, the patient also was given a dose of Ativan. Subsequently, the patient became obtunded, lethargic and sleepy. Blood gas s howed hypercapnic respiratory failure probably a component of an acute on top of chronic hypercapnic respiratory failure with a pH of 7.24 with a pCO2 of 88 and pO2 of 47. Based on that, the patient was placed on a BiPAP at a pressure of 12 over 5 cm of water. Currently, the BiPAP is running and the patient is on FiO2 100% which is gradually being weaned off. Most recent blood gas showed a pH of 7.28 with a pCO2 of 81 and pO2 of 104. She is able to generate a tidal volume of 3 50-400. She underwent a CT angiogram of the chest that was suboptimal and there was no evidence of any central pulmonary embolism. There was anasarca with mild cardiomegaly and pulmonary arterial hypertension and mild component of CHF as the patient had upper lung septal lines being more prominent and thickened. The patient also had some atelectatic changes and early pneumonitis in the lower lobes bilaterally. Echocardiogram was again suboptimal due to her body habitus. The patient had a preserved LV function without any valvular abnormalities. Blood work shows chronic metabolic alkalosis with a serum bicarb of 36 and a sodium level of 142 and a potassium level of 4.2. WBC count of 13.3 with a hemoglobin 14.2 and a platelet count of 255. The viral panel has been negative. proBNP level is 2190. Troponins are 0.02. Smoking status is not known. On today's evaluation of 12/22/2023, the patient is being seen for a follow-up. The patient is more alert compared to yesterday. Overnight, the patient was kept on a BiPAP essentially on the same setting of 14 over 8 cm of water. FiO2 remains at 100% and the patient is not showing significant improvement in oxygenation. Nevertheless, neurologically she is more awake compared to yesterday. Follow-up blood gas was done And this was on the current BiPAP setting and it showed a pH of 7.47 with a pCO2 of 51 and a pO2 of 56 and there is improvement in the patient's hypercapnia. The patient is able to follow simple commands. She is able to communicate. The repeat chest x-ray from today was reviewed and there is cardiomegaly and pulm vascular congestion and small bilateral pleural effusion. The patient remains on diuretics and she is on Lasix 40 mg IV every 8 hours. Overall fluid balance is -2.7 L over the past 24 hours. Her white cell count today is at 16.3 with hemoglobin 15.6 and a platelet count of 207. Sodium is at 143, BUN is at 21 with a creatinine of 0.6 and a potassium level is at 4.7 and a serum bicarb is at 35. As mentioned, troponins are negative and the is at 0.02 and 0.01 respectively. The viral panel has been negative. She remains on bronchodilators. She remains on IV Solu-Medrol 60 mg every 6 hours and she is also on empiric antibiotic coverage with IV Unasyn. On today's evaluation of 12/23/2023, I am seeing the patient for a follow-up. The patient is awake and alert and communicating at this point in time. Note that she was in hypercapnic respiratory failure and initially the patient was treated with a BiPAP at a pressure of 14 over 8 cm of water and subsequently the patient was transitioned to high flow oxygen at 15 L/min nasal cannula. Her current pulse ox is around 87 to 88%. She remains on diuretics and the patient remains in negative fluid balance of 2.7 L over the past 24 hours. She remains also on bronchodilators and steroids. She seems to be less bronchospastic and wheezy. She is arousable and she is communicating at this point in time. Note that the patient also had an episode of A-fib RVR at around 5 PM yesterday afternoon. The patient was started on Cardizem and the patient is currently on metoprolol for rate control and the dose of 25 mg p.o. twice a day. The patient was also started on IV heparin. The patient remains on IV Unasyn. WBC count is 14.5 with hemoglobin 13 and a platelet count of 180. BUN is 36 with a creatinine of 0.69 and his sodium levels at 140. Procalcitonin level was at 0.06, essentially nonelevated. Echocardiogram that was limited showed a preserved LV function. No signs of any hypercapnic respiratory failure. She is awake and alert and communicating at this point in time. On today's evaluation of 12/24/2023, the patient is being seen for a follow-up. Awake and alert. No signs of any CO2 narcosis. She remains on high flow oxygen at 15 L with a pulse ox barely above 88%. She continues to have lower extremity edema. She did have bouts of delirium and hallucinations yesterday. This is attributed to systemic steroids and the patient will be taken off the IV Solu- Medrol and started on a prednisone burst taper. She remains on Unasyn. She remains on Lasix 40 mg IV every 8 hours. She is also on beta-blockers with meto prolol 25 mg p.o. twice daily. Blood work from today shows a WBC count of 16.9 with a hemoglobin 13 and a platelet count of 152. Her TSH was also low. Will need to check a free T4. Her cardiac rhythm is sinus at this point in time. LV function was normal. She reports some improvement in lower extremity edema. She is obviously this bronchospastic and wheezy. On today's evaluation of 12/25/2023, the patient is still requiring oxygen and her FiO2 gradually being weaned off and the patient is currently on 30 L of O2 nasal cannula. Fluid balance remains -1.2 L over the past 24 hours. Still has lower extremity edema the patient remains on IV Lasix 40 mg every 8 hours. Remains on Unasyn. Remains on bronchodilators. Remains on steroids and the patient is currently on a prednisone burst taper. Sodium is at 142 with a potassium level of 3.7, chloride is 95 with a bicarb level is at 40. The patient has developed some metabolic alkalosis. Will add 2 doses of Diamox for the next 24 hours. No altered mentation. The patient is seen today December 26, 2023 in follow-up on the selective care unit. She is currently sitting up in a chair at the bedside. Awake and alert in no acute distress. She is currently on 10 L high flow nasal cannula to maintain O2 saturations in the 90s. She is alternating with BiPAP 14/8 and 70% FiO2. Sodium 142. Potassium 3.8. Bicarb 44. BUN 36. Creatinine 1.07. Glucose 128. She is continued on DuoNeb ventilations, prednisone taper. Anticoagulated with Eliquis. Antibiotics in the form of Unasyn. NicoDerm patch in place. Remains on oral diuretics. Currently in a -4.8 L balance. Patient was reevaluated today on 12/27/2023, patient is doing relatively well, remains on 7 L high flow, titrated from yesterday 10 L high flow nasal cannula, patient is feeling better, breathing easier, remains on DuoNeb updrafts, prednisone, she is also on antibiotics in the form of Unasyn, and she is also receiving oral diuretics. Her labs today showed relatively normal electrolytes, bicarb is 37, and blood sugar is 128 last chest x-ray showed evidence of mild interstitial edema/congestive heart failure and this was a few days ago, will repeat chest x-ray in a.m. Objective - Vital Signs Vital signs: Vital Signs Temp 98.0 F 12/27/23 08:05 Pulse 68 12/27/23 14:47 Resp 18 12/27/23 14:47 BP 111/76 12/27/23 11:47 Pulse Ox 92 L 12/27/23 11:47 FiO2 70 12/27/23 03:51 Intake & Output 12/26/23 12/27/23 12/27/23 18:59 06:59 18:59 Intake Total 480 20 Output Total 1350 950 800 Balance -870 -930 -800 Weight 139.9 kg Intake: IV 20 Invasive Line 3 20 Oral 480 Output: Urine 1350 950 800 Other: Voiding Method Indwelling Catheter Indwelling Catheter Indwelling Catheter # Bowel Movements 2 - Exam GENERAL EXAM: Reveals 63-year-old female obese, on 7 L high flow nasal cannula, in no distress HEAD: Normocephalic. EYES: Normal reaction of pupils, equal size. NOSE: Clear with pink turbinates. THROAT: No erythema or exudates. NECK: No masses, no JVD. CHEST: No chest wall deformity. LUNGS: Crackles and rhonchi noted bilaterally. CVS: S1 and S2 normal with no audible murmur, regular rhythm. ABDOMEN: No hepatosplenomegaly, normal bowel sounds, no guarding or rigidity. SKIN: No rashes CENTRAL NERVOUS SYSTEM: No focal deficits, tone is normal in all 4 extremities. EXTREMITIES: 1+ bipedal peripheral edema. No clubbing, no cyanosis. Peripheral pulses are intact. - Labs CBC & Chem 7: 12/24/23 05:21 12/27/23 09:07 Labs: Abnormal Lab Results - Last 24 Hours (Table) 12/26/23 12/26/23 12/26/23 Range/Units 17:09 20:55 23:33 Carbon Dioxide (22-30) mmol/L BUN (7-17) mg/dL Glucose (74-99) mg/dL POC Glucose (mg/dL) 209 H 188 H 126 H (70-110) mg/dL 12/27/23 12/27/23 Range/Units 09:07 11:52 Carbon Dioxide 37 H (22-30) mmol/L BUN 34 H (7-17) mg/dL Glucose 100 H (74-99) mg/dL POC Glucose (mg/dL) 128 H (70-110) mg/dL Assessment and Plan Assessment: Impression: Acute on chronic hypoxic and hypercapnic respiratory failure, multifactorial Acute exacerbation of COPD Obstructive sleep apnea syndrome Morbid obesity Obesity/hypoventilation syndrome Acute diastolic congestive heart failure/preserved ejection fraction Tobacco dependence syndrome Recommendation: Continue bronchodilators Continue steroids Continue diuretics Continue to titrate oxygen accordingly Repeat chest x-ray in a.m. Continue eliquis, patient came in with new onset paroxysmal atrial fibrillation Will continue to follow, not clear for discharge at this point yet. Time with Patient: Less than 30
[2023-12-27 16:43] LABS: Glucose,Whole Blood 219 mg/dL (70-110)
[2023-12-27] MEDS: INSULIN ASPART (NovoLOG) 100 UNIT/ML VIAL SQ SCH (17:05)
[2023-12-27 20:31] LABS: Glucose,Whole Blood 144 mg/dL (70-110)
[2023-12-28 06:11] LABS: Glucose,Whole Blood 103 mg/dL (70-110)
[2023-12-28] MEDS: DILTIAZEM 125 MG in SODIUM CHLORIDE 0.9% 100 ML IV SCH (08:32)
--- NOTE | 2023-12-28 11:15 | XR ---
EXAMINATION TYPE: XR chest 1V portable DATE OF EXAM: 12/28/2023 Comparison: 12/23/2023 Clinical History: 63-year-old female CHF Findings: Heart is moderately enlarged. Mild interstitial density. Increased density at the left base possibly in part due to underpenetration. Impression: Similar mild pulmonary vascular congestion. Possible developing small left effusion.
[2023-12-28 11:51] LABS: Glucose,Whole Blood 125 mg/dL (70-110)
--- NOTE | 2023-12-28 15:32 | P.PN ---
Subjective Progress Note Date: 12/28/23 Principal diagnosis: Acute on chronic hypoxic and hypercapnic respiratory failure This is a morbidly obese 63-year-old female patient with typical features of obstructive sleep apnea and obesity hypoventilation syndrome. The patient came in to the emergency department because of worsening shortness of breath. While undergoing a CAT scan of the chest, the patient also was given a dose of Ativan. Subsequently, the patient became obtunded, lethargic and sleepy. Blood gas s howed hypercapnic respiratory failure probably a component of an acute on top of chronic hypercapnic respiratory failure with a pH of 7.24 with a pCO2 of 88 and pO2 of 47. Based on that, the patient was placed on a BiPAP at a pressure of 12 over 5 cm of water. Currently, the BiPAP is running and the patient is on FiO2 100% which is gradually being weaned off. Most recent blood gas showed a pH of 7.28 with a pCO2 of 81 and pO2 of 104. She is able to generate a tidal volume of 3 50-400. She underwent a CT angiogram of the chest that was suboptimal and there was no evidence of any central pulmonary embolism. There was anasarca with mild cardiomegaly and pulmonary arterial hypertension and mild component of CHF as the patient had upper lung septal lines being more prominent and thickened. The patient also had some atelectatic changes and early pneumonitis in the lower lobes bilaterally. Echocardiogram was again suboptimal due to her body habitus. The patient had a preserved LV function without any valvular abnormalities. Blood work shows chronic metabolic alkalosis with a serum bicarb of 36 and a sodium level of 142 and a potassium level of 4.2. WBC count of 13.3 with a hemoglobin 14.2 and a platelet count of 255. The viral panel has been negative. proBNP level is 2190. Troponins are 0.02. Smoking status is not known. On today's evaluation of 12/22/2023, the patient is being seen for a follow-up. The patient is more alert compared to yesterday. Overnight, the patient was kept on a BiPAP essentially on the same setting of 14 over 8 cm of water. FiO2 remains at 100% and the patient is not showing significant improvement in oxygenation. Nevertheless, neurologically she is more awake compared to yesterday. Follow-up blood gas was done And this was on the current BiPAP setting and it showed a pH of 7.47 with a pCO2 of 51 and a pO2 of 56 and there is improvement in the patient's hypercapnia. The patient is able to follow simple commands. She is able to communicate. The repeat chest x-ray from today was reviewed and there is cardiomegaly and pulm vascular congestion and small bilateral pleural effusion. The patient remains on diuretics and she is on Lasix 40 mg IV every 8 hours. Overall fluid balance is -2.7 L over the past 24 hours. Her white cell count today is at 16.3 with hemoglobin 15.6 and a platelet count of 207. Sodium is at 143, BUN is at 21 with a creatinine of 0.6 and a potassium level is at 4.7 and a serum bicarb is at 35. As mentioned, troponins are negative and the is at 0.02 and 0.01 respectively. The viral panel has been negative. She remains on bronchodilators. She remains on IV Solu-Medrol 60 mg every 6 hours and she is also on empiric antibiotic coverage with IV Unasyn. On today's evaluation of 12/23/2023, I am seeing the patient for a follow-up. The patient is awake and alert and communicating at this point in time. Note that she was in hypercapnic respiratory failure and initially the patient was treated with a BiPAP at a pressure of 14 over 8 cm of water and subsequently the patient was transitioned to high flow oxygen at 15 L/min nasal cannula. Her current pulse ox is around 87 to 88%. She remains on diuretics and the patient remains in negative fluid balance of 2.7 L over the past 24 hours. She remains also on bronchodilators and steroids. She seems to be less bronchospastic and wheezy. She is arousable and she is communicating at this point in time. Note that the patient also had an episode of A-fib RVR at around 5 PM yesterday afternoon. The patient was started on Cardizem and the patient is currently on metoprolol for rate control and the dose of 25 mg p.o. twice a day. The patient was also started on IV heparin. The patient remains on IV Unasyn. WBC count is 14.5 with hemoglobin 13 and a platelet count of 180. BUN is 36 with a creatinine of 0.69 and his sodium levels at 140. Procalcitonin level was at 0.06, essentially nonelevated. Echocardiogram that was limited showed a preserved LV function. No signs of any hypercapnic respiratory failure. She is awake and alert and communicating at this point in time. On today's evaluation of 12/24/2023, the patient is being seen for a follow-up. Awake and alert. No signs of any CO2 narcosis. She remains on high flow oxygen at 15 L with a pulse ox barely above 88%. She continues to have lower extremity edema. She did have bouts of delirium and hallucinations yesterday. This is attributed to systemic steroids and the patient will be taken off the IV Solu- Medrol and started on a prednisone burst taper. She remains on Unasyn. She remains on Lasix 40 mg IV every 8 hours. She is also on beta-blockers with meto prolol 25 mg p.o. twice daily. Blood work from today shows a WBC count of 16.9 with a hemoglobin 13 and a platelet count of 152. Her TSH was also low. Will need to check a free T4. Her cardiac rhythm is sinus at this point in time. LV function was normal. She reports some improvement in lower extremity edema. She is obviously this bronchospastic and wheezy. On today's evaluation of 12/25/2023, the patient is still requiring oxygen and her FiO2 gradually being weaned off and the patient is currently on 30 L of O2 nasal cannula. Fluid balance remains -1.2 L over the past 24 hours. Still has lower extremity edema the patient remains on IV Lasix 40 mg every 8 hours. Remains on Unasyn. Remains on bronchodilators. Remains on steroids and the patient is currently on a prednisone burst taper. Sodium is at 142 with a potassium level of 3.7, chloride is 95 with a bicarb level is at 40. The patient has developed some metabolic alkalosis. Will add 2 doses of Diamox for the next 24 hours. No altered mentation. The patient is seen today December 26, 2023 in follow-up on the selective care unit. She is currently sitting up in a chair at the bedside. Awake and alert in no acute distress. She is currently on 10 L high flow nasal cannula to maintain O2 saturations in the 90s. She is alternating with BiPAP 14/8 and 70% FiO2. Sodium 142. Potassium 3.8. Bicarb 44. BUN 36. Creatinine 1.07. Glucose 128. She is continued on DuoNeb ventilations, prednisone taper. Anticoagulated with Eliquis. Antibiotics in the form of Unasyn. NicoDerm patch in place. Remains on oral diuretics. Currently in a -4.8 L balance. Patient was reevaluated today on 12/27/2023, patient is doing relatively well, remains on 7 L high flow, titrated from yesterday 10 L high flow nasal cannula, patient is feeling better, breathing easier, remains on DuoNeb updrafts, prednisone, she is also on antibiotics in the form of Unasyn, and she is also receiving oral diuretics. Her labs today showed relatively normal electrolytes, bicarb is 37, and blood sugar is 128 last chest x-ray showed evidence of mild interstitial edema/congestive heart failure and this was a few days ago, will repeat chest x-ray in a.m. Patient was reevaluated today on 12/28/2023, clinically the patient is feeling much better, breathing a lot easier, however still requiring relatively high FiO2, she is on 5 L nasal cannula with O2 sats of 87%, patient is still requiring at least 7 L/min for maintaining adequate O2 saturation. Chest x-ray today continues to show pulmonary vascular congestion and possibly a small left pleural effusion, patient remains on diuretics, and she is responding well to diuresis patient has been in negative balance all along since admission. Basic metabolic profile is normal except for bicarb of 37, patient likely has chronic metabolic alkalosis compensating for her chronic respiratory acidosis and this is also getting worse with diuresis. Objective - Vital Signs Vital signs: Vital Signs Temp 97.2 F L 12/28/23 00:00 Pulse 80 12/28/23 15:19 Resp 18 12/28/23 15:19 BP 111/67 12/28/23 15:19 Pulse Ox 87 L 12/28/23 15:19 FiO2 50 12/28/23 02:52 Intake & Output 12/27/23 12/28/23 12/28/23 18:59 06:59 18:59 Intake Total 118 Output Total 800 1600 1000 Balance -800 -1600 -882 Weight 139.9 kg 139.4 kg Intake: Oral 118 Output: Urine 800 1600 1000 Uretheral (Watkins) 700 1000 Other: Voiding Method Indwelling Catheter Indwelling Catheter Indwelling Catheter # Voids 1 # Bowel Movements 1 1 - Exam GENERAL EXAM: Reveals 63-year-old female obese, on 7 L high flow nasal cannula, in no distress HEAD: Normocephalic. EYES: Normal reaction of pupils, equal size. NOSE: Clear with pink turbinates. THROAT: No erythema or exudates. NECK: No masses, no JVD. CHEST: No chest wall deformity. LUNGS: Crackles and rhonchi noted bilaterally. CVS: S1 and S2 normal with no audible murmur, regular rhythm. ABDOMEN: No hepatosplenomegaly, normal bowel sounds, no guarding or rigidity. SKIN: No rashes CENTRAL NERVOUS SYSTEM: No focal deficits, tone is normal in all 4 extremities. EXTREMITIES: 1+ bipedal peripheral edema. No clubbing, no cyanosis. Peripheral pulses are intact. - Labs CBC & Chem 7: 12/24/23 05:21 12/27/23 09:07 Labs: Abnormal Lab Results - Last 24 Hours (Table) 12/27/23 12/27/23 12/28/23 Range/Units 16:40 20:30 11:50 POC Glucose (mg/dL) 219 H 144 H 125 H (70-110) mg/dL Assessment and Plan Assessment: Impression: Acute on chronic hypoxic and hypercapnic respiratory failure, multifactorial Acute exacerbation of COPD Obstructive sleep apnea syndrome Morbid obesity Obesity/hypoventilation syndrome Acute diastolic congestive heart failure/preserved ejection fraction Tobacco dependence syndrome Recommendation: Continue bronchodilators Continue steroids Discontinue antibiotics Continue diuretics, will add Diamox Continue to titrate oxygen accordingly Follow-up chest x-ray this morning was reviewed, continues to show some evidence of congestive heart failure and left pleural effusion Continue eliquis, patient came in with new onset paroxysmal atrial fibrillation Will continue to follow, patient is being considered for transfer to rehab/ECF Time with Patient: Less than 30
[2023-12-28 16:36] LABS: Glucose,Whole Blood 158 mg/dL (70-110)
[2023-12-28] MEDS: acetaZOLAMIDE 250 MG TAB PO SCH (19:55)
[2023-12-28 20:13] LABS: Glucose,Whole Blood 153 mg/dL (70-110)
--- NOTE | 2023-12-28 20:16 | P.PN ---
Subjective This is a pleasant 63 years of with past medical history of multiple medical problems Presents emergency room because of dyspnea, she received 1 dose of Ativan to help her get through the CAT scan. After the test patient becomes more encephalopathic and required more respiratory support and she was placed on BiPAP. Patient provided information. She follows simple commands. She has decreased breath sounds on both sides with scattered wheezing. No chest pain. Abdomen soft. Tachypneic but afebrile Labs showed mild leukocytosis of 13.3. Patient with rest of CBC is unremarkable, INR 1.1 BMP and liver function tests are unremarkable as well. pH is low 7.24 and elevated pCO2 of 81. proBNP is elevated to 190. Troponin -0.02 Influenza A and type B, RSV, SARS (coronavirus) are and detected On the preserved normal left ventricle ejection fraction of 50 to 55% but other than that it was of suboptimal study and right ventricle could not be visualized CTA of the chest showing no pulmonary embolism. Bilateral basal consolidation suspicious for infectious process. Also with evidence of CHF and cardiomegaly. With pulmonary hypertension. Patient was started on Unasyn, IV vancomycin and Solu-Medrol. 12/22/2023 Patient remains in the ICU in critical condition but improving Today his mentation improved significantly and she is awake alert but drowsy and is still mildly confused but she follows commands. She remains on BiPAP this morning with mild tachycardia and tachypnea, heart rate was 124 and a breathing rate 24. Her acidotic pH improved 7.48 and pCO2 back to reference range at 51. Repeat troponin this morning is -0.019. Chest x-ray showing cardiomegaly with CHF and pleural effusion. WBC 16.3 but patient is on steroids BMP is unremarkable Remains on Unasyn, IV Lasix 40 mg every 8 hours and Solu-Medrol 60 mg She is still on BiPAP machine 40/8 with FiO2 of 70% Patient is getting more awake she follows commands. She denies chest pain. She developed atrial fibrillation, which is a new onset. Monitor showing atrial flutter with a 3-1 block Patient currently on Cardizem drip at 10 mg and heparin drip Patient eventually oxygen saturation improved and she switched to 15 L/min via high flow nasal cannula and patient was transferred out of the ICU to the third floor at [facility] Patient remains on IV Solu-Medrol and IV Lasix and Unasyn 12/24/2023 Patient breathing stable since yesterday on 15 L oxygen via nasal cannula She is coughing a lot and Robitussin added today No chest pain She feels a little anxious and Xanax are provided for her Heart rate is better controlled and Cardizem drip was stopped and heparin drip was switched to Eliquis. Her TSH is low, we added T4 12/25/2023 Patient awake and alert Breathing is improving and oxygen requirement down to 13 L/min. No chest pain. No other new complaints She is currently on prednisone 40 mg a and IV Lasix 40 mg and Unasyn 12/26/2023 Patient awake alert, today keep to improve significantly every day with her oxygen down to 8 L/min No chest pain no other new complaint Her IV Lasix was stopped and switched to Bumex 1 mg twice daily with creatinine 0.8 went up to 1.0 and carbon dioxide was little high at 44 Patient remains on IV Unasyn and prednisone 40 mg 12/27/[address]23 [address] In [address], her oxygen requirements keep improvement down to 7 L today with saturation of 94% No chest pain No new complaint Patient remains on oral Bumex 1 mg twice daily, IV Unasyn and prednisone 40 mg 12/28/2023 Patient is still on 6 L oxygen, improving Chest x-ray still showing evidence of mild CHF and congestion She is on Bumex 1 mg twice daily Diamox added Antibiotics Unasyn was discontinued. She is on prednisone 40 mg. Objective - Vital Signs Vital signs: Vital Signs Temp 97.2 F L 12/28/23 00:00 Pulse 66 12/28/23 12:19 Resp 16 12/28/23 12:19 BP 93/56 12/28/23 04:00 Pulse Ox 87 L 12/28/23 04:00 FiO2 50 12/28/23 02:52 Intake & Output 12/27/23 12/28/23 12/28/23 18:59 06:59 18:59 Output Total 800 1600 1000 Balance -800 -1600 -1000 Weight 139.9 kg 139.4 kg Output: Urine 800 1600 1000 Uretheral (Watkins) 700 1000 Other: Voiding Method Indwelling Catheter Indwelling Catheter Indwelling Catheter # Voids 1 # Bowel Movements 1 1 - Exam -GENERAL: The patient is alert and oriented x3, not in any acute distress. Obese HEENT: Pupils are round and equally reacting to light. EOMI. No scleral icterus. No conjunctival pallor. Normocephalic, atraumatic. No pharyngeal erythema. No thyromegaly. CARDIOVASCULAR: S1 and S2 present. No murmurs, rubs, or gallops. -PULMONARY: Chest is clear to auscultation, bilateral scattered wheezing , no crackles. Decreased air entry on both sides ABDOMEN: Soft, nontender, nondistended, normoactive bowel sounds. No palpable organomegaly. MUSCULOSKELETAL: No joint swelling or deformity. EXTREMITIES: No cyanosis, clubbing, or pedal edema. NEUROLOGICAL: Gross neurological examination did not reveal any focal deficits. SKIN: No rashes. no petechiae. - Labs CBC & Chem 7: 12/24/23 05:21 12/27/23 09:07 Labs: Abnormal Lab Results - Last 24 Hours (Table) 12/27/23 12/27/23 12/28/23 Range/Units 16:40 20:30 11:50 POC Glucose (mg/dL) 219 H 144 H 125 H (70-110) mg/dL Assessment and Plan Assessment: Acute diastolic CHF with preserved ejection fraction Atrial fibrillation/Flutter, new onset Acute COPD exacerbation Bilateral basal pneumonia is suspected Obesity hypoventilation syndrome Pulmonary hypertension Metabolic encephalopathy Acute hypoxemic hypercapnic failure Morbid obesity with BMI of more than 40 Respiratory acidosis Plan: continue with metoprolol and Eliquis a Continue discontinue antibiotic, Unasyn Change IV continue with o prednisone Sapna continue with the Bumex. Cardiology and pulmonary team consult Patient is going to [facility] upon discharge Labs and medication were reviewed.. Continue same treatment. Continue with symptomatic treatment. Resume home medication. Monitor labs and vitals. DVT and GI prophylaxis. Further recommendations as per clinical course of the patient DVT prophylaxis: Subcutaneous heparin GI Prophylaxis: Ppi Prognosis is guarded
[2023-12-29 06:13] LABS: Glucose,Whole Blood 99 mg/dL (70-110)
[2023-12-29 11:42] LABS: Glucose,Whole Blood 126 mg/dL (70-110)
--- NOTE | 2023-12-29 15:18 | P.PN ---
Subjective Progress Note Date: 12/29/23 Principal diagnosis: Acute on chronic hypoxic and hypercapnic respiratory failure This is a morbidly obese 63-year-old female patient with typical features of obstructive sleep apnea and obesity hypoventilation syndrome. The patient came in to the emergency department because of worsening shortness of breath. While undergoing a CAT scan of the chest, the patient also was given a dose of Ativan. Subsequently, the patient became obtunded, lethargic and sleepy. Blood gas s howed hypercapnic respiratory failure probably a component of an acute on top of chronic hypercapnic respiratory failure with a pH of 7.24 with a pCO2 of 88 and pO2 of 47. Based on that, the patient was placed on a BiPAP at a pressure of 12 over 5 cm of water. Currently, the BiPAP is running and the patient is on FiO2 100% which is gradually being weaned off. Most recent blood gas showed a pH of 7.28 with a pCO2 of 81 and pO2 of 104. She is able to generate a tidal volume of 3 50-400. She underwent a CT angiogram of the chest that was suboptimal and there was no evidence of any central pulmonary embolism. There was anasarca with mild cardiomegaly and pulmonary arterial hypertension and mild component of CHF as the patient had upper lung septal lines being more prominent and thickened. The patient also had some atelectatic changes and early pneumonitis in the lower lobes bilaterally. Echocardiogram was again suboptimal due to her body habitus. The patient had a preserved LV function without any valvular abnormalities. Blood work shows chronic metabolic alkalosis with a serum bicarb of 36 and a sodium level of 142 and a potassium level of 4.2. WBC count of 13.3 with a hemoglobin 14.2 and a platelet count of 255. The viral panel has been negative. proBNP level is 2190. Troponins are 0.02. Smoking status is not known. On today's evaluation of 12/22/2023, the patient is being seen for a follow-up. The patient is more alert compared to yesterday. Overnight, the patient was kept on a BiPAP essentially on the same setting of 14 over 8 cm of water. FiO2 remains at 100% and the patient is not showing significant improvement in oxygenation. Nevertheless, neurologically she is more awake compared to yesterday. Follow-up blood gas was done And this was on the current BiPAP setting and it showed a pH of 7.47 with a pCO2 of 51 and a pO2 of 56 and there is improvement in the patient's hypercapnia. The patient is able to follow simple commands. She is able to communicate. The repeat chest x-ray from today was reviewed and there is cardiomegaly and pulm vascular congestion and small bilateral pleural effusion. The patient remains on diuretics and she is on Lasix 40 mg IV every 8 hours. Overall fluid balance is -2.7 L over the past 24 hours. Her white cell count today is at 16.3 with hemoglobin 15.6 and a platelet count of 207. Sodium is at 143, BUN is at 21 with a creatinine of 0.6 and a potassium level is at 4.7 and a serum bicarb is at 35. As mentioned, troponins are negative and the is at 0.02 and 0.01 respectively. The viral panel has been negative. She remains on bronchodilators. She remains on IV Solu-Medrol 60 mg every 6 hours and she is also on empiric antibiotic coverage with IV Unasyn. On today's evaluation of 12/23/2023, I am seeing the patient for a follow-up. The patient is awake and alert and communicating at this point in time. Note that she was in hypercapnic respiratory failure and initially the patient was treated with a BiPAP at a pressure of 14 over 8 cm of water and subsequently the patient was transitioned to high flow oxygen at 15 L/min nasal cannula. Her current pulse ox is around 87 to 88%. She remains on diuretics and the patient remains in negative fluid balance of 2.7 L over the past 24 hours. She remains also on bronchodilators and steroids. She seems to be less bronchospastic and wheezy. She is arousable and she is communicating at this point in time. Note that the patient also had an episode of A-fib RVR at around 5 PM yesterday afternoon. The patient was started on Cardizem and the patient is currently on metoprolol for rate control and the dose of 25 mg p.o. twice a day. The patient was also started on IV heparin. The patient remains on IV Unasyn. WBC count is 14.5 with hemoglobin 13 and a platelet count of 180. BUN is 36 with a creatinine of 0.69 and his sodium levels at 140. Procalcitonin level was at 0.06, essentially nonelevated. Echocardiogram that was limited showed a preserved LV function. No signs of any hypercapnic respiratory failure. She is awake and alert and communicating at this point in time. On today's evaluation of 12/24/2023, the patient is being seen for a follow-up. Awake and alert. No signs of any CO2 narcosis. She remains on high flow oxygen at 15 L with a pulse ox barely above 88%. She continues to have lower extremity edema. She did have bouts of delirium and hallucinations yesterday. This is attributed to systemic steroids and the patient will be taken off the IV Solu- Medrol and started on a prednisone burst taper. She remains on Unasyn. She remains on Lasix 40 mg IV every 8 hours. She is also on beta-blockers with meto prolol 25 mg p.o. twice daily. Blood work from today shows a WBC count of 16.9 with a hemoglobin 13 and a platelet count of 152. Her TSH was also low. Will need to check a free T4. Her cardiac rhythm is sinus at this point in time. LV function was normal. She reports some improvement in lower extremity edema. She is obviously this bronchospastic and wheezy. On today's evaluation of 12/25/2023, the patient is still requiring oxygen and her FiO2 gradually being weaned off and the patient is currently on 30 L of O2 nasal cannula. Fluid balance remains -1.2 L over the past 24 hours. Still has lower extremity edema the patient remains on IV Lasix 40 mg every 8 hours. Remains on Unasyn. Remains on bronchodilators. Remains on steroids and the patient is currently on a prednisone burst taper. Sodium is at 142 with a potassium level of 3.7, chloride is 95 with a bicarb level is at 40. The patient has developed some metabolic alkalosis. Will add 2 doses of Diamox for the next 24 hours. No altered mentation. The patient is seen today December 26, 2023 in follow-up on the selective care unit. She is currently sitting up in a chair at the bedside. Awake and alert in no acute distress. She is currently on 10 L high flow nasal cannula to maintain O2 saturations in the 90s. She is alternating with BiPAP 14/8 and 70% FiO2. Sodium 142. Potassium 3.8. Bicarb 44. BUN 36. Creatinine 1.07. Glucose 128. She is continued on DuoNeb ventilations, prednisone taper. Anticoagulated with Eliquis. Antibiotics in the form of Unasyn. NicoDerm patch in place. Remains on oral diuretics. Currently in a -4.8 L balance. Patient was reevaluated today on 12/27/2023, patient is doing relatively well, remains on 7 L high flow, titrated from yesterday 10 L high flow nasal cannula, patient is feeling better, breathing easier, remains on DuoNeb updrafts, prednisone, she is also on antibiotics in the form of Unasyn, and she is also receiving oral diuretics. Her labs today showed relatively normal electrolytes, bicarb is 37, and blood sugar is 128 last chest x-ray showed evidence of mild interstitial edema/congestive heart failure and this was a few days ago, will repeat chest x-ray in a.m. Patient was reevaluated today on 12/28/2023, clinically the patient is feeling much better, breathing a lot easier, however still requiring relatively high FiO2, she is on 5 L nasal cannula with O2 sats of 87%, patient is still requiring at least 7 L/min for maintaining adequate O2 saturation. Chest x-ray today continues to show pulmonary vascular congestion and possibly a small left pleural effusion, patient remains on diuretics, and she is responding well to diuresis patient has been in negative balance all along since admission. Basic metabolic profile is normal except for bicarb of 37, patient likely has chronic metabolic alkalosis compensating for her chronic respiratory acidosis and this is also getting worse with diuresis. Patient was reevaluated today on 12/29/2023, patient seems to be doing well, continues to steadily improve, continues to diurese, and I believe the patient is being considered for discharge planning to rehab today.Remains on 5 L nasal cannula with O2 sats of 90%, no labs were done today except for blood sugar of 126. Chest x-ray done yesterday showed mostly left basilar atelectasis and prominence of the pulmonary vasculature Objective - Vital Signs Vital signs: Vital Signs Temp 97.6 F 12/28/23 19:50 Pulse 76 12/29/23 12:28 Resp 16 12/29/23 12:28 BP 126/78 12/29/23 12:28 Pulse Ox 90 L 12/29/23 12:28 FiO2 50 12/29/23 00:10 Intake & Output 12/28/23 12/29/23 12/29/23 18:59 06:59 18:59 Intake Total 236 140 Output Total 1000 Balance -764 140 Weight 139.4 kg 139.8 kg Intake: IV 20 Invasive Line 2 20 Oral 236 120 Output: Urine 1000 Uretheral (Watkins) 1000 Other: Voiding Method Indwelling Catheter Toilet Toilet # Voids 1 1 # Bowel Movements 1 - Exam GENERAL EXAM: Reveals 63-year-old female obese, on 5 L high flow nasal cannula, in no distress HEAD: Normocephalic. EYES: Normal reaction of pupils, equal size. NOSE: Clear with pink turbinates. THROAT: No erythema or exudates. NECK: No masses, no JVD. CHEST: No chest wall deformity. LUNGS: Minich breath sounds and crackles at the bases CVS: S1 and S2 normal with no audible murmur, regular rhythm. ABDOMEN: No hepatosplenomegaly, normal bowel sounds, no guarding or rigidity. SKIN: No rashes CENTRAL NERVOUS SYSTEM: No focal deficits, tone is normal in all 4 extremities. EXTREMITIES: 1+ bipedal peripheral edema. No clubbing, no cyanosis. Peripheral pulses are intact. - Labs CBC & Chem 7: 12/24/23 05:21 12/27/23 09:07 Labs: Abnormal Lab Results - Last 24 Hours (Table) 12/28/23 12/28/23 12/29/23 Range/Units 16:34 20:11 11:40 POC Glucose (mg/dL) 158 H 153 H 126 H (70-110) mg/dL Assessment and Plan Assessment: Impression: Acute on chronic hypoxic and hypercapnic respiratory failure, multifactorial Acute exacerbation of COPD Obstructive sleep apnea syndrome Morbid obesity Obesity/hypoventilation syndrome Acute diastolic congestive heart failure/preserved ejection fraction Tobacco dependence syndrome Recommendation: Continue bronchodilators Continue steroids/oral prednisone and taper on outpatient basis over 2-week Continue diuretics Continue to titrate oxygen accordingly Continue eliquis, patient came in with new onset paroxysmal atrial fibrillation Will clear for discharge if cleared by other consultants Time with Patient: Less than 30
[2023-12-29 16:31] LABS: Glucose,Whole Blood 337 mg/dL (70-110)
[2023-12-29 20:26] LABS: Glucose,Whole Blood 153 mg/dL (70-110)
[2023-12-30 06:11] LABS: Glucose,Whole Blood 102 mg/dL (70-110)
--- NOTE | 2023-12-30 11:31 | P.DS ---
Providers Date of admission: 12/21/23 14:35 Attending physician: Paulo Miller MD Consults: 12/21/23 17:42 Consult Physician Urgent Consulting Provider: Bandar Jeong Consult Reason/Comments: bipap fio2 100% Do you want consulting provider notified?: Already Contacted Primary care physician: Stated None Hospital Course: Diagnoses: Acute diastolic CHF with preserved ejection fraction Atrial fibrillation/Flutter, new onset Acute COPD exacerbation Bilateral basal pneumonia is suspected Obesity hypoventilation syndrome Pulmonary hypertension Metabolic encephalopathy Acute hypoxemic hypercapnic failure Morbid obesity with BMI of more than 40 Respiratory acidosis hospital course: This is a pleasant 63 years of with past medical history of multiple medical problems Presents emergency room because of dyspnea, patient was found to have acute COPD exacerbation with acute on chronic diastolic CHF complicated by possible pneumonia. She had respiratory acidosis and hypoxic hypercapnic respiratory failure with metabolic encephalopathy. She was placed on medication and BiPAP on admission. She was treated with Unasyn, IV Lasix 40 mg and 60 mg of IV Solu- Medrol with pulmonary were following very closely. Patient wants BiPAP dependent for 2 to 3 days after that her oxygen requirements are improving currently down to 4 L/min. She is fully awake and oriented, less dependent on BiPAP overnight mainly. She denies any other complaint. No chest pain or change in urine or bowel habits. She has long-term arthritis which she feels much better upon discharge most likely secondary to steroids use. Insurance Agency Manager also evaluated the patient, She has new onset atrial fibrillation and she was started on a blood thinner Eliquis and heart rate currently controlled with metoprolol 50 mg. Patient feels she can go to rehab today. Patient was cleared for discharge by pulmonary service to go to rehab today.. Patient will be discharged on tapered prednisone, Bumex diuretics and Diamox added yesterday. Also patient is on Aldactone and other cardiac medication Problems and management plan were discussed with the patient and he verbalized understanding and acceptance Patient was found stable and can be discharged home in guarded prognosis however he needs follow-up as an outpatient. Patient was instructed to follow up with PCP within one week and patient agrees Patient was instructed to follow-up with wrapper rewinder Dr. Jeong in 2 weeks after discharge and avionics systems repairer Dr. Gastelum in 2 weeks after discharge and she agrees Physical exam -Gen: patient is a AAOx3, no distress. Obese CVS: S1-S2, RRR, no murmur -Lungs: B/L CTA, no wheezing. Mildly tachypneic on 4 L oxygen Abdomen: soft, no distention, no tenderness, positive bowel sounds Extremity: no leg edema or induration Time spent more than 35 minutes I Patient Condition at Discharge: Serious Plan - Discharge Summary Discharge Rx Participant: No New Discharge Prescriptions: New Apixaban [Eliquis] 5 mg PO BID #60 tab No Action Ibuprofen [Motrin Ib] 200 - 400 mg PO Q8H PRN PRN Reason: Pain Vitamin D3(Unknown Dose) 1 tab PO DAILY Ascorbic Acid [Vitamin C] 1,000 mg PO DAILY Zinc Gluconate [Zinc] 50 mg PO DAILY Discharge Medication List Ascorbic Acid [Vitamin C] 1,000 mg PO DAILY 12/21/23 [History] Vitamin D3(Unknown Dose) 1 tab PO DAILY 12/21/23 [History] Apixaban [Eliquis] 5 mg PO BID #60 tab 12/23/23 [Rx] Bumetanide [BUMEX] 1 mg PO BID@0900,1600 tab 12/30/23 [Rx] Ipratropium-Albuterol Nebulize [Duoneb 0.5 mg-3 mg/3 ml Soln] 3 ml INHALATION RT-QID each 12/30/23 [Rx] Metoprolol Tartrate [Lopressor] 50 mg PO BID tab 12/30/23 [Rx] Omeprazole [PriLOSEC] 40 mg PO DAILY #30 cap 12/30/23 [Rx] Spironolactone [Aldactone] 12.5 mg PO DAILY tab 12/30/23 [Rx] acetaZOLAMIDE [Diamox] 250 mg PO BID tab 12/30/23 [Rx] predniSONE 10 mg PO DIRECTED #40 tab 12/30/23 [Rx] Follow up Appointment(s)/Referral(s): None,Stated [Primary Care Provider] - 1-2 days
[2023-12-30 11:56] LABS: Glucose,Whole Blood 105 mg/dL (70-110)
--- NOTE | 2023-12-30 13:28 | P.PN ---
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 The patient came in to the emergency department because of worsening shortness of breath. While undergoing a CAT scan of the chest, the patient also was given a dose of Ativan. Subsequently, the patient became obtunded, lethargic and sleepy. Blood gas s howed hypercapnic respiratory failure probably a component of an acute on top of chronic hypercapnic respiratory failure with a pH of 7.24 with a pCO2 of 88 and pO2 of 47. Based on that, the patient was placed on a BiPAP at a pressure of 12 over 5 cm of water. Currently, the BiPAP is running and the patient is on FiO2 100% which is gradually being weaned off. Most recent blood gas showed a pH of 7.28 with a pCO2 of 81 and pO2 of 104. She is able to generate a tidal volume of 3 50-400. She underwent a CT angiogram of the chest that was suboptimal and there was no evidence of any central pulmonary embolism. There was anasarca with mild cardiomegaly and pulmonary arterial hypertension and mild component of CHF as the patient had upper lung septal lines being more prominent and thickened. The patient also had some atelectatic changes and early pneumonitis in the lower lobes bilaterally. Echocardiogram was again suboptimal due to her body habitus. The patient had a preserved LV function without any valvular abnormalities. Blood work shows chronic metabolic alkalosis with a serum bicarb of 36 and a sodium level of 142 and a potassium level of 4.2. WBC count of 13.3 with a hemoglobin 14.2 and a platelet count of 255. The viral panel has been negative. proBNP level is 2190. Troponins are 0.02. Smoking status is not known. On today's evaluation of 12/22/2023, the patient is being seen for a follow-up. The patient is more alert compared to yesterday. Overnight, the patient was kept on a BiPAP essentially on the same setting of 14 over 8 cm of water. FiO2 remains at 100% and the patient is not showing significant improvement in oxygenation. Nevertheless, neurologically she is more awake compared to yesterday. Follow-up blood gas was done And this was on the current BiPAP setting and it showed a pH of 7.47 with a pCO2 of 51 and a pO2 of 56 and there is improvement in the patient's hypercapnia. The patient is able to follow simple commands. She is able to communicate. The repeat chest x-ray from today was reviewed and there is cardiomegaly and pulm vascular congestion and small bilateral pleural effusion. The patient remains on diuretics and she is on Lasix 40 mg IV every 8 hours. Overall fluid balance is -2.7 L over the past 24 hours. Her white cell count today is at 16.3 with hemoglobin 15.6 and a platelet count of 207. Sodium is at 143, BUN is at 21 with a creatinine of 0.6 and a potassium level is at 4.7 and a serum bicarb is at 35. As mentioned, troponins are negative and the is at 0.02 and 0.01 respectively. The viral panel has been negative. She remains on bronchodilators. She remains on IV Solu-Medrol 60 mg every 6 hours and she is also on empiric antibiotic coverage with IV Unasyn. On today's evaluation of 12/23/2023, I am seeing the patient for a follow-up. The patient is awake and alert and communicating at this point in time. Note that she was in hypercapnic respiratory failure and initially the patient was treated with a BiPAP at a pressure of 14 over 8 cm of water and subsequently the patient was transitioned to high flow oxygen at 15 L/min nasal cannula. Her current pulse ox is around 87 to 88%. She remains on diuretics and the patient remains in negative fluid balance of 2.7 L over the past 24 hours. She remains also on bronchodilators and steroids. She seems to be less bronchospastic and wheezy. She is arousable and she is communicating at this point in time. Note that the patient also had an episode of A-fib RVR at around 5 PM yesterday afternoon. The patient was started on Cardizem and the patient is currently on metoprolol for rate control and the dose of 25 mg p.o. twice a day. The patient was also started on IV heparin. The patient remains on IV Unasyn. WBC count is 14.5 with hemoglobin 13 and a platelet count of 180. BUN is 36 with a creatinine of 0.69 and his sodium levels at 140. Procalcitonin level was at 0.06, essentially nonelevated. Echocardiogram that was limited showed a preserved LV function. No signs of any hypercapnic respiratory failure. She is awake and alert and communicating at this point in time. On today's evaluation of 12/24/2023, the patient is being seen for a follow-up. Awake and alert. No signs of any CO2 narcosis. She remains on high flow oxygen at 15 L with a pulse ox barely above 88%. She continues to have lower extremity edema. She did have bouts of delirium and hallucinations yesterday. This is attributed to systemic steroids and the patient will be taken off the IV Solu- Medrol and started on a prednisone burst taper. She remains on Unasyn. She remains on Lasix 40 mg IV every 8 hours. She is also on beta-blockers with meto prolol 25 mg p.o. twice daily. Blood work from today shows a WBC count of 16.9 with a hemoglobin 13 and a platelet count of 152. Her TSH was also low. Will need to check a free T4. Her cardiac rhythm is sinus at this point in time. LV function was normal. She reports some improvement in lower extremity edema. She is obviously this bronchospastic and wheezy. On today's evaluation of 12/25/2023, the patient is still requiring oxygen and her FiO2 gradually being weaned off and the patient is currently on 30 L of O2 nasal cannula. Fluid balance remains -1.2 L over the past 24 hours. Still has lower extremity edema the patient remains on IV Lasix 40 mg every 8 hours. Remains on Unasyn. Remains on bronchodilators. Remains on steroids and the patient is currently on a prednisone burst taper. Sodium is at 142 with a potassium level of 3.7, chloride is 95 with a bicarb level is at 40. The patient has developed some metabolic alkalosis. Will add 2 doses of Diamox for the next 24 hours. No altered mentation. The patient is seen today December 26, 2023 in follow-up on the selective care unit. She is currently sitting up in a chair at the bedside. Awake and alert in no acute distress. She is currently on 10 L high flow nasal cannula to maintain O2 saturations in the 90s. She is alternating with BiPAP 14/8 and 70% FiO2. Sodium 142. Potassium 3.8. Bicarb 44. BUN 36. Creatinine 1.07. Glucose 128. She is continued on DuoNeb ventilations, prednisone taper. Anticoagulated with Eliquis. Antibiotics in the form of Unasyn. NicoDerm patch in place. Remains on oral diuretics. Currently in a -4.8 L balance. Patient was reevaluated today on 12/27/2023, patient is doing relatively well, remains on 7 L high flow, titrated from yesterday 10 L high flow nasal cannula, patient is feeling better, breathing easier, remains on DuoNeb updrafts, prednisone, she is also on antibiotics in the form of Unasyn, and she is also receiving oral diuretics. Her labs today showed relatively normal electrolytes, bicarb is 37, and blood sugar is 128 last chest x-ray showed evidence of mild interstitial edema/congestive heart failure and this was a few days ago, will repeat chest x-ray in a.m. Patient was reevaluated today on 12/28/2023, clinically the patient is feeling much better, breathing a lot easier, however still requiring relatively high FiO2, she is on 5 L nasal cannula with O2 sats of 87%, patient is still requiring at least 7 L/min for maintaining adequate O2 saturation. Chest x-ray today continues to show pulmonary vascular congestion and possibly a small left pleural effusion, patient remains on diuretics, and she is responding well to diuresis patient has been in negative balance all along since admission. Basic metabolic profile is normal except for bicarb of 37, patient likely has chronic metabolic alkalosis compensating for her chronic respiratory acidosis and this is also getting worse with diuresis. Patient was reevaluated today on 12/29/2023, patient seems to be doing well, continues to steadily improve, continues to diurese, and I believe the patient is being considered for discharge planning to rehab today.Remains on 5 L nasal cannula with O2 sats of 90%, no labs were done today except for blood sugar of 126. Chest x-ray done yesterday showed mostly left basilar atelectasis and prominence of the pulmonary vasculature Patient was reevaluated today on 12/30/2023, continues to do well, feeling better, she was supposed to be discharged home yesterday, however there was a delay in her discharge, and she is going to rehab today. Remains on 5 L nasal cannula continues to respond to diuretics and to bronchodilators. Overall there is impr ovement, and I believe the patient should be considered for discharge today Objective - Vital Signs Vital signs: Vital Signs Temp 98.2 F 12/30/23 04:00 Pulse 87 12/30/23 12:04 Resp 16 12/30/23 12:04 BP 120/70 12/30/23 12:04 Pulse Ox 90 L 12/30/23 12:04 FiO2 50 12/29/23 00:10 Intake & Output 12/29/23 12/30/23 12/30/23 18:59 06:59 18:59 Intake Total 250 20 10 Balance 250 20 10 Intake: IV 20 20 10 Invasive Line 2 20 20 10 Oral 230 Other: Voiding Method Toilet Toilet Toilet # Voids 1 - Exam GENERAL EXAM: Reveals 63-year-old female obese, on 5 L nasal cannula HEAD: Normocephalic. EYES: Normal reaction of pupils, equal size. NOSE: Clear with pink turbinates. THROAT: No erythema or exudates. NECK: No masses, no JVD. CHEST: No chest wall deformity. LUNGS: Minimal fine crackles at the bases no rhonchi no wheezes CVS: S1 and S2 normal with no audible murmur, regular rhythm. ABDOMEN: No hepatosplenomegaly, normal bowel sounds, no guarding or rigidity. SKIN: No rashes CENTRAL NERVOUS SYSTEM: No focal deficits, tone is normal in all 4 extremities. EXTREMITIES: 1+ bipedal peripheral edema. No clubbing, no cyanosis. Peripheral pulses are intact. - Labs CBC & Chem 7: 12/24/23 05:21 12/27/23 09:07 Labs: Abnormal Lab Results - Last 24 Hours (Table) 12/29/23 12/29/23 Range/Units 16:30 20:25 POC Glucose (mg/dL) 337 H 153 H (70-110) mg/dL Assessment and Plan Assessment: Impression: Acute on chronic hypoxic and hypercapnic respiratory failure, multifactorial Acute exacerbation of COPD Obstructive sleep apnea syndrome Morbid obesity Obesity/hypoventilation syndrome Acute diastolic congestive heart failure/preserved ejection fraction Tobacco dependence syndrome Recommendation:. For discharge to rehab today in the meantime: Continue bronchodilators Taper oral prednisone over 2 weeks Continue diuretics Continue to titrate oxygen accordingly Continue eliquis, patient came in with new onset paroxysmal atrial fibrillation Will clear for discharge if cleared by other consultants Time with Patient: Less than 30
[2023-12-30 17:19] LABS: Glucose,Whole Blood 219 mg/dL (70-110)
[2023-12-30 19:56] LABS: Glucose,Whole Blood 244 mg/dL (70-110)
[2023-12-31 06:05] LABS: Glucose,Whole Blood 100 mg/dL (70-110)
[2023-12-31 10:14] VITALS: RESP 18; TEMP 97.9
[2023-12-31 11:29] LABS: Glucose,Whole Blood 145 mg/dL (70-110)
--- NOTE | 2023-12-31 14:01 | P.PN ---
Subjective Progress Note Date: 12/31/23 Principal diagnosis: Acute on chronic hypoxic and hypercapnic respiratory failure This is a morbidly obese 63-year-old female patient with typical features of obstructive sleep apnea and obesity hypoventilation syndrome. The patient came in to the emergency department because of worsening shortness of breath. While undergoing a CAT scan of the chest, the patient also was given a dose of Ativan. Subsequently, the patient became obtunded, lethargic and sleepy. Blood gas s howed hypercapnic respiratory failure probably a component of an acute on top of chronic hypercapnic respiratory failure with a pH of 7.24 with a pCO2 of 88 and pO2 of 47. Based on that, the patient was placed on a BiPAP at a pressure of 12 over 5 cm of water. Currently, the BiPAP is running and the patient is on FiO2 100% which is gradually being weaned off. Most recent blood gas showed a pH of 7.28 with a pCO2 of 81 and pO2 of 104. She is able to generate a tidal volume of 3 50-400. She underwent a CT angiogram of the chest that was suboptimal and there was no evidence of any central pulmonary embolism. There was anasarca with mild cardiomegaly and pulmonary arterial hypertension and mild component of CHF as the patient had upper lung septal lines being more prominent and thickened. The patient also had some atelectatic changes and early pneumonitis in the lower lobes bilaterally. Echocardiogram was again suboptimal due to her body habitus. The patient had a preserved LV function without any valvular abnormalities. Blood work shows chronic metabolic alkalosis with a serum bicarb of 36 and a sodium level of 142 and a potassium level of 4.2. WBC count of 13.3 with a hemoglobin 14.2 and a platelet count of 255. The viral panel has been negative. proBNP level is 2190. Troponins are 0.02. Smoking status is not known. On today's evaluation of 12/22/2023, the patient is being seen for a follow-up. The patient is more alert compared to yesterday. Overnight, the patient was kept on a BiPAP essentially on the same setting of 14 over 8 cm of water. FiO2 remains at 100% and the patient is not showing significant improvement in oxygenation. Nevertheless, neurologically she is more awake compared to yesterday. Follow-up blood gas was done And this was on the current BiPAP setting and it showed a pH of 7.47 with a pCO2 of 51 and a pO2 of 56 and there is improvement in the patient's hypercapnia. The patient is able to follow simple commands. She is able to communicate. The repeat chest x-ray from today was reviewed and there is cardiomegaly and pulm vascular congestion and small bilateral pleural effusion. The patient remains on diuretics and she is on Lasix 40 mg IV every 8 hours. Overall fluid balance is -2.7 L over the past 24 hours. Her white cell count today is at 16.3 with hemoglobin 15.6 and a platelet count of 207. Sodium is at 143, BUN is at 21 with a creatinine of 0.6 and a potassium level is at 4.7 and a serum bicarb is at 35. As mentioned, troponins are negative and the is at 0.02 and 0.01 respectively. The viral panel has been negative. She remains on bronchodilators. She remains on IV Solu-Medrol 60 mg every 6 hours and she is also on empiric antibiotic coverage with IV Unasyn. On today's evaluation of 12/23/2023, I am seeing the patient for a follow-up. The patient is awake and alert and communicating at this point in time. Note that she was in hypercapnic respiratory failure and initially the patient was treated with a BiPAP at a pressure of 14 over 8 cm of water and subsequently the patient was transitioned to high flow oxygen at 15 L/min nasal cannula. Her current pulse ox is around 87 to 88%. She remains on diuretics and the patient remains in negative fluid balance of 2.7 L over the past 24 hours. She remains also on bronchodilators and steroids. She seems to be less bronchospastic and wheezy. She is arousable and she is communicating at this point in time. Note that the patient also had an episode of A-fib RVR at around 5 PM yesterday afternoon. The patient was started on Cardizem and the patient is currently on metoprolol for rate control and the dose of 25 mg p.o. twice a day. The patient was also started on IV heparin. The patient remains on IV Unasyn. WBC count is 14.5 with hemoglobin 13 and a platelet count of 180. BUN is 36 with a creatinine of 0.69 and his sodium levels at 140. Procalcitonin level was at 0.06, essentially nonelevated. Echocardiogram that was limited showed a preserved LV function. No signs of any hypercapnic respiratory failure. She is awake and alert and communicating at this point in time. On today's evaluation of 12/24/2023, the patient is being seen for a follow-up. Awake and alert. No signs of any CO2 narcosis. She remains on high flow oxygen at 15 L with a pulse ox barely above 88%. She continues to have lower extremity edema. She did have bouts of delirium and hallucinations yesterday. This is attributed to systemic steroids and the patient will be taken off the IV Solu- Medrol and started on a prednisone burst taper. She remains on Unasyn. She remains on Lasix 40 mg IV every 8 hours. She is also on beta-blockers with meto prolol 25 mg p.o. twice daily. Blood work from today shows a WBC count of 16.9 with a hemoglobin 13 and a platelet count of 152. Her TSH was also low. Will need to check a free T4. Her cardiac rhythm is sinus at this point in time. LV function was normal. She reports some improvement in lower extremity edema. She is obviously this bronchospastic and wheezy. On today's evaluation of 12/25/2023, the patient is still requiring oxygen and her FiO2 gradually being weaned off and the patient is currently on 30 L of O2 nasal cannula. Fluid balance remains -1.2 L over the past 24 hours. Still has lower extremity edema the patient remains on IV Lasix 40 mg every 8 hours. Remains on Unasyn. Remains on bronchodilators. Remains on steroids and the patient is currently on a prednisone burst taper. Sodium is at 142 with a potassium level of 3.7, chloride is 95 with a bicarb level is at 40. The patient has developed some metabolic alkalosis. Will add 2 doses of Diamox for the next 24 hours. No altered mentation. The patient is seen today December 26, 2023 in follow-up on the selective care unit. She is currently sitting up in a chair at the bedside. Awake and alert in no acute distress. She is currently on 10 L high flow nasal cannula to maintain O2 saturations in the 90s. She is alternating with BiPAP 14/8 and 70% FiO2. Sodium 142. Potassium 3.8. Bicarb 44. BUN 36. Creatinine 1.07. Glucose 128. She is continued on DuoNeb ventilations, prednisone taper. Anticoagulated with Eliquis. Antibiotics in the form of Unasyn. NicoDerm patch in place. Remains on oral diuretics. Currently in a -4.8 L balance. Patient was reevaluated today on 12/27/2023, patient is doing relatively well, remains on 7 L high flow, titrated from yesterday 10 L high flow nasal cannula, patient is feeling better, breathing easier, remains on DuoNeb updrafts, prednisone, she is also on antibiotics in the form of Unasyn, and she is also receiving oral diuretics. Her labs today showed relatively normal electrolytes, bicarb is 37, and blood sugar is 128 last chest x-ray showed evidence of mild interstitial edema/congestive heart failure and this was a few days ago, will repeat chest x-ray in a.m. Patient was reevaluated today on 12/28/2023, clinically the patient is feeling much better, breathing a lot easier, however still requiring relatively high FiO2, she is on 5 L nasal cannula with O2 sats of 87%, patient is still requiring at least 7 L/min for maintaining adequate O2 saturation. Chest x-ray today continues to show pulmonary vascular congestion and possibly a small left pleural effusion, patient remains on diuretics, and she is responding well to diuresis patient has been in negative balance all along since admission. Basic metabolic profile is normal except for bicarb of 37, patient likely has chronic metabolic alkalosis compensating for her chronic respiratory acidosis and this is also getting worse with diuresis. Patient was reevaluated today on 12/29/2023, patient seems to be doing well, continues to steadily improve, continues to diurese, and I believe the patient is being considered for discharge planning to rehab today.Remains on 5 L nasal cannula with O2 sats of 90%, no labs were done today except for blood sugar of 126. Chest x-ray done yesterday showed mostly left basilar atelectasis and prominence of the pulmonary vasculature Patient was reevaluated today on 12/30/2023, continues to do well, feeling better, she was supposed to be discharged home yesterday, however there was a delay in her discharge, and she is going to rehab today. Remains on 5 L nasal cannula continues to respond to diuretics and to bronchodilators. Overall there is impr ovement, and I believe the patient should be considered for discharge today Patient was reevaluated today on 12/31/2023, doing well, feeling better, patient was cleared for discharge yesterday, however apparently there is an issue sending the patient to the [facility], and I believe the patient would like to go home today, I will actually clear the patient if cleared by other consultants to go home. Patient is steadily getting better, diuresing well, her COPD status is improving and her heart failure is improving. Nonetheless patient requires to remain on oxygen at 5 L/min Objective - Vital Signs Vital signs: Vital Signs Temp 97.9 F 12/31/23 08:00 Pulse 67 12/31/23 09:51 Resp 18 12/31/23 08:00 BP 119/70 12/31/23 08:00 Pulse Ox 83 L 12/31/23 09:51 FiO2 50 12/29/23 00:10 Intake & Output 12/30/23 12/31/23 12/31/23 18:59 06:59 18:59 Intake Total 1100 118 Balance 1100 118 Weight 138.9 kg Intake: IV 20 Invasive Line 2 20 Oral 1080 118 Other: Voiding Method Toilet Toilet Toilet # Voids 3 # Bowel Movements 0 - Exam GENERAL EXAM: Reveals 63-year-old female obese, on 4 L nasal cannula HEAD: Normocephalic. EYES: Normal reaction of pupils, equal size. NOSE: Clear with pink turbinates. THROAT: No erythema or exudates. NECK: No masses, no JVD. CHEST: No chest wall deformity. LUNGS: Minimal fine crackles at the bases no rhonchi no wheezes CVS: S1 and S2 normal with no audible murmur, regular rhythm. ABDOMEN: No hepatosplenomegaly, normal bowel sounds, no guarding or rigidity. SKIN: No rashes CENTRAL NERVOUS SYSTEM: No focal deficits, tone is normal in all 4 extremities. EXTREMITIES: 1+ bipedal peripheral edema. No clubbing, no cyanosis. Peripheral pulses are intact. - Labs CBC & Chem 7: 12/24/23 05:21 12/27/23 09:07 Labs: Abnormal Lab Results - Last 24 Hours (Table) 12/30/23 12/30/23 12/31/23 Range/Units 17:14 19:54 11:27 POC Glucose (mg/dL) 219 H 244 H 145 H (70-110) mg/dL Assessment and Plan Assessment: Impression: Acute on chronic hypoxic and hypercapnic respiratory failure, multifactorial Acute exacerbation of COPD Obstructive sleep apnea syndrome Morbid obesity Obesity/hypoventilation syndrome Acute diastolic congestive heart failure/preserved ejection fraction Tobacco dependence syndrome Recommendation:.. For discharge, patient will need home O2 at least at 4 L/min Continue bronchodilators Taper oral prednisone over 2 weeks Continue diuretics Continue to titrate oxygen accordingly Will clear for discharge if cleared by other consultants Time with Patient: Less than 30
[2023-12-31 15:23] VITALS: BP 132/82; PULSE 66
[2023-12-31 16:18] LABS: Glucose,Whole Blood 198 mg/dL (70-110)
--- NOTE | 2024-01-01 06:04 | P.DS ---
Providers Date of admission: 12/21/23 14:35 Attending physician: Paulo Miller MD Consults: 12/21/23 17:42 Consult Physician Urgent Consulting Provider: Bandar Jeong Consult Reason/Comments: bipap fio2 100% Do you want consulting provider notified?: Already Contacted Primary care physician: Stated None Hospital Course: Diagnoses: Acute diastolic CHF with preserved ejection fraction Atrial fibrillation/Flutter, new onset Acute COPD exacerbation Bilateral basal pneumonia is suspected Obesity hypoventilation syndrome Pulmonary hypertension Metabolic encephalopathy Acute hypoxemic hypercapnic failure Morbid obesity with BMI of more than 40 Respiratory acidosis hospital course: This is a pleasant 63 years of with past medical history of multiple medical problems Presents emergency room because of dyspnea, patient was found to have acute COPD exacerbation with acute on chronic diastolic CHF complicated by possible pneumonia. She had respiratory acidosis and hypoxic hypercapnic respiratory failure with metabolic encephalopathy. She was placed on medication and BiPAP on admission. She was treated with Unasyn, IV Lasix 40 mg and 60 mg of IV Solu- Medrol with pulmonary were following very closely. Patient wants BiPAP dependent for 2 to 3 days after that her oxygen requirements are improving currently down to 4 L/min. She is fully awake and oriented, less dependent on BiPAP overnight mainly. She denies any other complaint. No chest pain or change in urine or bowel habits. She has long-term arthritis which she feels much better upon discharge most likely secondary to steroids use. Certified Court Interpreter also evaluated the patient, She has new onset atrial fibrillation and she was started on a blood thinner Eliquis and heart rate currently controlled with metoprolol 50 mg. Patient feels she can go to rehab today. Patient was cleared for discharge by pulmonary and cardiology services to go home today.. Patient per PT evaluation supposed to go to subacute rehab and patient was agr eeable however prior authorization from her insurance providers is problematic as she has [id number] insurance, rn field case manager was on the case and she was still working on it with plan to continue pursuing approval this coming week however patient got frustrated and decided to go home instead. Patient also has been evaluated and she was found qualified for oxygen to go home with which is provided prior to discharge. Her Eliquis co-pay is $120, patient informed and she is going to follow-up outpatient. 1 month of free Eliquis coupon was provided for her upon discharge. And all the prescription went through to her pharmacy. Confirmed by staff and bedside nurse Laureen Patient will be discharged on tapered prednisone, Bumex diuretics and Diamox added Also patient is on Aldactone and other cardiac medication Problems and management plan were discussed with the patient and he verbalized understanding and acceptance Patient was found stable and can be discharged home in guarded prognosis however he needs follow-up as an outpatient. Patient was instructed to follow up with PCP within one week and patient agrees Patient was instructed to follow-up with data analysis manager Dr. Jeong in 2 weeks after discharge and spring winder Dr. Gastelum in 2 weeks after discharge and she agrees Physical exam -Gen: patient is a AAOx3, no distress. Obese CVS: S1-S2, RRR, no murmur -Lungs: B/L CTA, no wheezing. Mildly tachypneic on 4 L oxygen Abdomen: soft, no distention, no tenderness, positive bowel sounds Extremity: no leg edema or induration Time spent more than 35 minutes Patient Condition at Discharge: Serious Plan - Discharge Summary Discharge Rx Participant: No New Discharge Prescriptions: New Apixaban [Eliquis] 5 mg PO BID 30 Days #60 tab Bumetanide [BUMEX] 1 mg PO BID@0900,1600 #60 tab Omeprazole 40 mg PO DAILY #30 cap Spironolactone [Aldactone] 12.5 mg PO DAILY #30 tab acetaZOLAMIDE [Diamox] 250 mg PO BID #60 tab Metoprolol Tartrate [Lopressor] 50 mg PO BID #60 tab predniSONE 10 mg PO DIRECTED #40 tab Continue Vitamin D3(Unknown Dose) 1 tab PO DAILY Discontinued Ibuprofen [Motrin Ib] 200 - 400 mg PO Q8H PRN PRN Reason: Pain Zinc Gluconate [Zinc] 50 mg PO DAILY No Action Ascorbic Acid [Vitamin C] 1,000 mg PO DAILY Discharge Medication List Ascorbic Acid [Vitamin C] 1,000 mg PO DAILY 12/21/23 [History] Vitamin D3(Unknown Dose) 1 tab PO DAILY 12/21/23 [History] Apixaban [Eliquis] 5 mg PO BID 30 Days #60 tab 12/31/23 [Rx] Bumetanide [BUMEX] 1 mg PO BID@0900,1600 #60 tab 12/31/23 [Rx] Metoprolol Tartrate [Lopressor] 50 mg PO BID #60 tab 12/31/23 [Rx] Omeprazole 40 mg PO DAILY #30 cap 12/31/23 [Rx] Spironolactone [Aldactone] 12.5 mg PO DAILY #30 tab 12/31/23 [Rx] acetaZOLAMIDE [Diamox] 250 mg PO BID #60 tab 12/31/23 [Rx] predniSONE 10 mg PO DIRECTED #40 tab 12/31/23 [Rx] Follow up Appointment(s)/Referral(s): Shivam Colunga MD [STAFF PHYSICIAN] - 2 Weeks [facility],Equipment [NON-STAFF] - 1 Week (Call [facility] when you get home and they will deliver your oxygen concentrator) None,Stated [Primary Care Provider] - 1-2 days Bandar Jeong MD [STAFF PHYSICIAN] - 2 Weeks Activity/Diet/Wound Care/Special Instructions: Heart healthy diet Activity as tolerated your jillianis copay is $120 per month Discharge Disposition: HOME SELF-CARE
== END 2023-12-31 17:29 | disposition home or self-care (01) | DRG 291 ==
LOC: EC 09:52 → 3SCARD 14:35 → 2SICU 16:38 → 3SCARD 12-23 18:08
PROVIDERS: ADMIT Internal Medicine; ATTEND Internal Medicine
PROC: 5A09457 Assistance with Respiratory Ventilation, 24-96 Consecutive Hours, Continuous Positive Airway Pressure (ICD-10-PCS; principal; 2023-12-21)
PROC: 0D9670Z Drainage of Stomach with Drainage Device, Via Natural or Artificial Opening (ICD-10-PCS; 2023-12-21)
PROC: 05HF33Z Insertion of Infusion Device into Left Cephalic Vein, Percutaneous Approach (ICD-10-PCS; 2023-12-22)
DX: I11.0 Hypertensive heart disease with heart failure (principal); G93.41 Metabolic encephalopathy; J96.21 Acute and chronic respiratory failure with hypoxia; J96.22 Acute and chronic respiratory failure with hypercapnia; I50.33 Acute on chronic diastolic (congestive) heart failure; J18.9 Pneumonia, unspecified organism; I48.92 Unspecified atrial flutter; E87.29 Other acidosis; E87.3 Alkalosis; E66.2 Morbid (severe) obesity with alveolar hypoventilation; J44.1 Chronic obstructive pulmonary disease with (acute) exacerbation; J44.0 Chronic obstructive pulmonary disease with (acute) lower respiratory infection; Z68.43 Body mass index [BMI] 50.0-59.9, adult; J98.11 Atelectasis; I27.21 Secondary pulmonary arterial hypertension; I48.0 Paroxysmal atrial fibrillation; Z28.310 Unvaccinated for COVID-19; E78.5 Hyperlipidemia, unspecified; T50.2X5A Adverse effect of carbonic-anhydrase inhibitors, benzothiadiazides and other diuretics, initial encounter; M19.90 Unspecified osteoarthritis, unspecified site; F17.210 Nicotine dependence, cigarettes, uncomplicated; Z71.6 Tobacco abuse counseling; Z79.899 Other long term (current) drug therapy; Z71.3 Dietary counseling and surveillance
CPT/HCPCS: 36410; 36415; 36600; 51702; 51798; 71045; 71046; 71275; 76937; 80048; 80053; 82805; 83036; 83605; 83735; 83880; 84145; 84439; 84443; 84484; 85025; 85379; 85610; 85730; 87636; 93005; 93308; 94640; 94660; 94760; 96374; 96375; 96376; 99291

== ENCOUNTER 2024-03-05 19:46 | Outpatient (CLI) | payer BC ==
--- NOTE | 2024-03-11 23:19 | P.PCN ---
Date of Procedure: 03/05/24 Operative Findings: Polysomnography report Date of services 03/07/2024 Present history This is a 63-year-old female patient who is currently being investigated for obstructive sleep apnea as the patient has features of RENEE with loud snoring, sleep fragmentation and chronic hypersomnia and sleepiness. The patient also has COPD and the patient recently recovered from an acute on top of chronic hypoxic/hypercapnic respiratory failure. Suspect that she has a component of chronic hypercapnic respiratory failure. The patient has COPD with an FEV1 of 50% of predicted. The patient's pulse ox on room air is 94%. Patient is morbidly obese and has paroxysmal atrial fibrillation current rhythm is sinus a long with history of CHF with preserved LV function. Patient is a chronic smoker Pertinent physical findings Patient's height is 5 feet and 8 inches, weight is down 80 pounds and a body mass index is 42.6 Technical description The patient was studied using a standard complex polysomnography protocol that included recording of the 2 EKG, Central, occipital and frontal EEG, right and left outer canthus EOG, submental EMG, right and left anterior tibialis EMG, respiratory airflow by thermocouple and or pressure/flow transducer, respiratory efforts by abdominal and thoracic PVDF belts, oxygen saturation by cable oximetry. Position by observation synchronized the PSG. Equipment used: [employer]. Sleep architecture The total recording duration was 412.5 minutes. The total sleep time was 4 6.0 minutes. The wake after sleep onset time was 115.5 minutes. Sleep efficiency was calculated to be 49.9%. Latency to sleep onset was 89.5 minutes. The sleep architecture was characterized by 40.3% stage I, 59.0% stage II, 0% stage III, and 0.7% REM sleep. The total arousal index was 41.7. Latency to sleep onset was 89.5 minutes. The latency to REM sleep was 317.0 minutes Respiratory analysis The rest analysis demonstrated total of 225 obstructive events of which 0 obstructive apneas, 0 mixed apneas and 225 obstructive hypopneas and the resulting AHI was 58.8. No central apneas were noted throughout the sleep study. The patient's disease was not positional in nature. Oxygenation analysis The baseline pulse ox when awake was 90%. The lowest encountered pulse ox dur ing sleep was 51%. The patient spent approximately 1 hours and 54 minutes of the sleep time below pulse ox of 89%. This is consistent with severe nocturnal oxygen saturation Sleep continuity summary The patient reported 143 arousals with an index of 41.7. The respiratory arousal index was 19.5 Periodic limb movement summary The patient had total of 4 periodic limb movement activity with an index of 1.2. No arousals Cardiac summary Average heart rate was 67 with a minimum heart rate of 62 and a maximum of 73 Assessment Severe obstructive sleep apnea with an AHI of 58.8. Respiratory events were essentially in the form of obstructive hypopneas Chronic hypoxic respiratory failure with a baseline pulse ox of 90% when awake and the patient encountered severe desaturations with a minimum pulse ox of 51% Chronic hypercapnic respiratory failure COPD Obesity with a BMI of 42.6 Paroxysmal A-fib, current rhythm is sinus Abnormal sleep architecture with over representation of stage I sleep and diminished delta wave and REM. Excessive sleep fragmentation secondary obstructive sleep apnea Chronic anxiety/depression CHF with preserved LV function Smoker Plan Proceed with in lab CPAP titration regarding the patient's severe COPD and obstructive sleep apnea and chronic hypoxic/hypercapnic respiratory failure. Optimize comorbidities. Maintain regular sleep schedule and optimize sleep hygiene measures. Will continue to follow.
== END 2024-03-06 06:00 | disposition home or self-care (01) ==
LOC: 3 N SLEEP 19:46
PROVIDERS: ATTEND Internal Medicine Critical Care Medicine
DX: G47.33 Obstructive sleep apnea (adult) (pediatric) (principal); J96.21 Acute and chronic respiratory failure with hypoxia; J96.11 Chronic respiratory failure with hypoxia; J44.9 Chronic obstructive pulmonary disease, unspecified; I48.0 Paroxysmal atrial fibrillation; F17.200 Nicotine dependence, unspecified, uncomplicated; F32.A Depression, unspecified; F41.9 Anxiety disorder, unspecified; G47.36 Sleep related hypoventilation in conditions classified elsewhere; I50.9 Heart failure, unspecified; G47.52 REM sleep behavior disorder; J96.12 Chronic respiratory failure with hypercapnia; E66.01 Morbid (severe) obesity due to excess calories; Z68.41 Body mass index [BMI] 40.0-44.9, adult; Z79.01 Long term (current) use of anticoagulants; Z79.899 Other long term (current) drug therapy
CPT/HCPCS: 95810

== ENCOUNTER → 2024-05-09 | Outpatient (CLI) | payer BC | END | disposition home or self-care (01) | LOC: RADNMMAIN 08:31 | PROVIDERS: ATTEND Family Medicine | DX: Z53.9 Procedure and treatment not carried out, unspecified reason (principal) ==

== ENCOUNTER → 2024-05-30 | Outpatient (CLI) | payer BC ==
--- NOTE | 2024-07-11 13:17 | NM ---
Patient: Karen Chew Ordering Physician: Unknown, Unknown ID: [id number] Phone, Pager: Phone: N/A Pager: N/A : [phone] Age/Gender: 64Y, F Primary Location: N/A Procedure: NM THYROID UPTAKE W/IMAGING Study Date: 05/30/2024 2:05:00 PM EXAMINATION TYPE: NM thyroid image w uptake DATE OF EXAM: 06/15/2024 COMPARISON: NONE CLINICAL INDICATION: 64-year-old female E05.90 TECHNIQUE: Thyroid iodine uptake is calculated and images performed after the oral administration of 299 uCi 1-123 Capsule. FINDINGS: There are areas of nodular increased uptake throughout both lobes of thyroid gland. There is a small round photopenic defect along left upper extremity being correlate with ultrasound findings. The 4 hour iodine uptake is calculated at 13.8% (normal range 8-14%). The 24-hour iodine uptake is calculated at 47.7% (normal range 15-35%). IMPRESSION: 1. Increased uptake with multinodular pattern suggesting toxic multinodular goiter. 2. Correlate with ultrasound findings for a small cold nodule along the periphery of the left upper p ole.
== END | disposition home or self-care (01) ==
LOC: RADNMMAIN 10:02
PROVIDERS: ATTEND Family Medicine
DX: E05.90 Thyrotoxicosis, unspecified without thyrotoxic crisis or storm (principal)
CPT/HCPCS: 78014; A9516